=== PATIENT | female | born 1950 | race Caucasian/White ===

== ENCOUNTER 2022-06-23 10:44 | Emergency (ER) | payer MEDICARE, OTHER, SELFPAY ==
--- NOTE | ~2022-06-23 | XR_ITS ---
EXAMINATION: XR chest 2V DATE: 06/23/2022 11:24 INDICATION: Right-sided chest pain. TECHNIQUE: Frontal and lateral views of the chest were obtained. COMPARISON: None. FINDINGS: There is no pneumonia, pleural effusion, or pneumothorax. The heart size is normal. Surgica l clips overlie the chest. IMPRESSION: 1. No acute cardiopulmonary disease. Reviewed, dictated and finalized at location A.
[2022-06-23 10:58] VITALS: BP 148/69; PULSE 96; RESP 16; TEMP 36.7; O2SAT 95
--- NOTE | 2022-06-23 11:02 | ED.GENADULT ---
HPI - General Adult General Chief complaint: Eye Problems Stated complaint: eye prob, chest pain due to fall Time Seen by Provider: 06/23/22 11:05 Source: patient, RN notes reviewed and old records reviewed Mode of arrival: ambulatory Limitations: no limitations History of Present Illness HPI narrative: 71-year-old female who presents to express care with complaints of eye discharge and puffiness with some sclera redness bilaterally since yesterday morning, She has been experiencing some itching and eyes puffy with upper and lower eye lid swelling with some blurring of vision, denies any sharp pain to her eyes. Patient reports that 2 weeks ago she lifted a 5 gallon diesel can and she lost her balance and fell onto her tractor bumper hitting her chest. She states that she had some bruising along her upper chest and she also has some discomfort along right lateral chest wall area. Patient reports that bruising has subsided but remains tender when she takes a deep breath or when she coughs, denies any shortness of breath with SAO2 95% on room air MD complaint: eyes itching matted,contusion to chest with fall Onset (ago): week(s) (1 day eyes, and 2 weeks ago fall) Severity scale (1-10): 6 Treatments prior to arrival: cold therapy and other (tylenol, otc eye drop) Related Data Home Medications Medication Instructions Recorded Confirmed buprenorphine 10 mcg/hour weekly 1 patch transdermal WEEKLY 06/23/22 06/23/22 transdermal patch leflunomide 20 mg tablet (Arava) 20 mg PO DAILY 06/23/22 06/23/22 omeprazole 40 mg capsule,delayed 40 mg PO BID 06/23/22 06/23/22 release rituximab 10 mg/mL 10 mg IV MONTHLY 06/23/22 06/23/22 concentrate,intravenous (Rituxan) zolpidem 10 mg tablet 10 mg PO HS 06/23/22 06/23/22 Allergies Allergy/AdvReac Type Severity Reaction Status Date / Time Sulfa (Sulfonamide Allergy Itching Verified 06/23/22 11:13 Antibiotics) Review of Systems Review of Systems: CONSTITUTIONAL: Denies fever, chills, or sweats. EYES: Denies visual changes states some blurring,positive for redness, or mucoid discharge. ENT: Denies rhinorrhea, congestion, sore throat, or otalgia. CARDIOVASCULAR: Denies chest pain, palpitations, or edema, reports that she has some discomfort to upper chest and lateral right chest related to fall 2 weeks ago, RESPIRATORY: Denies cough or dyspnea. GASTROINTESTINAL: Denies abdominal pain, nausea, vomiting, or diarrhea. GENITOURINARY: Denies dysuria or hematuria. SKIN: Denies rash or itching. MUSCULOSKELETAL: Denies back pain, joint pain, or myalgia, some scattered joint pain related to history of rheumatoid arthritis NEUROLOGIC: Denies headache, numbness, or weakness. PSYCHIATRIC: Denies anxiety or depression. All systems reviewed & are unremarkable except as noted in HPI and below PMFSH Past Medical History Medical History (Updated 06/24/22 @ 07:39 by Emma Pineda NP) Breast cancer left Fracture of left wrist GERD (gastroesophageal reflux disease) Rheumatoid arthritis Surgical History Surgical History (Updated 06/24/22 @ 07:39 by Emma Pineda NP) H/O: hysterectomy History of bunionectomy S/P lumpectomy, left breast S/P removal of thyroid nodule Social History Social History (Updated 06/23/22 @ 12:15 by Emma Pineda NP) Smoking status: Never smoker Alcohol intake: current Alcohol use details: rare social Substance use type: does not use Living arrangements: alone Additional living arrangements comments: recent Gender identity (if verbalized by the patient): Female Comments At time of signature, agree with nursing past medical, surgical, social and family history. There is no relevant family history pertinent to the presenting complaint Exam Narrative: GENERAL: Well-appearing, well-nourished, and in no acute distress. HEAD: Normocephalic, atraumatic. EYES: PERRLA and EOMI. eye lids puffy with mucoid discharge vision a little blurry
[2022-06-23 11:17] VITALS: BP 148/69; PULSE 96; RESP 16; TEMP 36.7; O2SAT 95
== END 2022-06-23 11:45 | disposition home or self-care (01) ==
PROVIDERS: Emergency Provider Registered Nurse
DX: H10.9 Unspecified conjunctivitis (principal); S20.211A Contusion of right front wall of thorax, initial encounter; W19.XXXA Unspecified fall, initial encounter; K21.9 Gastro-esophageal reflux disease without esophagitis; M06.9 Rheumatoid arthritis, unspecified; Z85.3 Personal history of malignant neoplasm of breast
CPT/HCPCS: 71046; 99213; G0463

== ENCOUNTER 2022-08-01 17:36 | Emergency (ER) | payer MEDICARE, OTHER, SELFPAY ==
--- NOTE | ~2022-08-01 | XR_ITS ---
EXAMINATION: XR chest 2V DATE: 08/01/2022 18:03 INDICATION: Cough. Fever. TECHNIQUE: Frontal and lateral views of the chest were obtained. COMPARISON: Chest 2 views 06/23/2022 FINDINGS: There is no pneumonia, pleural effusion, or pneumothorax. Cardiomegaly is noted. Again seen is prominent extrapleural fat on the left. There are surgical clips in left axilla. Surgical clips o verlie the right upper chest. IMPRESSION: 1. Cardiomegaly. Reviewed, dictated and finalized at location A. IMPRESSION: 1. Cardiomegaly.
[2022-08-01 17:44] VITALS: BP 144/75; PULSE 102; RESP 18; TEMP 37.9; O2SAT 98
[2022-08-01 17:57] VITALS: BP 144/75; PULSE 102; RESP 18; TEMP 37.9; O2SAT 98
--- NOTE | 2022-08-01 18:18 | ED.URI ---
HPI - URI/Sore Throat General Chief Complaint: Upper Respiratory Infection Stated Complaint: Cough Source: patient, RN notes reviewed and old records reviewed Mode of arrival: ambulatory Limitations: no limitations History of Present Illness HPI Narrative: 72 year old female who present to express care with complaints of cough starting on with increased symptoms on Saturday. Patient reports that she has been using her inhalers,Robitussin, and Benzonatate for her symptoms with no improvement in her symptoms. Patient reports that she is hoarse and cough is hacking with no acute shortness of breath but continues to have low grade fevers. Patient does hav Rheumatoid arthritis and is on monthly biologicals to treat her arthritis. MD elicited complaint: cough and sore throat Pertinent past history: asthma and immunosuppression Onset (ago): day(s) (5-6) Treatments prior to arrival: other (inhalers, Robitussin, andBenzonatate) Related Data Home Medications Medication Instructions Recorded Confirmed leflunomide 20 mg tablet (Arava) 20 mg PO DAILY 06/23/22 08/01/22 omeprazole 40 mg capsule,delayed 40 mg PO BID 06/23/22 08/01/22 release rituximab 10 mg/mL 10 mg IV MONTHLY 06/23/22 08/01/22 concentrate,intravenous (Rituxan) zolpidem 10 mg tablet 10 mg PO HS 06/23/22 08/01/22 gabapentin 600 mg tablet 600 mg PO BID 08/01/22 08/01/22 Allergies Allergy/AdvReac Type Severity Reaction Status Date / Time Sulfa (Sulfonamide Allergy Itching Verified 08/01/22 17:44 Antibiotics) Review of Systems Review of Systems: CONSTITUTIONAL: reports malaise, chills, sweats, or fever. EYES: Denies visual changes, redness, or discharge. ENT: Reports rhinorrhea, congestion,no sinus pain or otalgia, positive for sore throat. CARDIOVASCULAR: Denies chest pain, palpitations, or edema. RESPIRATORY: Reports cough.? Denies acute dyspnea, increased cough with exertion and when lying down GASTROINTESTINAL: Denies abdominal pain, nausea, vomiting, diarrhea SKIN: Denies rash or itching. MUSCULOSKELETAL: Denies myalgia. NEUROLOGIC: Denies headache. All systems reviewed & are unremarkable except as noted in HPI and below PMFSH Past Medical History Medical History (Updated 08/01/22 @ 18:52 by Emma Pineda NP) Breast cancer left Fracture of left wrist GERD (gastroesophageal reflux disease) Rheumatoid arthritis Surgical History Surgical History (Updated 06/24/22 @ 07:39 by Emma Pineda NP) H/O: hysterectomy History of bunionectomy S/P lumpectomy, left breast S/P removal of thyroid nodule Social History Social History (Updated 06/23/22 @ 12:15 by Emma Pineda NP) Smoking status: Never smoker Alcohol intake: current Alcohol use details: rare social Substance use type: does not use Additional living arrangements comments: recent Gender identity (if verbalized by the patient): Female Comments At time of signature, agree with nursing past medical, surgical, social and family history. There is no relevant family history pertinent to the presenting complaint Exam Narrative: GENERAL: Well-appearing, well-nourished, and in no acute distress. HEAD: Normocephalic EYES: PERRLA, conjunctivae clear ENT: Nares clear, turbinates edematous and erythematous, clear discharge. Mucous membranes moist. TM pearly leger with dull light reflex bilaterally; no tragal tenderness. Oropharynx erythematous without lesions. Tonsils not enlarged and without exudate, no drooling, no hoarseness, no trismus, uvula midline. NECK: Supple. No lymphadenopathy CHEST: Clear to auscultation, breath sounds equal. No wheezing, rhonchi, rales, or stridor. No respiratory distress, speaks in full sentences.hoarseness with harsh non productive cough with SAO2 98% on room air HEART: Regular rate and rhythm. No murmur heard. SKIN: Warm, dry, no rash. NEURO: Alert and oriented x3. PSYCH: Normal mood and affect
== END 2022-08-01 19:00 | disposition home or self-care (01) ==
PROVIDERS: Emergency Provider Registered Nurse
DX: J06.9 Acute upper respiratory infection, unspecified (principal); R05.1 Acute cough; Z20.822 Contact with and (suspected) exposure to COVID-19; K21.9 Gastro-esophageal reflux disease without esophagitis; M06.9 Rheumatoid arthritis, unspecified; Z85.3 Personal history of malignant neoplasm of breast
CPT/HCPCS: 71046; 87426; 87804; 99213; C9803; G0463

== ENCOUNTER 2023-12-21 09:13 | Emergency (ER) | payer MEDICARE, OTHER, SELFPAY ==
--- NOTE | ~2023-12-21 | XR_ITS ---
EXAMINATION: XR chest 2V DATE: 12/21/2023 09:48 INDICATION: Cough and congestion TECHNIQUE: frontal and lateral views of the chest were obtained. COMPARISON: Chest radiograph dated 08/01/2022 FINDINGS: Unchanged opacity with sharply delineated margins at the side port is lateral right lower lung zone w hich could represent atelectasis/scarring versus focal increased subpleural fat. No new airspace opac ities, pulmonary edema, pleural effusion or pneumothorax. Heart size is normal. Surgical clips the le ft breast. Mild thoracic kyphosis with mild spondylosis and chronic mild anterior wedging of a couple mid thoracic vertebral bodies. IMPRESSION: 1. No acute cardiopulmonary disease. Reviewed, dictated and finalized at location A.
[2023-12-21 09:22] VITALS: BP 137/62; PULSE 76; RESP 20; TEMP 36.9; O2SAT 98
--- NOTE | 2023-12-21 09:34 | ED.GENADULT ---
HPI - General Adult General Chief complaint: Upper Respiratory Infection Stated complaint: Cough/Chest Congestion Time Seen by Provider: 12/21/23 09:34 Source: patient, RN notes reviewed and old records reviewed Mode of arrival: ambulatory Limitations: no limitations History of Present Illness HPI narrative: 73-year-old female to Express Care for complaint wheezing, nonproductive for 4 days. Patient endorses some subjective fever 2 days resolved. Patient history left breast cancer, treated with chemo and radiation. Patient has attempted to treat at home with [id number] medications with some relief. Patient able to control fluids by mouth Related Data Home Medications Medication Instructions Recorded Confirmed leflunomide 20 mg tablet (Arava) 20 mg PO DAILY 06/23/22 12/21/23 omeprazole 40 mg capsule,delayed 40 mg PO BID 06/23/22 12/21/23 release albuterol sulfate 90 mcg/actuation 2 puff inhalation QID PRN 12/21/23 12/21/23 aerosol inhaler Shortness Of Breath Or Wheezing budesonide-formoterol HFA 160 2 puff inhalation Q12H 12/21/23 12/21/23 mcg-4.5 mcg/actuation aerosol inhaler (Symbicort) Allergies Allergy/AdvReac Type Severity Reaction Status Date / Time Sulfa (Sulfonamide Allergy Intermediate Itching Verified 12/21/23 09:38 Antibiotics) Review of Systems Review of Systems: All systems reviewed & are unremarkable except as noted in HPI and below Constitutional: Constitutional: Reports as per HPI, Denies body ache(s), Denies chills and Reports fever(s) ( subjective; resolved) Eyes: Eyes: Reports no additional eye complaints ENT: Reports system reviewed and no additional complaints, except as documented, Denies headache(s) and Denies sore throat Cardiovascular: Cardiovascular: Reports no additional cardiovascular complaints, Denies chest pain and Denies dyspnea Respiratory: Respiratory: Reports no additional respiratory complaints, Reports cough ( nonproductive) and Denies dyspnea Musculoskeletal: Musculoskeletal: Reports no additional musculoskeletal complaints Neurologic: Reports system reviewed and no additional complaints, except as documented Psychiatric: Psychiatric: Reports no additional psychiatric complaints [facility] Past Medical History Medical History (Updated 12/21/23 @ 10:28 by Jeni Lowe APRN) Breast cancer left Fracture of left wrist GERD (gastroesophageal reflux disease) Rheumatoid arthritis Surgical History Surgical History (Updated 06/24/22 @ 07:39 by Emma Pineda NP) H/O: hysterectomy History of bunionectomy S/P lumpectomy, left breast S/P removal of thyroid nodule Social History Social History (Updated 06/23/22 @ 12:15 by Emma Pineda NP) Smoking status: Never smoker Alcohol intake: current Alcohol use details: rare social Substance use type: does not use Living arrangements: alone Additional living arrangements comments: recent Gender identity (if verbalized by the patient): Female Comments At the time of my signature, I reviewed and agree with the nursing past medical, surgical, social, and family history. There is no relevant family history pertinent to the patient complaint. Exam Const: General: cooperative, healthy appearing, comfortable, no acute distress, alert and well nourished Nutritional Appearance: well nourished Orientation/consciousness: patient oriented x3 Limitations: no limitations HENMT: Head: normal to inspection Ears: external ears normal Face/Nose/Sinus: Normal external nose present, Normal nares present, normal facial exam, No erythema and No edema Face and sinus: normal facial exam, no erythema and no edema Mouth: Yes Normal oral and palatal mucosa present Throat: posterior oropharynx abnormal erythema and postnasal drainage Eyes: General: appearance normal, both eyes and all related structures Neck: Neck: normal visual inspection, full ROM and no meningeal signs Lymphati
[2023-12-21] MEDS: predniSONE 20 MG TABLET 40 MG PO (09:53)
[2023-12-21] MEDS: ALBUTEROL SULFATE NEB 2.5 MG/3 ML INH INHALATION (09:54)
[2023-12-21] MEDS: IPRATROPIUM BR 0.02% INH SOLN 0.5 MG/2.5 ML VIAL INHALATION (09:54)
== END 2023-12-21 10:30 | disposition home or self-care (01) ==
PROVIDERS: Emergency Provider Nurse Practitioner Family
DX: J06.9 Acute upper respiratory infection, unspecified (principal); J45.901 Unspecified asthma with (acute) exacerbation; K21.9 Gastro-esophageal reflux disease without esophagitis; M06.9 Rheumatoid arthritis, unspecified; Z85.3 Personal history of malignant neoplasm of breast; Z90.12 Acquired absence of left breast and nipple
CPT/HCPCS: 71046; 94640; 99213; G0463; J7512

== ENCOUNTER 2024-11-28 18:08 | Emergency (ER) | payer MEDICARE, OTHER, SELFPAY ==
--- OUTSIDE RECORDS SUMMARY | 2024-11-28 18:13 | XMS_ITS | Encounter Summary ---
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 Name Role Phone Farzana Philippe MD Primary Care Provider Elsi Torre MD Unavailable Ashlyn Prince MD Unavailable Iker Contreras MD Unavailable Lesa CHARLES MD, Hang Dorsey Unavailable + Yonny Whitehead MD Unavailable Eric Lopez MD Unavailable [phone] Encounter Details Date Type Department Care Team (Late st Contact Info) Description 11/18/2017 Orders Only [facility] ProviderSanket MD [address] [place] [id number] Social History Tobacco Use Types Packs/Day Years Used Date Smoking Tobacco: Never Smokeless Tobacco: Never Alcohol Use Standard Drinks/Week Comments No 0 (1 standard drink = 0.6 oz pur e alcohol) Comments No Sex and Gender Information Value Date Recorded Sex Assigned at Not on file Legal Sex Female 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 us Historical Provider LAB BLOOD ORDERABLES Gina l Result documented in this encounter Visit Diagnoses Not on filedocumented in this encounter Additional Health Concerns Infection Onset Date Last Indicated Resolved Time COVID: Suspected 09/18/2022 09/18/2022 09/18/2022 6:50 PM LEATHER STAMPER COVID: Suspected 06/27/2023 06/27/2023 06/28/2023 3:07 AM CDT documented as of this encounter Care Teams Concrete Swimming Pool Installer Relationship Specialty Start Date End Date Farzana Philippe MD [address] [facility] [address] [place] [address] PCP - General 01/04/17 [place] [id number] [place] [address] Rheumatology 07/02/17 12/24/23 Ashlyn Prince MD [address] [place] [address] Obstetrics and Gynecology 07/15/17 Iker Contreras MD [address] [facility] [place] [place] [address] Medical Oncology 07/15/17 05/12/20 Hang Mcfadden III, MD [address] [place] [address] Radiation Oncology 07/15/17 Yonny Whitehead MD [address] [place] [address] Medical Oncologist/Hematologis t Hematology 05/13/20 Eric Lopez MD [address] [facility] [address] [place] [address] Consulting Physician Surgical Oncology 12/18/23 documented as of this encounter
--- OUTSIDE RECORDS SUMMARY | 2024-11-28 18:13 | XMS_ITS ---
Author Organization [facility] pelon Address [address] [place] [address] Care Team Providers Care Buccaro Name Role Phone Farzana Philippe MD Primary Care Provider Melecio FuentesOlgag Unavailable [phone] Allergies Allergen (clinical drug ingredient) Drug/Non Drug Allergy documented on EMR Reaction Allergy Type Onset Date Status meperidine Demerol Unknown Drug Allergy 01/30/2009 Activ e sulfasalazine sulfaSALAzine Unknown Drug Allergy 1 Active Substance with penicillin structure and antibacterial mechanism of action (substance) Penicillins Unknown Drug Allergy 07/24/2023 Active Substance with sulfonamide structure and antibacterial mechanism of action (substance) Sulfa Antibiotics Unknown Drug Allergy 07/19/2023 Active Kiwi Unknown Allergy 07/24/2023 Active Results Component Value Reference Range Notes CBC w auto diff Reviewed date:07/30/2024 09:42:15 PM Interpretation:Lab Result Generalized Performing Lab:[facility] , [address] [place] [address]. [facility] [address] Notes/Report: WBC 5.8 3.8-9.9 K/cumm Hgb 14.0 11.9-15.5 g/dL Hct 44.3 35.6-45.5 % Platelet Ct 196 150-400 K/cumm MPV 10.7 9.1-12.3 fL RBC 4.35 3.90-5.20 M/cumm MCV 101.8 81.3-96.4 fL MCH 32.2 27.1-33.3 pg MCHC 31.6 32.3-35.7 g/dL RDW CV 14.5 11.1-14.9 % RDW SD 54.2 35.7-48.1 fL NRBC Abs Auto 0.00 0.00-0.01 K/cumm Comprehensive metabolic pane l (CMP) Reviewed date:07/30/2024 09:42:15 PM Interpretation:Lab Result Generalized Performing Lab:[facility] , [address] [place] [address]. [place] [address] Notes/Report: Sodium 143 135-145 mmol/L Plasma Potassium 4.9 3.3-4.9 mmol/L Chloride 105 97-110 mmol/L Total CO2 29 22-32 mmol/L Anion Gap 9 2-15 mmol/L BUN 14 6-25 mg/dL Creatinine 0.78 0.60-1.10 mg/dL Glucose 103 70-199 mg/dL Interpretive Data Fasting glucose >/= 126 mg/dl is diagnostic for diabetes. Fasting is defined as no caloric intake for at least 8 hours. Fasting glucose between 100 mg/dl to 125 mg/dl is diagnostic of prediabetes. In a patient with classic symptoms of hyperglycemia or hyperglycemic crisis, a random glucose >/= 200 mg/dl is diagnostic for diabetes. In the absence of unequivocal hyperglycemia, results should be confirmed by repeat testing. The classification and Diagnosis of Diabetes Diabetes Care 2021; 46: S19-S40. Current interpretive data was last revised 2022. Total Calcium 9.3 8.5-10.3 mg/dL Total Bilirubin 0.4 0.1-1.2 mg/dL Plasma Total Protein 6.3 6.5-8.5 g/dL Albumin 3.8 3.5-5.0 g/dL Alkaline Phosphatase 93 40-130 Units/L ALT 33 7-45 Units/L AST 27 10-45 Units/L REASON FOR VISIT yd/3 month follow up/flc, RA Medications Medication SIG (Take, Route, Frequency, Duration) Notes Start Date End Date Status valACYclovir HCl 500 MG take 2 tablets (1,000 mg) by oral route once daily Oral 1 Active Leflunomide 20 MG 1 tablet Orally Once a day for 90 days 03/04/2024 10/28/2024 Active Hydroxychloroquine Sulfate 200 MG 2 Orally daily for 90 days 10/28/2024 Active Symbicort 80-4.5 MCG/ACT inhale 2 puffs by inhalation route 2 times per day in the morning and evening Inhalation 2 Active Melatonin 10 MG take 1 capsule by oral route once Oral 1 Active cyanocobalamin (vitamin B-12) 5,000 mcg take 1 capsule by oral route once oral 1 *Reorder from [facility] for eRx and Interaction Alerts* Active Restasis 0.05 % instill 1 drop into right eye by ophthalmic route every 12 hours Ophthalmic 2 Active Montelukast Sodium 10 MG take 1 tablet (10 mg) by oral route once daily in the evening Oral 1 Active Calcium Pantothenate 500 MG chew 1 tablet by oral route once Oral 1 Active Gabapentin 600 MG take 1 tablet (600 mg) by oral route 3 times per day Oral 3 Active Zolpidem Tartrate 10 MG take 1 tablet (10 mg) by oral route once daily at bedtime Oral 1 Active Loratadine 10 MG take 1 tablet (10 mg) by oral route once daily Oral 1 Active Vitamin D (Ergocalciferol) 1.25 MG (18066 UT) take 2 capsules monthly Oral Active Flonase Allergy Relief 50 MCG/ACT - Nasal Active Albuterol Sulfate HFA 108 (90 Base) MCG/ACT 2 puffs QID prn Inhalation 05/03/2010 Active Culturelle - daily oral *Pick strength-form from [facility] for eRX* Active OCUVITE ADULT 50 PLUS 250 mg (90 mg-160 mg) take 1 capsule by oral route once oral 1 *Reorder from [facility] for eRx and Interaction Alerts* Active Magnesium 250 MG take 1 tablet by oral route once Oral 1 Active Problems Problem Type SNOMED Code ICD Code Onset Dates Problem Status W/U Status Risk Notes Problem Personal history of primary malignant neoplasm of breast (219065689) History of breast cancer (Z85.3) Active confirmed Vital Signs Temperature 97.3 degrees Fahrenheit 07/30/20 Blood pressure systolic 124 mm Hg 07/30/20 Blood pressure diastolic 74 mm Hg 024 Heart Rate 76 /min 07/30/2024 Height 63 in 07/30/2024 Weight 191.6 lbs 07/30/2024 BMI 33.94 kg/m2 07/30/2024 Oximetry 97 % 07/30/2024 Height-cm 160.02 cm 07/30/2024 Weight-kg 86.89 kg 07/30/2024 Encounters Encounter Location Date Provider Diagnosis [facility] [address] [place] [address] 07/30/2024 Rachelle Fuentes Rheumatoid arthritis without rheumatoid factor, multiple sites M06.09 ; History of breast cancer Z85.3 and High risk medication use Z79.899 Assessments Encounter Date Diagnosis (ICD Code) Assessment Notes Treatment Notes Treatment Clinical Notes Section Notes 07/30/2024 Rheumatoid arthritis without rheumatoid factor, multiple sites (ICD-10 - M06.09) clinically stable, continue arava and plaquenil, labs today, return in 3 months 07/30/2024 History of breast cancer (ICD-10 - Z85.3) clinically stable, continue arava and plaquenil, labs today, return in 3 months 07/30/2024 High risk medication use (ICD-10 - Z79.899) clinically stable, continue arava and plaquenil, labs today, return in 3 months Plan Of Treatment Medication Medication Name Sig Start Date Stop Date Notes Leflunomide 20 MG 1 tablet Orally Once a day for 90 days 03/04/2024 10/28/2024 Hydroxychloroquine Sulfate 200 MG 2 Oral ly daily for 90 days 10/28/2024 Next Appt Details Follow Up: 3 Months, Reason: Provider Name:Rachelle Fuentes, 01/28 10:45:00 AM, [address] [facility] [address], [place], [address], Progress Notes * Jody KIM KDOB:[birth year] (74 yo F)Acc No.[id number]:07/30/2024 Progress Notes Patient: Jina Jody GAVIRIA K Provider: Ever FUENTES MD :1950 A ge:74 Y S ex:Female Date:07/30/2024 Address:[address] [place] [address], [place] [address] Pcp:Farzana Philippe MD Subjective: * Chief Complaints: * Y d/3 month follow up/flcRA * HPI: G eneral Follow up: on arava 20mg/day and plaquenil 400mg/day, arthritis stable, no pain today, no am stiffness She used to see Dr. Torre for rheumatoid arthritis. She started rituxan/truxima in 2022 (q 4 months). The last 2 infusion were 05/21/23 and 06/03/23. This regimen helped with arthritis pain but caused frequent respiratory infections. She failed MTX. Enbrel caused frequent respiratory infections eye exam: 06/2024. * ROS: G eneral / Constitutional: Patient denies f marcelino, chills. P atient complains of?fatigue. M usculoskeletal: Patient complains of s ee HPI. S kin: Patient denies r rossana. * Medical History: * Surgical History: H ysterectomy: 1983; 2761-13-19Crcq surgery; 6398-04-65Bnegk removal: right; 8809-80-46qadt stripping; 2581-32-61uvdnrpj lobectomy, Date of Procedure: 1992; 5935-65-39Hkf Surgery; 9707-17-77Zwop surgery; 7090-48-78Tdoz Ligation; 8834-42-92Mmcqbjfhfi, left breast; 8854-35-91tlcsxprermdvs; 2023-07-24 * Hospitalization/Major Diagno stic Procedure: * Family History: M igrated Family History: Brain Cancer , Breast cancer , Ovarian cancer . * Social History: M igrated Social History: M igrated Social History: :: 3 Children , Exercise :: Walks :: note : 07/24/2023 - walks 2 times a week, Marital Status :: , Substance Use :: Alcohol-Does not give any significant history , Substance Use :: Tobacco :: Never , ,Substance Use :: Tobacco:: Quantity :: none. * Medications: T akingOCUVITE ADULT 50 PLUS 250 mg (90 mg-160 mg) capsule take 1 capsule by oral route once oral 1 , Notes to Pharmacist: *Reorder from [facility] for eRx and Interaction Alerts*Magnesium 250 MG Tablet take 1 tablet by oral route once Oral 1 Flonase Allergy Relief 50 MCG/ACT Suspension - Nasal Albuterol Sulfate HFA 108 (90 Base) MCG/ACT Aerosol Solution 2 puffs QID prn Inhalation Culturelle - daily oral , Notes to Pharmacist: *Pick strength-form from [facility] for eRX*Gabapentin 600 MG Tablet take 1 tablet (600 mg) by oral route 3 times per day Oral 3 Zolpidem Tartrate 10 MG Tablet take 1 tablet (10 mg) by oral route once daily at bedtime Oral 1 Loratadine 10 MG Tablet take 1 tablet (10 mg) by oral route once daily Oral 1 Vitamin D (Ergocalciferol) 1.25 MG (42224 UT) Capsule take 2 capsules monthly Oral Calcium Pantothenate 500 MG Tablet chew 1 tablet by oral route once Oral 1 Restasis 0.05 % Emulsion instill 1 drop into right eye by ophthalmic route every 12 hours Ophthalmic 2 Montelukast Sodium 10 MG Tablet take 1 tablet (10 mg) by oral route once daily in the evening Oral 1 Symbicort 80-4.5 MCG/ACT Aerosol inhale 2 puffs by inhalation route 2 times per day in the morning and evening Inhalation 2 Melatonin 10 MG Capsule take 1 capsule by oral route once Oral 1 cyanocobalamin (vitamin B-12) 5,000 mcg capsule take 1 capsule by oral route once oral 1 , Notes to Pharmacist: *Reorder from [facility] for eRx and Interaction Alerts*valACYclovir HCl 500 MG Tablet take 2 tablets (1,000 mg) by oral route once daily Oral 1 Taking OCUVITE ADULT 50 PLUS 250 mg (90 mg-160 mg) capsule take 1 capsule by oral route once oral 1 , Notes to Pharmacist: *Reorder from [facility] for eRx and Interaction Alerts*Taking Magnesium 250 MG Tablet take 1 tablet by oral route once Oral 1 Taking Flonase Allergy Relief 50 MCG/ACT Suspension - Nasal Taking Albuterol Sulfate HFA 108 (90 Base) MCG/ACT Aerosol Solution 2 puffs QID prn Inhalation Taking Culturelle - daily oral , Notes to Pharmacist: *Pick strength-form from [facility] for eRX*Taking Gabapentin 600 MG Tablet take 1 tablet (600 mg) by oral route 3 times per day Oral 3 Taking Zolpidem Tartrate 10 MG Tablet take 1 tablet (10 mg) by oral route once daily at bedtime Oral 1 Taking Loratadine 10 MG Tablet take 1 tablet (10 mg) by oral route once daily Oral 1 Taking Vitamin D (Ergocalciferol) 1.25 MG (61524 UT) Capsule take 2 capsules monthly Oral Taking Calcium Pantothenate 500 MG Tablet chew 1 tablet by oral route once Oral 1 Taking Restasis 0.05 % Emulsion instill 1 drop into right eye by ophthalmic route every 12 hours Ophthalmic 2 Taking Montelukast Sodium 10 MG Tablet take 1 tablet (10 mg) by oral route once daily in the evening Oral 1 Taking Symbicort 80-4.5 MCG/ACT Aerosol inhale 2 puffs by inhalation route 2 times per day in the morning and evening Inhalation 2 Taking Melatonin 10 MG Capsule take 1 capsule by oral route once Oral 1 Taking cyanocobalamin (vitamin B-12) 5,000 mcg capsule take 1 capsule by oral route once oral 1 , Notes to Pharmacist: *Reorder from [facility] for eRx and Interaction Alerts*Taking valACYclovir HCl 500 MG Tablet take 2 tablets (1,000 mg) by oral route once daily Oral 1 DiscontinuedFurosemide 20 MG Tablet take 1 tablet (20 mg) by oral route once daily Oral 1 Vitamin D (Ergocalciferol) 28119 UNIT Capsule Oral Medication List reviewed and reconciled with the patientDiscontinued Furosemide 20 MG Tablet take 1 tablet (20 mg) by oral route once daily Oral 1 Discontinued Vitamin D (Ergocalciferol) 36051 UNIT Capsule Oral Medication List reviewed and reconciled with the patient * Allergies: D emerol: Allergy - Onset Date 01/30/2009sulfaSALAzine: Allergy - Onset Date 01/03/2011Penicillins: Allergy - Onset Date 07/24/2023Sulfa Antibiotics: Allergy - Onset Date 07/19/2023iwi: Allergy - Onset Date 07/24/2023no[Allergies Verified] Objective: * Vitals: B P:124/74mm Hg, HR:76/min, Temp:97.3F, Oxygen sat %:97%, Wt:191.6lbs, Wt- k.89kg, Ht:63in, Ht-cm:160.02cm, BMI:33.94Index, Body Surface Area:1.97. * Examination: G eneral Examination: General appearance: a lert, well-nourished and in no acute distress. Head: n ormocephalic, atraumatic. Eyes: n ormal. Skin: n o rash. Lungs: r espiratory effort normal. N eurology: Speech: n ormal. P sychiatry: Affect / mood: a ppropriate. R heumatology: n o synovitis. Assessment: * Assessment: 1. R heumatoid arthritis without rheumatoid factor, multiple sites - M06.09 (Primary) ? 2 . H istory of breast cancer - Z85.3 3 . H igh risk medication use - Z79.899 clinically stable, continue arava and plaquenil, labs today, return in 3 months Plan: * Treatment: * Procedure Codes: G 2211 Complex e/m visit add on * Follow Up: 3 Months * Billing Information: * Visit Code: 78668 Office Visit, Est Pt., Level 4. * Procedure Codes: G2211 Complex e/m visit add on. * Sign off status: Completed true * Provider: Ever FUENTES MD Date: 1 Generated for Sung kendall/Aroldo/Nargisitting on: 0 11/28/2024 06:13 PM TRANSFORMATION COACH History and Physical Notes * HPI (History of Present Illness) Category Sub-Category Detail Notes Category Not es General Follow up on arava 20mg/day and plaquenil 400mg/day, arthritis stable, no pain today, no am stiffness She used to see Dr. Torre for rheumatoid arthritis. She started rituxan/truxima in 2022 (q 4 months). The last 2 infusion were 05/21/23 and 06/03/23. This regimen helped with arthritis pain but caused frequent respiratory infections. She failed MTX. Enbrel caused frequent respiratory infections eye exam: 06/2024 Examination Category Sub-Category Detail Notes Category Not es Rheumatology no synovitis Neurology Speech: normal Psychiatry Affect / mood: appropriate General Examination General appearance: alert, w ell-nourished and in no acute distress Head: normocephalic, atrau matic Eyes: normal Lungs: respiratory effort n ormal Skin: no rash
--- OUTSIDE RECORDS SUMMARY | 2024-11-28 18:13 | XMS_ITS | Clinical Summary ---
Author Organization [facility] Address [facility] [place] [address] Care Team Providers Care Specialty Foods Cook Name Role Phone Farzana Philippe MD Primary Care Provider Yonny Whitehead MD Unavailable [facility] [place] Un[facility] Allergies Active Allergy Reactions Criticality Noted Date Comments Amoxicillin-Pot Clavulanate Rash Medium 08/06/2022 Kiwi Extract Shortness of Breath High 11/17/2020 Sulfa Antibiotics Itching 07/06/2013 Reaction: Itching, , Reaction: Itching, Reaction: Itching, , , , Reaction: Itching, , , Medications B Complex Vitamins (VITAMIN B COMPLEX OR) Take 1 tablet by mouth daily. Takes either Vitamin B complex or Vitamin B12 Active Calcium Carbonate (CALCIUM 500 OR) Take 1 tablet by mouth daily. Takes calcium 630 mg tablets at home Active albuterol sulfate HFA 108 (90 Base) MCG/ACT inhaler Inhale 2 puffs into the lungs every 6 (six) hours as needed. Active anastrozole (ARIMIDEX) 1 MG tablet Take 1 mg by mouth nightly. 07/19/2022 Active azelastine (ASTELIN) 0.1 % nasal spray 1 spray by Each Nostril route 2 (two) times a day. 08/06/2022 Active budesonide-form oterol (SYMBICORT) 80-4.5 MCG/ACT inhaler Inhale 2 puffs into the lungs 2 (two) times daily. Active vitamin D2, ergocalciferol, (DRISDOL) 01326 UNITS capsule Take 1 capsule by mouth every 14 (fourteen) days. 07/17/2022 Active furosemide (LASIX) 20 MG tablet Take 20 mg by mouth daily. 05/03/2022 Active gabapentin (NEURONTIN) 600 MG tablet Take 1 tablet by mouth 3 (three) times daily as needed. 07/19/2022 Active guaiFENesin-cod eine (GUAIFENESIN AC) 100-10 MG/5ML syrup Take 1 Dose by mouth as needed. 08/01/2022 Active Loratadine 10 MG Cap Take 10 mg by mouth daily. Active montelukast (SINGULAIR) 10 MG tablet Take 10 mg by mouth nightly. 04/26/2022 Active valACYclovir (VALTREX) 500 MG tablet Take 500 mg by mouth 2 (two) times daily as needed. 12/22/2021 Active zolpidem (AMBIEN) 10 MG tablet Take 1 tablet by mouth nightly as needed. 07/13/2022 Active magnesium oxide (MAG-OX) 250 MG tablet Take 250 mg by mouth daily. Active cycloSPORINE (RESTASIS) 0.05 % ophthalmic emulsion 1 drop 2 (two) times daily. Active omeprazole (PRILOSEC) 20 MG capsule Take 40 mg by mouth daily. Active fluticasone propionate (FLONASE) 50 MCG/ACT nasal spray 1 spray by Each Nostril route 2 (two) times a day. Active Multiple Vitamins-Minera ls (CENTRUM ADULTS OR) Take 1 tablet by mouth daily. Active Melatonin 10 MG Cap Take 1 capsule by mouth nightly. Active Cyanocobalamin (VITAMIN B-12) 5000 MCG SL Tab Acti ve Multiple Vitamins-Minera ls (OCUVITE ADULT 50+ OR) Take 1 tablet by mouth daily. Active lactobacillus (CULTURELLE) Cap capsule Take 1 capsule by mouth daily. Active Active Problems Problem Noted Date Diagnosed Date Lumbar stenosis with neurogenic claudication 02/2023 Family History Medical History Relation Comments Stroke Brother Stomach cancer Father Heart Attack Maternal Grandfather Heart Disease Maternal Grandfather Breast Cancer Maternal Grandmother Cancer Maternal Grandmother Ovarian Cancer Maternal Grandmother Cancer Mother Ovarian Cancer Mother Relation Status Comments Brother Father (Age 76) of esopha herbie, stomach cancer Maternal Grandfather Maternal Grandmother Mother (Age 54) of ovaria n cancer Sister Alive Social History Tobacco Use Types Packs/Day Years Used Date Smoking Tobacco: Never Smokeless Tobacco: Never Tobacco Cessation:Counseling Given: Not Answered Alcohol Use Standard Drinks/Week Comments Never 0 (1 standard drink = 0.6 oz pur e alcohol) Comments No Sex and Gender Information Value Date Recorded Sex Assigned at Not on file Legal Sex Female 3:52 PM CDT Gender Identity Not on file Sexual Orientation Not on file Last Filed Vital Signs Vital Sign Reading Time Taken Comments Blood Pressure 111/59 10/12/2022 8:26 AM METROLOGIST Pulse 73 10/12/2022 8:26 AM METROLOGIST Temperature 36.7 C (98.1 F) 10/12/2022 8:26 AM METROLOGIST Respiratory Rate 18 10/12/2022 8:26 AM METROLOGIST Oxygen Saturation 99% 10/12/2022 9:12 AM METROLOGIST Inhaled Oxygen Concentration - - Weight 81.4 kg (179 lb 7.3 oz) 10/11/2022 9:49 A M METROLOGIST Height 160 cm (5' 3 ) 10/11/2022 9:49 AM METROLOGIST Body Mass Index 31.79 10/11/2022 9:49 AM METROLOGIST Plan of Treatment Health Maintenance Due Date Last Done Comments Colorectal Cancer Screening Colonoscopy (10 Years) 1950 Mammogram Screening 1990 Annual Medicare Wellness Visit 2015 Dexa Scan (General) 2015 Zoster Vaccines (3 of 3) 04/26/2022 03/01/2022, 06/08 COVID-19 Vaccine ( season) 2024 10/01/2021, 12/17/2020, 11/19/2020 Influenza Adult (#1) 2024 07/13/2021, 08/17/2019, 07/12/2018, Additional history exists RSV Immunization or 60+ Years (1 - 1-dose 75+ series) 2025 DTaP, Tdap and Td Vaccines (3 - Td or Tdap) 07/12/2028 07/12/2018, 05/25/2010 Pneumococcal Vaccine: 65+ Years Completed 08/17/2019, 07/12/2018, 11/14/2016, Additional history exists Hepatitis C Completed 08/28/2022, 08/28/2022 Meningococcal B Vaccine Aged Out No l onger eligible based on patient's age to complete this topic Meningococcal Vaccine Aged Out No samanta jami eligible based on patient's age to complete this topic RSV Immunizations Under 20 Months Aged Out No longer eligible based on patient's age to complete this topic Goals Goal Patient Goal Type Associated Problems Recent Progress Patient-Stated? Author Health - patient able to perform ADLs independently Lifestyle No Harrison mcgowan, Billy Mccullough RN Insurance MEDICARE [facility] Care Teams Specialty Foods Cook Relationship Specialty Start Date End Date Farzana Philippe MD [address] [id number] PCP - General INTERNAL MEDICINE 07/23/22 Yonny Whitehead MD [address] [place] [address] HEMATOLOGY/ONCOLOGY 09/18/22 Nell Veronica NP [address] [phone] NURSE PRACTITIONER ADULT HEALTH 09/20/22
--- OUTSIDE RECORDS SUMMARY | 2024-11-28 18:13 | XMS_ITS | Patient Health Summary ---
Author Organization [facility] Address [address] [facility] [place] [address] Care Team Providers Care Timekeeper Supervisor Name Role Phone Torito Albrecht MD Unavailable Aleida Forde MD Primary Care Provider Note from [facility],non-owned Affiliates and Associated Physician Practices is amultiple site organization consisting of ambulatory clinics and hospital sitesin [place], [place], [place] and [place]. This disclosure is being madepursuant to the Care Everywhere program and may not contain all information available regarding this patient. Last updated 18.[facility] Allergies * Sulfa Drugs Medications * Be aware that medications may not be up to date on this document. Alwaysverify current medications with the patient. * fluticasone-salmeterol (ADVAIR DISKUS) 100-50 MCG/DOSE inhaler Inhale 1 Puff by mouth 2 times daily. * zolpidem CR (AMBIEN CR) 12.5 MG tablet Take 12.5 mg by mouth nightly as needed. * B Complex CAPS Take by mouth. * Calcium Carbonate (CALCIUM 500 PO) Take by mouth. * Calcium Carbonate-Vitamin D (CALCIUM 600-D PO) Take by mouth. * calcium 200 MG tablet Take 200 mg by mouth once daily. * doxycycline (VIBRAMYCIN) 100 MG capsule Take 100 mg by mouth every 12 hours. * [place]-3 Fatty Acids (FISH OIL) 500 MG CAPS Take by mouth. * glucosamine 500 MG CAPS capsule Take 1 Cap by mouth once daily. * Loratadine 10 MG CAPS Take by mouth. * hydroxychloroquine (PLAQUENIL) 200 MG tablet Take by mouth once daily. * POTASSIUM PO Take by mouth. * albuterol HFA (PROAIR HFA) 108 (90 BASE) MCG/ACT inhaler Inhale 2 Puffs by mouth every 6 hours as needed. * montelukast (SINGULAIR) 10 MG tablet Take 10 mg by mouth at bedtime. * B Complex-C (SUPER B COMPLEX/VITAMIN C PO) Take by mouth. * Vitamin D3 (CHOLECALCIFEROL) 2000 UNITS CAPS capsule Take 2,000 Units by mouth once daily. * Ergocalciferol (VITAMIN D2) 2000 UNITS TABS Take by mouth. * budesonide-formoterol (SYMBICORT) 80-4.5 MCG/ACT inhaler Inhale 2 puffs by mouth 2 times daily * omeprazole (PRILOSEC) 20 MG capsule Take 20 mg by mouth daily before breakfast * anastrozole (ARIMIDEX) 1 MG tablet Take 1 mg by mouth once daily * fosamprenavir (LEXIVA) 700 MG tablet Take 700 mg by mouth once daily * HYDROcodone-acetaminophen (NORCO) 5-325 MG tablet(Started 12/17/2019) Take 1 tablet by mouth every 6 hours as needed for Pain Active Problems Problem Noted Date Diagnosed Date Knee pain 07/06/2013 Quadriceps strain 07/06/2013 Social History Tobacco Use Types Packs/Day Years Used Date Smoking Tobacco: Never Smokeless Tobacco: Never Alcohol Use Standard Drinks/Week Comments Never 0 (1 standard drink = 0.6 oz pur e alcohol) AUDIT-C Answer Date Recorded Frequency of Alcohol Consumption Never 12/17/2019 Average Number of Drinks Not on file 020 Frequency of Binge Drinking Not on file 12/05 Sex and Gender Information Value Date Recorded Sex Assigned at Not on file Gender Identity Not on file Sexual Orientation Not on file Last Filed Vital Signs Vital Sign Reading Time Taken Comments Blood Pressure 141/86 12/17/2019 2:45 PM CDT Pulse 82 12/17/2019 2:55 PM CDT Temperature 36.6 C (97.8 F) 12/17/2019 2:12 PM CDT Respiratory Rate 21 12/17/2019 2:55 PM CDT Oxygen Saturation 96% 12/17/2019 2:55 PM CDT Inhaled Oxygen Concentration - - Weight 87.8 kg (193 lb 8 oz) 12/17/2019 11:41 AM CDT Height 160 cm (5' 3 ) 12/17/2019 11:41 AM CDT Body Mass Index 34.28 12/17/2019 11:41 AM CDT Procedures * DERMATOPATHOLOGY(Performed 05/10/2021) * IMAGING/RADIOLOGY/XRAY RESULTS ORDER(Performed 12/18/2019) * CARDIAC RHYTHM STRIP ORDER(Performed 12/18/2019) * PATHOLOGY TISSUE EXAM (STL)(Performed 12/17/2019) Performed for Diagnosis unknown * EXCISION BONE CYST/TUMOR FOOT/ANKLE(Performed 12/17/2019) * PERIPHERAL BLOCK(Performed 12/17/2019) * XR KNEE RIGHT 2VW OR LESS(Performed 07/06/2013) Performed for Knee pain * C-REACTIVE PROTEIN SENSITIVE(Performed 12/05/2009) Performed for Rheumatoid Arthritis (HCC) * CBC W AUTO DIFFERENTIAL(Performed 12/05/2009) Performed for Rheumatoid Arthritis (HCC) * ERYTHROCYTE SEDIMENTATION RATE(Performed 12/05/2009) Performed for Rheumatoid Arthritis (HCC) * COMPREHENSIVE METABOLIC PANEL(Performed 12/05/2009) Performed for Rheumatoid Arthritis (HCC) * GROSS + MICRO EXAM(Performed 04/08/2008) * GROSS + MICRO EXAM(Performed 03/31/2008) * GROSS + MICRO EXAM(Performed 11/22/2006) * GROSS + MICRO EXAM(Performed 05/19/2004) Results * DERMATOPATHOLOGY (05/10/2021 12:00 AM CDT) Case Report Dermatopathology Report Case: [id number] Authorizing Provider: Miky Klein Jr., MD Collected: 05/10/2021 12:00 AM Ordering Location: [facility] DermPath Lab Received: 05/11/2021 12:59 PM Pathologist: Maya Plasencia MD Specimen: Skin, right medial superior chest 3:00 PM CDT DERMATOPATHOLOGY LABORATORY Final Diagnosis Specimen A. 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 . 3:00 PM CDT DERMATOPATHOLOGY LABORATORY Gross Description Specimen A: Received is one formalin filled container labeled with the patient's name and designated right medial superior chest. The specimen consists of a shave biopsy measuring [id number]. Jar 0. 3:00 PM CDT DERMATOPATHOLOGY LABORATORY Microscopic Description Specimen A. SKIN, right medial superior chest: Sections show hyperkeratosis, papillomatosis, hypergranulosis, and acanthosis. Inflammatory cells are present within the dermis. These histological findings can be seen in a verruca vulgaris or a seborrheic keratosis. This lesion is present at the margin of the specimen. 3:00 PM CDT DERMATOPATHOLOGY LABORATORY Disclaimer An external and internal positive and negative controls are appropriate for the histochemical, immunohistochemical and immunofluorescence stain(s) in this case (if any), except where stated explicitly. The performance characteristics of the stain(s) cited in this report were developed and its performance characteristic determined by the Dermatopathology Laboratory at [facility], directed by Dr. Polo Plasencia. These tests need not be, and therefore are not, approved by the [place] Food and Drug Administration. The tests are used for clinical purposes. Billing Codes Specimen Charges Stain Charges 73915 1 3:00 PM CDT DERMATOPATHOLOGY LABORATORY Embedded Images 3:00 PM CDT DERMATOPATHOLOGY LABORATORY Pathology/Cytolog y TISSUE SPECIMEN FROM SKIN / Unknown 05/10/2021 05/11/2021 12:59 PM CDT Miky Klein Jr., MD LAB - PATHOLOGY /CYTOLOGY ORDERABLES DERMATOPATHOLOGY LABORATORY [facility] - Department of Dermatology [address], [address] [phone] * IMAGING RADIOLOGY XRAY RESULTS ORDER (12/18/2019 3:22 PM CDT) Anatomical Region Laterality Modality Other Narrative 12/18/2019 3:22 PM CDT Ordered by an unspecified provider. Scanned Document IMAGING * CARDIAC RHYTHM STRIP ORDER (12/18/2019 12:51 PM CDT) Narrative 12/18/2019 12:51 PM CDT Ordered by an unspecified provider. Scanned Document CARDIAC SERVICES ORD ERABLES * GROSS + MICRO EXAM (STL) (12/17/2019 1:44 PM CDT) Case Report Surgical Pathology Report Case: [id number] Authorizing Provider: Tommy Bender DPM Collected: 12/17/2019 01:44 PM Ordering Location: [facility] Received: 12/18/2019 01:15 PM Pathologist: Zhang Jay MD Specimen: Tissue, ulceration left foot 12/21/2019 3:47 PM CDT [facility] Final Diagnosis Ulceration, left foot, excision: - Hyperplastic squamous epithelium and underlying stroma with ulceration, granulation tissue, and abscess formation SD/ns 12/21/2019 3:47 PM T [facility] Clinical History Ulceration of left foot. 12/21/2019 3:47 PM CDT [facility] Gross Description Received in a container of formalin and labeled Jody Perez and ulceration left foot are two unoriented pieces of dukes-leger skin. The larger piece measures 5 x 0.9 x 0.3 cm. Centrally located is a slightly shallow yellow-brown ulcer measuring 0.6 x 0.3 cm. It is 0.2 cm from the nearest skin and soft tissue resection margin (inked). Sectioning displays a slightly friable, dukes-leger cut surface. The smaller piece measures 1 x 0.9 x 0.3 cm. The epidermal surface is dukes-leger and slightly disrupted. Sectioning displays a dukes-leger, friable cut surface. Radio Machinist sections are submitted as follows: A1 - ulcer A2 - tips of both ends A3 - smaller piece, submitted entirely JS/ns 12/21/2019 3:47 PM CDT [facility] Microscopic Description The inflammation is exuberant. There is no evidence of dysplasia or malignancy. SD/ns 12/21/2019 3:47 PM CDT [facility] Disclaimer All histochemical and/or immunohistochemical results are interpreted with controls that demonstrate appropriate staining reactions before reporting results. Note on use of immunocytochemistry reagents: This test was developed and its performance characteristic determined by [facility], Department of Laboratory Medicine. It has not been cleared or approved by the U.S. Food and Drug Administration (FDA). The FDA has determined that such clearance or approval is not necessary. The test is used for clinical purpose. It should not be regarded as investigational or for research. This laboratory is certified to perform high complexity testing. The performance characteristics of the IHC/FABIAN assays have been validated on formalin-fixed paraffin embedded tissues only. The assays have not been validated on decalcified tissues. Results should be interpreted with caution. 12/21/2019 3:47 PM CDT [facility] Embedded Images 12/21/2019 3:47 PM CDT [facility] Pathology/Cytolo gy TISSUE SPECIMEN / Unknown 12/17/2019 1:44 PM CDT 12/18/2019 1:15 PM CDT Tommy Bender DPM LAB - PATHOLOGY/CYTO LOGY ORDERABLES [facility] [address] [place] [address] * Peripheral Nerve Block (12/17/2019 12:42 PM CDT) Narrative Kyaw Kemp MD - 12/17/2019 12:42 PM CDT Kyaw Kemp MD 12/17/2019 12:44 PM Peripheral Nerve Block Procedure: Peripheral Nerve Block Patient Location: PACU Preprocedure Section: Indications: at surgeon's request and postop pain management. Pre-anesthetic Checklist: Patient identified, IV Checked, Site examined and clear, Risks and benefits discussed, Surgical consent verified, Monitors and equipment, Time-out performed, Informed consent obtained, Pre-op evaluation done, Questions answered/anesthesia questions answered, Allergies reviewed and Removal hand/wrist jewelry Monitors: BP, Pulse Ox and EKG. Patient Condition: sedated, meaningful contact maintained throughout procedure Patient Position: right lateral decubitus Patient Sedated? Yes Sedation Type: mild Sedation Agents: fentaNYL (PF) (SUBLIMAZE) injection, 50 mcg midazolam (VERSED) injection, 2 mg Procedure Section Laterality: left Block Performed: popliteal Prep: Chloraprep Strerile Field: gloves, hat/cap and sterile ultrasound sleeve Skin localized with: lidocaine (XYLOCAINE) 1 % injection, 2 mL Needle Type: nerve stimulator and Echogenic insultaed Needle Gauge: 21 Needle Length: 90 mm Needle Depth: 2 cm Catheter? No Nerve Stimulator? Yes Ultrasound Guided? Yes Technique: in plane Visualization: Preliminary scan performed, Important anatomical structures identified, Needle tip visualized throughout the procedure, Target identified, No intraneural or intravascular puncture occurred, Ultrasound image in chart, Local visualized surrounding nerve on ultrasound and Hydrodissection utilized Injection was made incrementally with constant monitoring and aspirations every 5 mL's Injection Assessment: Slow fractionated injection Block Agents or Additives used? Yes Block agents used: ropivacaine (NAROPIN) 5 MG/ML (0.5%) injection, 40 mL Procedure Tolerance: tolerated well and no immediate complications Assessment: other - comments (pending) Procedure Start Time: 12/17/2019 12:37 PM. Procedure End Time: 12/17/2019 12:40 PM. Procedure Total Time: 3 minutes. Staff Section Anesthesia Provider: Kyaw Kemp MD, Performed the procedure Additional Comments: This block was performed for post operative analgesia at surgeon's request. Please see intraop navigator for medications administered. . Kyaw Kemp MD GENERAL ANESTHESIA O RDERABLES * XR KNEE 1 OR 2 VW RIGHT (07/06/2013 9:57 AM CDT) Anatomical Region Laterality Modality Lower Extremity Radiographic Sia ging Dannie 07/06/2013 9:58 AM CDT Tania Moffett 07/06/2013 9:58 AM Please see progress notes for result. Procedure Note Tania Moffett - 07/06/2013 9:58 AM CDT Please see progress notes for result. Torito Albrecht MD DIAGNOSTIC IMAGING ORDERABLES * (ABNORMAL) C-REACTIVE PROTEIN SENSITIVE (12/05/2009 3:40 PM PSYCHIATRY RESIDENT) C-Reactive Protein High Sensitivity 0.737(H) 0.000 - 0.500 mg/dl [facility] BLOOD SPECIMEN / Unknown 12/05/2009 3:40 PM PSYCHIATRY RESIDENT Jaylon Carlson III, MD LAB - CHEMISTRY PETAR HERNANDEZ [facility] [address] [place] [address] * SED RATE WESTERGREN AUTO (12/05/2009 3:40 PM PSYCHIATRY RESIDENT) Erythrocyte Sedimentation Rate Westergren 13 0 - 30 mm/Hr [facility] Hematocrit 41.8 37.0 - 47.0 % [facility] BLOOD SPECIMEN / Unknown 12/05/2009 3:40 PM PSYCHIATRY RESIDENT Jaylon Carlson III, MD LAB - HEMATOLOGY ALENA HOOKER Performing Organization Address [facility] Co de Phone Number [facility] [address] [place] [phone] * (ABNORMAL) CBC W AUTO DIFFERENTIAL (12/05/2009 3:40 PM PSYCHIATRY RESIDENT) WBC 4.8 4.0 - 10.0 K/CUMM [facility] RBC 4.72 3.80 - 5.80 M/CUMM [facility] Hemoglobin 14.1 12.0 - 16.0 gm/dl [facility] Hematocrit 41.8 37.0 - 47.0 % [facility] MCV 88.6 80.0 - 100.0 fl [facility] MCH 29.9 26.0 - 34.0 pg [facility] MCHC 33.7 31.0 - 37.0 gm/dl [facility] Platelet Count 164 150 - 400 K/CUMM [facility] RDW 13.9 11.5 - 14.5 % [facility] Granulocytes % 48.8(L) 50 - 70 % [facility] Lymphocytes % 35.4 20 - 40 % [facility] Monocytes % 10.2 0 - 12 % [facility] Eosinophils % 4.8 0 - 5 % [facility] Basophils % 0.6 0 - 2 % [facility] Granulocytes Absolute 2.34 2.00 - 7.00 x1000/cmm [facility] Lymphocytes Absolute 1.70 0.80 - 4.00 x1000/cmm [facility] Monocytes Absolute 0.49 0.00 - 1.20 x1000/cmm [facility] Eosinophils Absolute 0.23 0.00 - 0.50 x1000/cmm [facility] Basophils Absolute 0.03 0.00 - 0.20 x1000/cmm [facility] BLOOD SPECIMEN / Unknown 12/05/2009 3:40 PM PSYCHIATRY RESIDENT Jaylon Carlson III, MD LAB - HEMATOLOGY ORD ERABLES Performing Organization Address [facility] Co de Phone Number [facility] [address] [place] [address] * (ABNORMAL) COMPREHENSIVE METABOLIC PANEL (12/05/2009 3:40 PM PSYCHIATRY RESIDENT) Sodium 145 137 - 145 mmol/L [facility] Potassium 4.0 3.6 - 5.0 mmol/L [facility] Chloride 102 98 - 107 mmol/L [facility] BUN 11 7 - 17 mg/dl [facility] Creatinine 0.79 0.52 - 1.04 mg/dl [facility] Glucose 62(L) 65 - 105 mg/dl [facility] Calcium 9.8 8.4 - 10.2 mg/dl [facility] Alkaline Phosphatase 85 38 - 126 U/L [facility] AST 54(H) 8 - 39 U/L [facility] Bilirubin Total 0.3 0.2 - 1.3 mg/dl [facility] Protein Total 8.4(H) 6.3 - 8.2 gm/dl [facility] Albumin 4.3 3.9 - 5.0 gm/dl [facility] CO2 32(H) 22 - 30 mmol/L [facility] ALT 67(H) 9 - 52 U/L [facility] eGFR by MDRD 74 >60 mL/min/1.7 3m2 [facility] Comment eGFR [facility] Comment: The eGFR does not apply to patients who are younger than 18 or older than 70. BLOOD SPECIMEN / Unknown 12/05/2009 3:40 PM PSYCHIATRY RESIDENT Jaylon Carlson III, MD LAB - CHEMISTRY PETAR HERNANDEZ Performing Organization Address [facility] Co de Phone Number [facility] [address] [place] [address] * GROSS + MICRO EXAM (04/08/2008 5:04 PM CDT) Only the most recent of4 resultswithin the time period is included. Result CASE NUMBER [id number] Comment: ORDERING PHYSICIAN MARINE HINDS SPECIMEN TYPE Tissue-sigmoid colon Date 04/10/2008 Physician Meño Hinds Gross Description The specimen is received in one Formalin-filled container labeled with the patient's name, Jody Perez, and sigmoid colon and consists of a 7.0 x 2.5 cm portion of colon with attached mesocolon for a total measurement of 10.0 x 5.5 cm. The specimen is bisected revealing a folded pink-dukes mucosa and a thickened wall measuring up to 0.8 cm. Scattered diverticuli are seen. No abscess formation is noted. There are no luminal masses or lesions. Radio Machinist sections are submitted in cassettes A through C. MS/na Microscopic Exam Microscopic examination reveals evidence of diverticular bowel disease. There are foci of colonic mucosa invaginating through the muscular wall. The muscular wall is markedly hyperplastic. There is no evidence of active inflammation, necrosis, or pericolonic abscess formation. The diverticulum are not filled with blood. The mucosa is unremarkable. GM/na Diagnosis I. Sigmoid colon, excision -- Diverticulosis -- No evidence of active inflammation or hemorrhage GM/na [employer] C[employer] Attendant na Pathologist Pamella Alvarado M.D. [place]. 04/12/2008 1514 <1> CPT code 08245 MISCELLANEOUS SAMPLES / Unknown 04/08/2008 5:04 PM CDT 04/10/2008 8:08 AM CDT Historical Provider LAB - PATHOLOGY/C YTOLOGY ORDERABLES Care Teams Timekeeper Supervisor Relationship Specialty Start Date End Date Aleida Forde MD [address] [facility] [address] [place] [address] PCP - General 05/11/21 Torito Albrecht MD Orthopedic Surgery 07/06/13
--- OUTSIDE RECORDS SUMMARY | 2024-11-28 18:13 | XMS_ITS | Encounter Summary ---
Author Organization [facility] Address [address] [place] [address] Care Team Providers Care Ski Topper Name Role Phone Torito Albrecht MD Unavailable Aleida Forde MD Primary Care Provider Encounter Details Date Type Department Care Team (Late st Contact Info) Description 05/11/2021 Lab Requisition [facility] Care DermPath Lab [address] [facility] [facility] [place] [id number] Miky Klein Jr., MD [address] [facility] [address] [place] [address] Social History Tobacco Use Types Packs/Day Years [...] Procedure Name Priority Date/Time Associated Diagnosis Comments DERMATOPATHOLOGY Routine 05/10/2021 12:0 0 AM CDT documented in this encounter Results * DERMATOPATHOLOGY (05/10/2021 12:00 AM CDT) Case Report Dermatopathology Report Case: [id number] Authorizing Provider: Miky Klein Jr., MD Collected: 05/10/2021 12:00 AM Ordering Location: [facility] DermPath Lab Received: 05/11/2021 12:59 PM Pathologist: Maya Plasencia MD Specimen: Skin, right medial superior chest 3:00 PM CDT DERMATOPATHOLOGY LABORATORY Final Diagnosis Specimen A. SKIN, right medial superior chest: BENIGN VERRUCOUS KERATOSIS, INFLAMED WITH ASSOCIATED CHANGES OF PRURIGO NODULARIS (L82.1) 3:00 PM CDT DERMATOPATHOLOGY LABORATORY Clinical History Neoplasm of uncertain behavior of skin vs prurigo nodule. . 3:00 PM CDT DERMATOPATHOLOGY LABORATORY Gross Description Specimen A: Received is one formalin filled container labeled with the patient's name and designated right medial superior chest. The specimen consists of a shave biopsy measuring [id number]. Jar 0. 3:00 PM CDT DERMATOPATHOLOGY LABORATORY [...] characteristic determined by the Dermatopathology Laboratory at [facility], directed by Dr. Polo Plasencia. These tests need not be, and therefore are not, approved by the [place] Food and Drug Administration. The tests are used for clinical purposes. Billing Codes Specimen Charges Stain Charges 44484 1 1 3:00 PM CDT DERMATOPATHOLOGY LABORATORY Embedded Images 1 3:00 PM CDT DERMATOPATHOLOGY LABORATORY Pathology/Cytolog y TISSUE SPECIMEN FROM SKIN / Unknown 05/10/2021 05/11/2021 12:59 PM CDT Miky Klein Jr., MD LAB - PATHOLOGY /CYTOLOGY ORDERABLES DERMATOPATHOLOGY LABORATORY [facility] - Department of Dermatology [facility] [address] [facility] [phone] documented in this encounter Visit Diagnoses Not on filedocumented in this encounter Care Teams Ski Topper Relationship Specialty Start Date End Date Aleida Forde MD [address] [facility] [address] [place] [address] PCP - General 05/11/21 Torito Albrecht MD Orthopedic Surgery 07/06/13 documented as of this encounter
--- OUTSIDE RECORDS SUMMARY | 2024-11-28 18:13 | XMS_ITS | Patient Health Record ---
Author Organization [facility] pelon Address [address] [place] [address] Care Team Providers Care Manager Council Name Role Phone Farzana Philippe MD Primary Care Provider Unavailesteban JayRachelle Unavailable [phone] Allergies Allergen (clinical drug ingredient) Drug/Non Drug [...] Range Notes CBC w auto diff Reviewed date:04/30/2024 05:44:53 PM Interpretation:Lab Result Generalized Performing Lab:[facility] , [address] [place] [address]. [facility] [id number] Notes/Report: WBC 5.9 3.8-9.9 K/cumm Hgb 13.4 11.9-15.5 g/dL Hct 42.5 35.6-45.5 % Platelet Ct 170 150-400 K/cumm MPV 10.2 9.1-12.3 fL RBC 4.35 3.90-5.20 M/cumm MCV 97.7 81.3-96.4 fL MCH 30.8 27.1-33.3 pg MCHC 31.5 32.3-35.7 g/dL RDW CV 13.8 11.1-14.9 % RDW SD 50.2 35.7-48.1 fL NRBC Abs Auto 0.00 0.00-0.01 K/cumm Comprehensive metabolic pane l (CMP) Reviewed date:04/30/2024 05:44:53 PM Interpretation:Lab Result Generalized Performing Lab:[facility] , [facility]. [place] [address] Notes/Report: Sodium 143 135-145 mmol/L Plasma Potassium 4.9 3.3-4.9 mmol/L Chloride 105 97-110 mmol/L Total CO2 29 22-32 mmol/L Anion Gap 9 2-15 mmol/L BUN 12 6-25 mg/dL Creatinine 0.66 0.60-1.10 mg/dL Glucose 84 70-199 mg/dL Interpretive Data Fasting glucose >/= [...] data was last revised 2022. Total Calcium 9.1 8.5-10.3 mg/dL Total Bilirubin 0.4 0.1-1.2 mg/dL Plasma Total Protein 6.4 6.5-8.5 g/dL Albumin 4.0 3.5-5.0 g/dL Alkaline Phosphatase 91 40-130 Units/L ALT 30 7-45 Units/L AST 31 10-45 Units/L CBC w auto diff Reviewed date:07/30/2024 09:42:15 PM Interpretation:Lab Result Generalized Performing Lab:[facility] , [facility]. [place] [address] Notes/Report: WBC 5.8 3.8-9.9 K/cumm Hgb 14.0 [...] date:07/30/2024 09:42:15 PM Interpretation:Lab Result Generalized Performing Lab:[facility] , [address] [place] [address]. [place] [address] Notes/Report: Sodium 143 135-145 mmol/L Plasma Potassium [...] 33 7-45 Units/L AST 27 10-45 Units/L Comprehensive metabolic pane l (CMP) Reviewed date:10/28/2024 08:30:44 AM Interpretation:Lab Result Generalized Performing Lab:[facility] , [address] [place] [address]. [place] [address] Notes/Report: Sodium 142 135-145 mmol/L Plasma Potassium 4.4 3.3-4.9 mmol/L Chloride 104 97-110 mmol/L Total CO2 30 22-32 mmol/L Anion Gap 8 2-15 mmol/L BUN 12 6-25 mg/dL Creatinine 0.65 0.60-1.10 mg/dL Glucose 98 70-199 mg/dL Interpretive Data Fasting glucose >/= [...] classification and Diagnosis of Diabetes Diabetes Care 202; 46: S19-S40. Current interpretive data was last revised 2022. Total Calcium 9.3 8.5-10.3 mg/dL Total Bilirubin 0.3 0.1-1.2 mg/dL Plasma Total Protein 6.7 6.5-8.5 g/dL Albumin 4.1 3.5-5.0 g/dL Alkaline Phosphatase 116 40-130 Units/L ALT 26 7-45 Units/L AST 28 10-45 Units/L Differential Automated Reviewed date:04/30/2024 05:46:26 PM Interpretation: Performing Lab:[facility] , [address] [place] [address]. [facility] [id number] Notes/Report: Neut Abs 3.2 1.5-6.5 K/cumm ImmGran Abs 0.0 0.0-0.1 K/cumm Lymphocyte Abs 1.1 0.8-3.3 K/cumm [place] Abs 0.7 0.2-0.8 K/cumm Eos Abs 0.8 0.0-0.5 K/cumm Baso Abs 0.0 0.0-0.1 K/cumm Neut Pct 54.4 Interpretive Data Percent cell count reference ranges are not reported, since discordance with absolute values may lead to misinterpretation of CBC data. Current Interpretive Data was last revised on 2018. ImmGran Pct 0.0 Interpretive Data Percent cell count reference ranges are not reported, since discordance with absolute values may lead to misinterpretation of CBC data. Current Interpretive Data was last revised on 2018. Lymph Pct 19.1 Interpretive Data Percent cell count reference ranges are not reported, since discordance with absolute values may lead to misinterpretation of CBC data. Current Interpretive Data was last revised on 2018. [place] Pct 12.3 Interpretive Data Percent cell count reference ranges are not reported, since discordance with absolute values may lead to misinterpretation of CBC data. Current Interpretive Data was last revised on 2018. Eos Pct 13.7 Interpretive Data Percent cell count reference ranges are not reported, since discordance with absolute values may lead to misinterpretation of CBC data. Current Interpretive Data was last revised on 2018. Baso Pct 0.5 Interpretive Data Percent cell count reference ranges are not reported, since discordance with absolute values may lead to misinterpretation of CBC data. Current Interpretive Data was last revised on 2018. eGFR Reviewed date:04/30/2024 05:46:26 PM Interpretation: Performing Lab:[facility] , [address] [facility]. [place] [address] Notes/Report: eGFR >90 >=60 mL/min/1.73 m2 Interpretive Data Reference Interval Normal >/= 90 mL/min/1.73m2 Mildly decreased* 60 - 89 mL/min/1.73m2 Mildly to moderately decreased 45 - 59 mL/min/1.73m2 Moderately to severely decreased 30 - 44 mL/min/1.73m2 Severely decreased 15 - 29 mL/min/1.73m2 Kidney Failure < 15 mL/min/1.73m2 *Relative to young adult level Estimated glomerular filtration rate is determined by the 2020 CKD-EPI equation recommended by the National Kidney Foundation (A Unifying Approach to GFR Estimation: Recommendations of the NKF-ASK Task Force on Reassessing the Inclusion of Race in Diagnosing Kidney Disease, JASN 202). The CKD-EPI equation should not be used for patients with unstable renal function and has not been validated in children and those over 70. Current interpretive data was last reviewed 2021. Differential Automated Reviewed date:07/30/2024 09:42:33 PM Interpretation: Performing Lab:[facility] , [facility] [facility]. [place] [address] Notes/Report: Neut Abs 3.2 1.5-6.5 K/cumm ImmGran Abs 0.0 0.0-0.1 K/cumm Lymphocyte Abs 1.2 0.8-3.3 K/cumm [place] Abs 0.7 0.2-0.8 K/cumm Eos Abs 0.7 0.0-0.5 K/cumm Baso Abs 0.1 0.0-0.1 K/cumm Neut Pct 54.5 Interpretive Data Percent cell count reference ranges are not reported, since discordance with absolute values may lead to misinterpretation of CBC data. Current Interpretive Data was last revised on 2018. ImmGran Pct 0.2 Interpretive Data Percent cell count reference ranges are not reported, since discordance with absolute values may lead to misinterpretation of CBC data. Current Interpretive Data was last revised on 2018. Lymph Pct 21.1 Interpretive Data Percent cell count reference ranges are not reported, since discordance with absolute values may lead to misinterpretation of CBC data. Current Interpretive Data was last revised on 2018. [place] Pct 12.0 Interpretive Data Percent cell count reference ranges are not reported, since discordance with absolute values may lead to misinterpretation of CBC data. Current Interpretive Data was last revised on 2018. Eos Pct 11.3 Interpretive Data Percent cell count reference ranges are not reported, since discordance with absolute values may lead to misinterpretation of CBC data. Current Interpretive Data was last revised on 2018. Baso Pct 0.9 Interpretive Data Percent cell count reference ranges are not reported, since discordance with absolute values may lead to misinterpretation of CBC data. Current Interpretive Data was last revised on 2018. eGFR Reviewed date:07/30/2024 09:42:33 PM Interpretation: Performing Lab:[facility] , [facility]. [facility] [address] Notes/Report: eGFR 80 >=60 mL/min/1.73 m2 Interpretive Data Reference Interval Normal >/= 90 mL/min/1.73m2 Mildly decreased* 60 - 89 mL/min/1.73m2 Mildly to moderately decreased 45 - 59 mL/min/1.73m2 Moderately to severely decreased 30 - 44 mL/min/1.73m2 Severely decreased 15 - 29 mL/min/1.73m2 Kidney Failure < 15 mL/min/1.73m2 *Relative to young adult level Estimated glomerular filtration rate is determined by the 2020 CKD-EPI equation recommended by the National Kidney Foundation (A Unifying Approach to GFR Estimation: Recommendations of the NKF-ASK Task Force on Reassessing the Inclusion of Race in Diagnosing Kidney Disease, JASN 202). The CKD-EPI equation should not be used for patients with unstable renal function and has not been validated in children and those over 70. Current interpretive data was last reviewed 2021. eGFR Reviewed date:10/28/2024 08:30:59 AM Interpretation: Performing Lab:[facility] , [facility]. [facility] [address] Notes/Report: eGFR >90 >=60 mL/min/1.73 m2 Interpretive Data Reference Interval Normal >/= 90 mL/min/1.73m2 Mildly decreased* 60 - 89 mL/min/1.73m2 Mildly to moderately decreased 45 - 59 mL/min/1.73m2 Moderately to severely decreased 30 - 44 mL/min/1.73m2 Severely decreased 15 - 29 mL/min/1.73m2 Kidney Failure < 15 mL/min/1.73m2 *Relative to young adult level Estimated glomerular filtration rate is determined by the 2020 CKD-EPI equation recommended by the National Kidney Foundation (A Unifying Approach to GFR Estimation: Recommendations of the NKF-ASK Task Force on Reassessing the Inclusion of Race in Diagnosing Kidney Disease, JASN 2020). The CKD-EPI equation should not be used for patients with unstable renal function and has not been validated in children and those over 70. Current interpretive data was last reviewed 2021. Reason For Referral No Information Medications Medication SIG (Take, Route, Frequency, Duration) Notes Start Date End Date Status Gabapentin 600 MG take 1 tablet (600 mg) by oral route 3 times per day Oral 3 Active Culturelle - daily oral *Pick strength-form from [employer] for eRX* Active valACYclovir HCl 500 MG take 2 tablets (1,000 mg) by oral route once daily Oral 1 Active Albuterol Sulfate HFA 108 (90 Base) MCG/ACT 2 puffs QID prn Inhalation 05/03/2010 Active cyanocobalamin (vitamin B-12) 5,000 mcg take 1 capsule by oral route once oral 1 *Reorder from [employer] for eRx and Interaction Alerts* Active Leflunomide 20 MG 1 tablet Orally Once a day for 90 days Active Flonase Allergy Relief 50 MCG/ACT - Nasal Active Melatonin 10 MG take 1 capsule by oral route once Oral 1 Active Hydroxychloroquine Sulfate 200 MG 2 Orally daily for 90 days Active Magnesium 250 MG take 1 tablet by oral route once Oral 1 Active Symbicort 80-4.5 MCG/ACT inhale 2 puffs by inhalation route 2 times per day in the morning and evening Inhalation 2 Active OCUVITE ADULT 50 PLUS 250 mg (90 mg-160 mg) take 1 capsule by oral route once oral 1 *Reorder from [employer] for eRx and Interaction Alerts* Active Montelukast Sodium 10 MG take 1 tablet ( 10 mg) by oral route once daily in the evening Oral 1 Active Nucala 100 MG as directed Subcutaneous Active Restasis 0.05 % instill 1 drop into right eye by ophthalmic route every 12 hours Ophthalmic 2 Active Calcium Pantothenate 500 MG chew 1 tablet by oral route once Oral 1 Active Vitamin D (Ergocalciferol) 1.25 MG (59864 UT) take 2 capsules monthly Oral Active Loratadine 10 MG take 1 tablet (10 mg) by oral route once daily Oral 1 Active Zolpidem Tartrate 10 MG take 1 tablet (1 0 mg) by oral route once daily at bedtime Oral 1 Active Immunizations Vaccine Route Administration Date Status Comme nts Tdap Unknown 05/18/2010 Administered migrated Leg Patid= [id number] Date=05/18/2010 Vac= Tdap TB Skin Test Unknown 04/26/2008 Administered migrated L egPatid= [id number] Date=04/26/2008 Vac= TB Skin Test Pneumococcal conjugate PCV 13 Unknown 10/02/2007 Administered migrated LegPati d= [id number] Date=10/02/2007 Vac= Pneumonia vaccine Problems Problem Type SNOMED Code ICD Code Onset Dates Problem Status W/U Status Risk Notes Problem 744241272 Rheumatoid arthritis without rheumatoid factor, multiple sites (M06.09) Active confirmed Problem Personal history of primary malignant neoplasm of breast (567844990) History of breast cancer (Z85.3) Active confirmed Vital Signs Heart Rate 76 /min 07/30/2024 Temperature 97.3 degrees Fahrenheit 07/30/2024 Height-cm 160.02 cm 07/30/2024 Oximetry 97 % 07/30/2024 Blood pressure diastolic 74 mm Hg 07/30/2024 Weight-kg 86.89 kg 07/30/2024 Height 63 in 07/30/2024 Blood pressure systolic 124 mm Hg 07/30/2024 Weight 191.6 lbs 07/30/2024 BMI 33.94 kg/m2 07/30/2024 Encounters Encounter Location Date Provider Diagnosis [facility] [address] [place] [address] 01/28/2024 Rachelle Du Rheumatoid arthritis without rheumatoid factor, multiple sites M06.09 ; History of breast cancer Z85.3 and High risk medication use Z79.899 [facility] [address], [place] [address] 04/30/2024 Rachelle Du Rheumatoid arthritis without rheumatoid factor, multiple sites M06.09 ; History of breast cancer Z85.3 and High risk medication use Z79.899 [facility] [address], [place] [address] 07/30/2024 Rachelle Du Rheumatoid arthritis without rheumatoid factor, multiple sites M06.09 ; History of breast cancer Z85.3 and High risk medication use Z79.899 [facility] [address], [place] [address] 10/27/2024 Rachelle Du Rheumatoid arthritis without rheumatoid factor, multiple sites M06.09 ; History of breast cancer Z85.3 and High risk medication use Z79.899 [facility] [address], [place] [address] 03/04/2024 Rachelle Du [facility] [address] [place] [address] 04/20/2024 Rachelle Du [facility] [address], [place] [address] 04/27/2024 Rachelle Du [facility] [address] [place] [address] 04/27/2024 Rachelle Du Assessments Encounter Date Diagnosis (ICD Code) Assessment Notes Treatment Notes Treatment Clinical Notes Section Notes 01/28/2024 Rheumatoid arthritis without rheumatoid factor, multiple sites (ICD-10 - M06.09) meds helping, arthritis stable, continue arava and plaquenil, advised about eye exam, avoid TNF blockers due to hx of breast cancer, labs today, return in 3 months 04/30/2024 Rheumatoid arthritis without rheumatoid factor, multiple sites (ICD-10 - M06.09) meds helping, arthritis stable, continue arava and plaquenil, advised about eye exam, avoid TNF blockers due to hx of breast cancer, labs today, return in 3 months 07/30/2024 Rheumatoid arthritis without rheumatoid factor, multiple sites (ICD-10 - M06.09) clinically stable, continue arava and plaquenil, labs today, return in 3 months 10/27/2024 Rheumatoid arthritis without rheumatoid factor, multiple sites (ICD-10 - M06.09) clinically stable, refill arava and plaquenil, labs today, return in 3 months 07/30/2024 History of breast cancer (ICD-10 - Z85.3) clinically stable, continue arava and plaquenil, labs today, return in 3 months 10/27/2024 History of breast cancer (ICD-10 - Z85.3) clinically stable, refill arava and plaquenil, labs today, return in 3 months 01/28/2024 History of breast cancer (ICD-10 - Z85.3) meds helping, arthritis stable, continue arava and plaquenil, advised about eye exam, avoid TNF blockers due to hx of breast cancer, labs today, return in 3 months 04/30/2024 History of breast cancer (ICD-10 - Z85.3) meds helping, arthritis stable, continue arava and plaquenil, advised about eye exam, avoid TNF blockers due to hx of breast cancer, labs today, return in 3 months 01/28/2024 High risk medication use (ICD-10 - Z79.899) meds helping, arthritis stable, continue arava and plaquenil, advised about eye exam, avoid TNF blockers due to hx of breast cancer, labs today, return in 3 months 04/30/2024 High risk medication use (ICD-10 - Z79.899) meds helping, arthritis stable, continue arava and plaquenil, advised about eye exam, avoid TNF blockers due to hx of breast cancer, labs today, return in 3 months 10/27/2024 High risk medication use (ICD-10 - Z79.899) clinically stable, refill arava and plaquenil, labs today, return in 3 months 07/30/2024 High risk medication use (ICD-10 - Z79.899) clinically stable, continue arava and plaquenil, labs today, return in 3 months Plan Of Treatment Pending Test Test Name Order Date CBC With Differential/Platelet CBC With Differential/Platelet 4 Chem-Comprehensive 01/28/2024 Chem-Comprehensive 10/30/2023 CBC w auto diff 10/27/2024 Next Appt Details Provider Name:Rachelle Jay, 01/28 10:45:00 AM, [address], [facility] [address], [place], [address], Insurance Providers Payer Name Payer Address Payer Phone Subscriber Number Group Number Insured Name Patient Relationship to Insured Coverage Start Date Coverage End Date Medicare [address] [address] [place] [address] [id number] Jody Perez Self - patient is the insured [address] [address] [place] [address] [phone] [id number] Jody Perez Self - patient is the insured Medical (General) History Medical History History ICD Code Abdominal pain, Date of Onset: 9 ; Acute upper respiratory infe ctions; unspecified site, Date of Onset: 05/05/2009 ; Arthritis, Date of Onset: 01/28/2009 ; Cough, Date of Onset: 02/27/2010 ; Diverticulitis Of Colon, Date of Onset: 01/28/2009 ; Gastroesophageal Reflux, Date of Onset: 01/28/2009 ; Hyperlipidemia, Date of Onset: 0 ; OPIOID ANALGESICS, Date of Onset: 2008 ; Osteopenia, Date of Onset: 05/18/2010 ; Palpitations, Date of Onset: 05/05/2009 ; Rheumatoid arthritis; Back Pain; Breast cancer; Osteoporosis; Rheumatoid arthritis; Sleep apnea; Ulcerative Colitis; Surgical History Surgery Date(Month/Year) Hysterectomy: 1984; 2023-07-24 Foot surgery; 2023-07-24 Ovary removal: right; 2023-07-24 vein stripping; 2023-07-24 thyroid lobectomy, Date of Procedure: ; 2023-07-24 Toe Surgery; 2023-07-24 Back surgery; 2023-07-24 Vein Ligation; 2023-07-24 Lumpectomy, left breast; 2023-07-24 sigmoidectomy; 2023-07-24
--- OUTSIDE RECORDS SUMMARY | 2024-11-28 18:13 | XMS_ITS ---
Author Organization [facility] pelon Address [address] [place] [address] Care Team Providers Care Commanding Officer Motorized Squad Name Role Phone Farzana Philippe MD Primary Care Provider Melecio FuentesOlgag Unavailable [phone] Allergies Allergen (clinical drug ingredient) Drug/Non Drug [...] date:04/30/2024 05:44:53 PM Interpretation:Lab Result Generalized Performing Lab:[facility] , [address] [place] [address]. [facility] [address] Notes/Report: WBC 5.9 3.8-9.9 K/cumm Hgb 13.4 [...] date:04/30/2024 05:44:53 PM Interpretation:Lab Result Generalized Performing Lab:[facility] , [facility] [place] [address] Notes/Report: Sodium 143 135-145 mmol/L Plasma Potassium [...] 30 7-45 Units/L AST 31 10-45 Units/L REASON FOR VISIT yd/3 month follow up/flc, RA Medications Medication SIG (Take, Route, Frequency, Duration) Notes Start Date End Date Status Zolpidem Tartrate 10 MG take 1 tablet (10 mg) by oral route once daily at bedtime Oral 1 Active Gabapentin 600 MG take 1 tablet (600 mg) by oral route 3 times per day Oral 3 Active Vitamin D (Ergocalciferol) 1.25 MG (34697 UT) take 2 capsules monthly Oral Active Loratadine 10 MG take 1 tablet (10 mg) by oral route once daily Oral 1 Active Calcium Pantothenate 500 MG chew 1 tablet by oral route once Oral 1 Active Magnesium 250 MG take 1 tablet by oral route once Oral 1 Active Albuterol Sulfate HFA 108 (90 Base) MCG/ACT 2 puffs QID prn Inhalation 05/03/2010 Active Flonase Allergy Relief 50 MCG/ACT - Nasal Active Furosemide 20 MG take 1 tablet (20 mg) by oral route once daily Oral 1 Active Culturelle - daily oral *Pick strength-form from [employer] for eRX* Active valACYclovir HCl 500 MG take 2 tablets (1,000 mg) by oral route once daily Oral 1 Active Leflunomide 20 MG 1 tablet Orally Once a day for 90 days 03/04/2024 07/26/2024 Active OCUVITE ADULT 50 PLUS 250 mg (90 mg-160 mg) take 1 capsule by oral route once oral 1 *Reorder from [facility] for eRx and Interaction Alerts* Active Hydroxychloroquine Sulfate 200 MG 2 Orally daily for 90 days 07/26/2024 Active cyanocobalamin (vitamin B-12) 5,000 mcg take 1 capsule by oral route once oral 1 *Reorder from [facility] for eRx and Interaction Alerts* Active Restasis 0.05 % instill 1 drop into right eye by ophthalmic route every 12 hours Ophthalmic 2 Active Montelukast Sodium 10 MG take 1 tablet (10 mg) by oral route once daily in the evening Oral 1 Active Symbicort 80-4.5 MCG/ACT inhale 2 puffs by inhalation route 2 times per day in the morning and evening Inhalation 2 Active Vitamin D (Ergocalciferol) 36299 UNIT Oral Active Melatonin 10 MG take 1 capsule by oral route once Oral 1 Active Vital Signs Temperature 98.4 degrees Fahrenheit 04/30/20 24 Blood pressure systolic 130 mm Hg 04/30/20 24 Blood pressure diastolic 88 mm Hg 024 Heart Rate 78 /min 04/30/2024 Height 63 in 04/30/2024 Weight 191.0 lbs 04/30/2024 BMI 33.83 kg/m2 04/30/2024 Oximetry 98 % 04/30/2024 Encounters Encounter Location Date Provider Diagnosis [facility] [address] [place] [address] 04/30/2024 Rachelle Fuentes Rheumatoid arthritis without rheumatoid factor, multiple sites M06.09 ; History of breast cancer Z85.3 and High risk medication use Z79.899 Assessments Encounter Date Diagnosis (ICD Code) Assessment Notes Treatment Notes Treatment Clinical Notes Section Notes 04/30/2024 Rheumatoid arthritis without rheumatoid factor, multiple [...] cancer, labs today, return in 3 months Plan Of Treatment Next Appt Details Follow Up: 3 Months, Reason: Provider Name:Rachelle Fuentes, 01/28 10:45:00 AM, [address], [address], [place], [address], Progress Notes * JUDY Jody KDOB:[birth year] (73 yo F)Acc No.[id number]:04/30/2024 Progress Notes Patient: Jody FISHER Provider: Ever FUENTES MD :1950 A ge:73 Y S ex:Female Date:04/30/2024 [facility] Pcp:Farzana Philippe MD Subjective: * Chief Complaints: [...] Enbrel caused frequent respiratory infections eye exam: she will schedule. * ROS: G eneral / Constitutional: Patient denies f marcelino, chills. P atient complains of?fatigue. M usculoskeletal: Patient complains of s ee HPI. S kin: Patient denies r rossana. * Medical History: * Surgical History: H ysterectomy: 1983; 8442-25-50Rcwf surgery; 3289-91-59Xyvpz removal: right; 1153-72-09iguo stripping; 0008-68-05oljoaqt lobectomy, Date of Procedure: 1992; 7250-47-11Xpo Surgery; 1575-69-12Pbkd surgery; 9854-02-29Bbtv Ligation; 5224-21-29Wcoysisxpp, left breast; 8164-23-43lysppebdlvzqd; 2023-07-24 * Hospitalization/Major Diagno stic Procedure: * [...] Tobacco:: Quantity :: none. * Medications: T akingLeflunomide 20 MG Tablet 1 tablet Orally Once a day , stop date 07/26/2024Hydroxychloroquine Sulfate 200 MG Tablet 2 Orally daily , stop date 07/26/2024OCUVITE ADULT 50 PLUS 250 mg (90 mg-160 mg) capsule take 1 capsule by oral route once oral 1 , Notes to Pharmacist: *Reorder from [facility] for eRx and Interaction Alerts*Magnesium 250 MG Tablet take 1 tablet by oral route once Oral 1 Flonase Allergy Relief 50 MCG/ACT Suspension - Nasal Albuterol Sulfate HFA 108 (90 Base) MCG/ACT Aerosol Solution 2 puffs QID prn Inhalation Culturelle - daily oral , Notes to Pharmacist: *Pick strength-form from [facility] for eRX*Furosemide 20 MG Tablet take 1 tablet (20 mg) by oral route once daily Oral 1 Gabapentin 600 MG Tablet take 1 tablet (600 mg) by oral route 3 times per day Oral 3 Zolpidem Tartrate 10 MG Tablet take 1 tablet (10 mg) by oral route once daily at bedtime Oral 1 Loratadine 10 MG Tablet take 1 tablet (10 mg) by oral route once daily Oral 1 Vitamin D (Ergocalciferol) 1.25 MG (30472 UT) Capsule take 2 capsules monthly Oral Calcium Pantothenate 500 MG Tablet chew 1 tablet by oral route once Oral 1 Restasis 0.05 % Emulsion instill 1 drop into right eye by ophthalmic route every 12 hours Ophthalmic 2 Montelukast Sodium 10 MG Tablet take 1 tablet (10 mg) by oral route once daily in the evening Oral 1 Vitamin D (Ergocalciferol) 68908 UNIT Capsule Oral Symbicort 80-4.5 MCG/ACT Aerosol inhale 2 puffs by inhalation route 2 times per day in the morning and evening Inhalation 2 Melatonin 10 MG Capsule take 1 capsule by oral route once Oral 1 cyanocobalamin (vitamin B-12) 5,000 mcg capsule take 1 capsule by oral route once oral 1 , Notes to Pharmacist: *Reorder from [facility] for eRx and Interaction Alerts*valACYclovir HCl 500 MG Tablet take 2 tablets (1,000 mg) by oral route once daily Oral 1 Medication List reviewed and reconciled with the patientTaking Leflunomide 20 MG Tablet 1 tablet Orally Once a day , stop date 07/26/2024Taking Hydroxychloroquine Sulfate 200 MG Tablet 2 Orally daily , stop date 07/26/2024Taking OCUVITE ADULT 50 PLUS 250 mg (90 mg-160 mg) capsule take 1 capsule by oral route once oral 1 , Notes to Pharmacist: *Reorder from [facility] for eRx and Interaction Alerts*Taking Magnesium 250 MG Tablet take 1 tablet by oral route once Oral 1 Taking Flonase Allergy Relief 50 MCG/ACT Suspension - Nasal Taking Albuterol Sulfate HFA 108 (90 Base) MCG/ACT Aerosol Solution 2 puffs QID prn Inhalation Taking Culturelle - daily oral , Notes to Pharmacist: *Pick strength-form from [facility] for eRX*Taking Furosemide 20 MG Tablet take 1 tablet (20 mg) by oral route once daily Oral 1 Taking Gabapentin 600 MG Tablet take 1 tablet (600 mg) by oral route 3 times per day Oral 3 Taking Zolpidem Tartrate 10 MG Tablet take 1 tablet (10 mg) by oral route once daily at bedtime Oral 1 Taking Loratadine 10 MG Tablet take 1 tablet (10 mg) by oral route once daily Oral 1 Taking Vitamin D (Ergocalciferol) 1.25 MG (16513 UT) Capsule take 2 capsules monthly Oral Taking Calcium Pantothenate 500 MG Tablet chew 1 tablet by oral route once Oral 1 Taking Restasis 0.05 % Emulsion instill 1 drop into right eye by ophthalmic route every 12 hours Ophthalmic 2 Taking Montelukast Sodium 10 MG Tablet take 1 tablet (10 mg) by oral route once daily in the evening Oral 1 Taking Vitamin D (Ergocalciferol) 26535 UNIT Capsule Oral Taking Symbicort 80-4.5 MCG/ACT Aerosol inhale 2 puffs by inhalation route 2 times per day in the morning and evening Inhalation 2 Taking Melatonin 10 MG Capsule take 1 capsule by oral route once Oral 1 Taking cyanocobalamin (vitamin B-12) 5,000 mcg capsule take 1 capsule by oral route once oral 1 , Notes to Pharmacist: *Reorder from [facility] for eRx and Interaction Alerts*Taking valACYclovir HCl 500 MG Tablet take 2 tablets (1,000 mg) by oral route once daily Oral 1 Medication List reviewed and reconciled with the patient * Allergies: D emerol: Allergy - Onset Date 01/30/2009sulfaSALAzine: Allergy - Onset Date 01/03/2011Penicillins: Allergy - Onset Date 07/24/2023Sulfa Antibiotics: Allergy - Onset Date 07/19/2023iwi: Allergy - Onset Date 07/24/2023no[Allergies Verified] Objective: * Vitals: B P:130/88mm Hg, HR:78/min, Temp:98.4F, Oxygen sat %:98%, Wt:191.0lbs, Ht:63in, BMI:33.83Index. * Examination: G eneral Examination: General appearance: [...] H igh risk medication use - Z79.899 meds helping, arthritis stab le, continue arava and plaquenil, advised about eye exam, avoid TNF blockers due to hx of breast cancer, labs today, return in 3 months. Plan: * Treatment: * Procedure Codes: G 2211 Complex e/m visit add on * Follow Up: 3 Months * Billing Information: * Visit Code: 24909 Office Visit, Est Pt., Level 4. * Procedure Codes: G2211 Complex e/m visit add on. 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 Examination Category Sub-Category Detail Notes Category Not es Rheumatology no synovitis Neurology Speech: normal Psychiatry Affect / mood: appropriate General Examination General appearance: alert, w ell-nourished and in no acute distress Head: normocephalic, atrau matic Eyes: normal Lungs: respiratory effort n ormal Skin: no rash
--- OUTSIDE RECORDS SUMMARY | 2024-11-28 18:14 | XMS_ITS | Continuity of Care Document ---
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 Phone Kevyn Benton MD Unavailable Unavailable Allergies, Adverse Reactions, Alerts Substance Reaction Status Criticality Sulfa (Sulfonamide Antibiotics) Active No Information Medications Medication Instructions Dosage Effective Dates (start - stop) Status Comments RESTASIS 0.05 % EYE DROPS IN A DROPPERETTE INSTILL 1 DROP BY OPHTHALMIC ROUTE 2 TIMES EVERY DAY IN BOTH EYES 1 drop - Active ARAVA (unknown strength) take 1 tablet by oral route every day Not Available - Active Vitamin D2 50,000 unit capsule take 1 capsule by oral route every week - Active Centrum 18 mg-400 mcg tablet take 1 tablet by oral route every day with food 1.00 tablet - Active omeprazole 10 mg capsule,delayed release take 2 capsule by oral route every day before a meal 20 MG - Active albuterol sulfate 2.5 mg/3 mL (0.083 %) solution for nebulization inhale 3 milliliter by nebulization route 3 times every day 2.5 MG - Active Ambien 10 mg tablet take 1 tablet by oral route every day at bedtime 10 MG - Active anastrozole 1 mg tablet take 1 tablet by oral route every day 1 MG - Active Calcium 800 ORAL TABLET 1 tablet by mouth once a day - Active folic acid 20 mg capsule take 1 capsule by oral route every day 1 capsule - Active hydroxychloroquine 200 mg tablet take 1 tablet by oral route twice a day - Active loratadine 10 mg capsule 1 tablet once a day by mouth - Active magnesium 30 mg tablet 1 tablet by mouth once a day - Active melatonin 5 mg capsule 1 tablet at bedtime by mouth - Active montelukast 10 mg tablet take 1 tablet by oral route every day in the evening 10 MG - Active potassium 99 mg tablet take 1 tablet by oral route every day - Active Symbicort 80 mcg-4.5 mcg/actuation HFA aerosol inhaler inhale 2 puff by inhalation route 2 times every day in the morning and evening 2.00 puff - Active Vitamin B-12 100 mcg tablet 1 tablet by mouth once a day - Active valacyclovir 500 mg tablet take 1 tablet by oral route 3 times every day 500 MG - Active RESTASIS 0.05 % EYE DROPS IN A DROPPERETTE INSTILL 1 DROP BY OPHTHALMIC ROUTE 2 TIMES EVERY DAY IN BOTH EYES 1 drop - No Longer Active Restasis 0.05 % eye drops in a dropperette instill 1 drop by ophthalmic route 2 times every day in both eyes 1 drop - No Longer Active 90 day supply Procedures Procedure Date Visual Field Examination(s) Eye Exam & Treatment SCODI, Retina Refraction Office/outpatient Visit, Est Visual Field Examination(s) Eye Exam & Treatment Refraction Office/outpatient Visit, Est Visual Field Examination(s) Eye Exam & Treatment Office/outpatient Visit, Est Visual Field Examination(s) Office/outpatient Visit, Est Office/outpatient Visit, Est Eye Exam, New Patient Visual Field Examination(s) No Charge Refraction Advance Directives Directive Yes / No Effective Date File Name No Information Encounters Encounter Description Practice Location Reason(s) For Visit Diagnoses Date Provider Providers Copied on Encounter [facility], [address], [place], [place], [id number], [place] tel:[phone] SEC Anupam GOMEZ Professional No Information 9 Chetan Bagley. [address], [address], [place], [place], [address], [place]. tel:[phone] [facility], [address] [place] [address] [address], [place], [place], [address], [place] tel:[phone] SEC Anupam GOMEZ Professional No Information Apr-0 9 Chetan Bagley. [address] [facility], [facility] [address], [place], [place], [address], [place]. tel:[phone] Specialist: [place], [address] [facility] [address], [place], [address]. tel:[phone] [facility], [address] [place] [address] [address], [place], [place], [address], [place] tel:[phone] SEC Anupam GOMEZ Professional 6 month Complete (chief complaint) High risk medication useKeratoconj unctivitis siccaAge-rela jose miguel nuclear cataract, bilateralOpti c cupping of both eyes Oct-2 8 Chetan Bagley. [address] [facility], [facility] [place], [address], [place]. tel:[phone] Specialist: Elsi Torre MD, [address] [facility], [address], [place], [address]. tel:[phone] ring Provider: Cayla Angelo, [address] [facility], [place], [address]. tel:[phone] [facility], [address] [place] [address] [address], [place], [place], [address], [place] tel:[phone] SEC [facility] No Information Aug-2 8 Syd Montes. [address] [facility] [address], [place], [address], [place]. tel:[phone] Office/outpa tient Visit, Est [facility], [address] [place] [address] [address], [place], [place], [address], [place] tel:[phone] SEC Anupam GOMEZ Professional plaquenil check (chief complaint) Other exterminator helper drug therapy 8 Petey Kulkarni. [address] [place], [place], [facility], [place]. tel:[phone] Referring Provider: Cayla Angelo, [address] [place] [address], [address]. tel:[phone] [facility], [address], [place], [place], [address], [place] tel:[phone] SEC Anupam GOMEZ Professional Complete Exam (chief complaint) Other exterminator helper drug therapyAge-re lated nuclear cataract, bilateralDry eye syndrome of bilateral lacrimal glands 7 Petey Kulkarni. [address] [place], [address], [place]. tel:[phone] Referring Provider: Ari Dutta, [address] [place], [address]. tel:[phone] [facility], [address], [place], [place], [address], [place] tel:[phone] SEC [facility] No Information 7 Petey Kulkarni. [address] [place], [address], . tel:[phone] Office/outpa tient Visit, Est [facility], [address], [place], [place], [address], [place] tel:[phone] SEC Anupam GOMEZ Professional F/u exam, Plaquenil therapy (chief complaint) Other exterminator helper drug therapyPuncta te keratitis of both eyesDry eye syndrome of right lacrimal glandDry eye syndrome of left lacrimal gland Nov- 6 Mac Chapman. [address] [facility], [place], [place], [address], [place]. tel:[phone] Referring Provider: Ari Wankum A, [address], [place], [address]. tel:[phone] [facility], [address] [place] [address] [address], [place], [place], [address], tel:[phone] SEC Anupam [place] Professional F/u exam, Rheumatoid arthritis (chief complaint) No Information 6 Mac Chapman. [address], [place], [place], [address], [place]. tel:[phone] Referring Provider: Ariguido Laceyjayeshmakenna Dutta, [address], [place], [address]. tel:[phone] Office/outpa tient Visit, [facility], [address] [place] [address] [address], [place], [place], [address], tel:[phone] SEC [place] Professional Blurry vision (chief complaint) No Information 5 Mac Chapman. [address], [address] [place], [address], . tel:[phone] Referring Provider: Ari Hallmakenna Dutta, [address], [place], [address]. tel:[phone] Office/outpa tient Visit, [facility], [address] [place] [address] [address], [place], [place], [address], [place] tel:[phone] SEC [place] Professional Dry eyes (chief complaint)F /u exam, Plaquenil therapy (chief complaint) No Information 0 4 Mac Chapman. [address], [place], [place], [address], [place]. tel:[phone] Referring Provider: Ari Dutta, [address], [place], [address]. tel:[phone] Office/outpa tient Visit, [facility], [address], [place], [place], [address], tel:[phone] SEC Anupam GOMEZ Professional 2 month check after starting restasis (chief complaint) No Information 4 Abhijitingris Chapman. [address] [employer], [facility] [place], [address], . tel:[phone] Referring Provider: Ari Dutta, [address] [facility] [place], [address]. [phone] [facility], [address], [place], [place], [address], tel:[phone] SEC Anupam GOMEZ Professional irritation (chief complaint) No Information 4 Mac Chapman. [address] [employer] [address], [facility] [address], [place], [place], [address], . tel:[phone] Referring Provider: Ari Dutta, [address] [employer] [place], [address]. [phone] Family History Family Member Type Diagnosis Age At Onset Problem (finding) Family history of Stoma ch cancer Sister Problem (finding) glaucoma Problem (finding) Family history of Breas t Problem (finding) Family history of malignant neoplasm of ovary Close relative Problem (finding) hypertension Payers Payer name Insurance type Covered alliance party ID Authoriza tion(s) [facility] Commercial CI [id number] Social History Type Description Quantity Date Captured Comments Sex Female Smoking Status No Information Gender Identity Female Chief Complaint And Reason For Visit No Information Reason For Referral Reason For Referral No Information History Of Present Illness Encounter Date Complaint History Of Prese nt Illness 6 month Complete The 68 year old female presents for evaluation of 6 month Complete in the right eye and left eye. Hx of RA, NICOL OU, and mild cataracts OU. Patient still has dry eyes. Occasionally sees swirls in her [facility] which he was told that is due from migraines. Patient has had RA for 10-12 years, takes 2 pills a day, and Dr. Torre treats her RA. Patient uses Restasis BID OU. plaquenil check The 67 year old female presents for a 6 month Plaquenil check. Patient has RA. Patient uses Restasis bid ou. Patient c/o glare at night and starburst around lights. Complete Exam The 67 year old female presents for Complete Plaquenil check ou. Patient has RA. Patient uses Restasis bid ou. Patient c/o eyes are still dry. Patient c/o harder to drive at night because of halos around lights. F/u exam, Plaquenil therapy The 66 year old female presents for a 6 month Plaquenil check. Patient c/o vision isn't as good. Patient c/o harder to see TV and harder to see road signs. Patient uses Restasis bid ou. F/u exam, Rheumatoid arthritis T he 65 year old female presents for a complete Plaquenil and NICOL check ou. Patient uses Restasis bid ou. Patient denies any changes in vision ou. Blurry vision The 64 year old female presents for 6 month office visit with VF for Hydroxychloroquine. HX Cat OU and NICOL. Pt states she has had 6 short episodes of red and purple bursts and only one time had cloudy vision. Pt thinks the cloudy vision was OD only. Pt still takes two 200 mg pills of generic Plaquenil. Pt uses Restasis OU BID. Dry eyes Patient presents for a 6 month hydroxychoroquine follow up. Patient uses Restasis bid ou. Patient got new glasses a month ago and they don't seem just right. F/u exam, Plaquenil therapy Functional Status Date Functional Assessmen t No Information Medications Administered Medication Instructions Dosage Effective Dates (start - stop) Status Comments RESTASIS 0.05 % EYE DROPS IN A DROPPERETTE INSTILL 1 DROP BY OPHTHALMIC ROUTE 2 TIMES EVERY DAY IN BOTH EYES 1 drop - No Longer Active Instructions Date Instruction Additional Infor rodrigo Impression/Plan Educational material provided Re lated to Other senior living drug therapy Impression/Plan Return in 6 months w heavenly Angelo M.D. for follow up exam. Related to Other senior living drug therapy Impression/Plan - Di scussed cataracts with pt and treatment options. pt also understands at this time vision does not qualify to have CE with insurance coverage, will monitor. Related to Age-related nuclear cataract, bilateral Follow up - Return i n 6 months with Cayla Angelo M.D. for Plaquenil follow up with OCT MAC Related to Other exterminator helper drug therapy Impression/Plan - Hi story of Plaquenil use for 5 years, 200 mg BID PO. No signs of hydroxychloroquine toxicity, OK to continue medication. 10-2 Visual barnett are poor reliability, within normal range. Return to clinic in 6 months for Plaquenil check with OCT MAC or sooner with problems. Plaquenil letter sent to Dr Farzana Philippe. Related to Other senior living drug therapy Impression/Plan - Co ntinue Restasis BID OU, refills not needed at this time. Instructed patient to use refresh PM QHS OU. Related to Dry eye syndrome of bilateral lacrimal glands Other senior living drug therapy - Educational material provided Related to Other exterminator helper drug therapy Follow up - Return i n 2 months with Ari Watts M.D. for follow up exam Impression/Plan - No signs of hydroxychloroquine toxicity, OK to continue medication. Normal IOP with optic disc cupping. Stop Restasis, Start Xiidra BID OU. Called into [facility]. Use in-home humidifier during winter months for dry eyes relief. Rx for glasses given. Return to clinic in 6 months for Plaquenil check with 24-2 visual barnett or sooner with any problems. Other exterminator helper drug therapy - Educational material given Related to Other exterminator helper drug therapy Other exterminator helper drug therapy - Educational material given Related to Other senior living drug therapy Follow up - Return i n 6 months with Ari Watts M.D. for follow up exam. Impression/Plan - No signs of hydroxychloroquine toxicity, OK to continue medication. Normal visual barnett OU. Dry eyes and SPK discussed, restart Restasis BID OU. Bilateral cataracts discussed no treatment needed at this time. Return to clinic in 6 months for Plaquenil follow up or sooner with any problems. - RTC in 6 months for plaq check and VF Related to See list of assessments above - No signs of toxici ty, OK to continue medication. No treatment for cataracs recommended at this time. Discussed NICOL and the use of Restasis. RTC in 6 months for plaq check and VF. Educational materials provided:about today's exam. Medication instillation reviewed and understood. Related to See list of assessments above - 9xfux-xefman-ro hydroxychloroq uin Related to TEAR FILM INSUFFIC NOS NICOL-helped with rest asis - restasis bid Educational materials provided to patient. Related to TEAR FILM INSUFFIC NOS - RTC in [address] starting Restasis Related to See impression: general plan General plan -SENILE NUCLEAR CATARACT -TEAR FILM INSUFFIC NOS -HIGH-RISK RX NEC EXAM - Discussed plaquenil and the affects on vision. Discussed dry eyes and the use of a humidifier and ATs for relief. Rx for glasses provided to pt today. Baseline VF reviewed - no toxicity. Discussed signs of ocular migraines. Discussed using Restasis BID OU. Rx for Restasis sent to [facility]. RTC in 2 months after starting Restasis. Educational materials provided:about today's exam. Related to See impression: general plan Assessments Type Assessment Date No Information Patient Care Teams Name Effective Dates (start - stop) Status Members No Information
--- OUTSIDE RECORDS SUMMARY | 2024-11-28 18:14 | XMS_ITS ---
Author Organization [facility] Address [address] [facility] [address] [place] [address] Care Team Providers Care Dynamics Ax Technical Architect Name Role Phone Farzana Philippe MD Primary Care Provider Melecio FuentesRachelle Unavailable [phone] Allergies Allergen (clinical drug ingredient) Drug/Non Drug [...] Active Results Component Value Reference Range Notes Comprehensive metabolic pane l (CMP) Reviewed date:10/28/2024 08:30:44 AM Interpretation:Lab Result Generalized Performing Lab:[facility] , [address] [place] [address]. [facility] [address] Notes/Report: Sodium 142 135-145 mmol/L Plasma Potassium [...] 26 7-45 Units/L AST 28 10-45 Units/L REASON FOR VISIT yd/3 month follow up/flc, RA Medications Medication SIG (Take, Route, Frequency, Duration) Notes Start Date End Date Status valACYclovir HCl 500 MG take 2 tablets (1,000 mg) by oral route once daily Oral 1 Active cyanocobalamin (vitamin B-12) 5,000 mcg take 1 capsule by oral route once oral 1 *Reorder from [employer] for eRx and Interaction Alerts* Active Melatonin 10 MG take 1 capsule by oral route once Oral 1 Active Symbicort 80-4.5 MCG/ACT inhale 2 puffs by inhalation route 2 times per day in the morning and evening Inhalation 2 Active Montelukast Sodium 10 MG take 1 tablet ( 10 mg) by oral route once daily in the evening Oral 1 Active Restasis 0.05 % instill 1 drop into right eye by ophthalmic route every 12 hours Ophthalmic 2 Active Calcium Pantothenate 500 MG chew 1 tablet by oral route once Oral 1 Active Vitamin D (Ergocalciferol) 1.25 MG (17898 UT) take 2 capsules monthly Oral Active [...] Culturelle - daily oral *Pick strength-form from [employer] for eRX* Active Albuterol Sulfate HFA 108 (90 Base) MCG/ACT 2 puffs QID prn Inhalation 05/03/2010 Active Flonase Allergy Relief 50 MCG/ACT - Nasal Active Magnesium 250 MG take 1 tablet by oral route once Oral 1 Active Leflunomide 20 MG 1 tablet Orally Once a day for 90 days Active Hydroxychloroquine Sulfate 200 MG 2 Orally daily for 90 days Active OCUVITE ADULT 50 PLUS 250 mg (90 mg-160 mg) take 1 capsule by oral route once oral 1 *Reorder from [employer] for eRx and Interaction Alerts* Active Nucala 100 MG as directed Subcutaneous Active Encounters Encounter Location Date Provider Diagnosis [facility] [address] [facility] [address] [place] [address] 10/27/2024 Rachelle Fuentes Rheumatoid arthritis without rheumatoid factor, multiple sites M06.09 ; History of breast cancer Z85.3 and High risk medication use Z79.899 Assessments Encounter Date Diagnosis (ICD Code) Assessment Notes Treatment Notes Treatment Clinical Notes Section Notes 10/27/2024 Rheumatoid arthritis without rheumatoid factor, multiple [...] Orally Once a day for 90 days Hydroxychloroquine Sulfate 200 MG 2 Oral ly daily for 90 days Pending Test Test Name Order Date CBC w auto diff 10/27/2024 Next Appt Details Follow Up: 3 Months, Reason: Provider Name:Rachelle Fuentes, 01/28 10:45:00 AM, [address], [place], [address], Progress Notes * Jody KIM KDOB:[birth year] (74 yo F)Acc No.[id number]:10/27/2024 Progress Notes Patient: Jina Jody GAVIRIA Provider: Ever FUENTES MD :1950 A ge:74 Y S ex:Female Date:10/27/2024 Address:[address] [place] [address] , [facility] Pcp:Farzana Philippe MD Subjective: * Chief Complaints: [...] History: * Surgical History: H ysterectomy: 1983; 3896-74-90Qbpd surgery; 3010-71-04Vmazw removal: right; 1960-87-66uyzl stripping; 8595-28-20nrlxajb lobectomy, Date of Procedure: 1992; 5390-32-94Wpd Surgery; 4051-38-88Cete surgery; 0467-79-60Tjrp Ligation; 5003-98-49Zenyyxrlku, left breast; 4963-20-72dmlxwaeupjiai; 2023-07-24 * Hospitalization/Major Diagno stic Procedure: * [...] Tobacco:: Quantity :: none. * Medications: T akingNucala 100 MG Solution Reconstituted as directed Subcutaneous OCUVITE ADULT 50 PLUS 250 mg (90 mg-160 mg) capsule take 1 capsule by oral route once oral 1 , Notes to Pharmacist: *Reorder from [employer] for eRx and Interaction Alerts*Magnesium 250 MG Tablet take 1 tablet by oral route once Oral 1 Flonase Allergy Relief 50 MCG/ACT Suspension - Nasal Albuterol Sulfate HFA 108 (90 Base) MCG/ACT Aerosol Solution 2 puffs QID prn Inhalation Culturelle - daily oral , Notes to Pharmacist: *Pick strength-form from [facility] for eRX*Gabapentin 600 MG Tablet take 1 tablet (600 mg) by oral route 3 times per day Oral 3 Zolpidem Tartrate 10 MG Tablet take 1 tablet (10 mg) by oral route once daily at bedtime Oral 1 Loratadine 10 MG Tablet take 1 tablet (10 mg) by oral route once daily Oral 1 Vitamin D (Ergocalciferol) 1.25 MG (06890 UT) Capsule take 2 capsules monthly Oral [...] 1 , Notes to Pharmacist: *Reorder from [facility] for eRx and Interaction Alerts*valACYclovir HCl 500 MG Tablet take 2 tablets (1,000 mg) by oral route once daily Oral 1 Hydroxychloroquine Sulfate 200 MG Tablet 2 Orally daily , stop date 10/28/2024Leflunomide 20 MG Tablet 1 tablet Orally Once a day , stop date 10/28/2024Taking Nucala 100 MG Solution Reconstituted as directed Subcutaneous Taking OCUVITE ADULT 50 PLUS 250 mg (90 mg-160 mg) capsule take 1 capsule by oral route once oral 1 , Notes to Pharmacist: *Reorder from [facility] for eRx and Interaction Alerts*Taking Magnesium 250 MG Tablet take 1 tablet by oral route once Oral 1 Taking Flonase Allergy Relief 50 MCG/ACT Suspension - Nasal Taking Albuterol Sulfate HFA 108 (90 Base) MCG/ACT Aerosol Solution 2 puffs QID prn Inhalation Taking Culturelle - daily oral , Notes to Pharmacist: *Pick strength-form from [facility] for eRX*Taking Gabapentin 600 MG Tablet take 1 tablet (600 mg) by oral route 3 times per day Oral 3 Taking Zolpidem Tartrate 10 MG Tablet take 1 tablet (10 mg) by oral route once daily at bedtime Oral 1 Taking Loratadine 10 MG Tablet take 1 tablet (10 mg) by oral route once daily Oral 1 Taking Vitamin D (Ergocalciferol) 1.25 MG (69744 UT) Capsule take 2 capsules monthly Oral [...] 1 , Notes to Pharmacist: *Reorder from [facility] for eRx and Interaction Alerts*Taking valACYclovir HCl 500 MG Tablet take 2 tablets (1,000 mg) by oral route once daily Oral 1 Taking Hydroxychloroquine Sulfate 200 MG Tablet 2 Orally daily , stop date 10/28/2024Taking Leflunomide 20 MG Tablet 1 tablet Orally Once a day , stop date 10/28/2024 * Allergies: D emerol: Allergy - Onset Date 01/30/2009sulfaSALAzine: Allergy - Onset Date 01/03/2011Penicillins: Allergy - Onset Date 07/24/2023Sulfa Antibiotics: Allergy - Onset Date 07/19/2023iwi: Allergy - Onset Date 07/24/2023no[Allergies Verified] Objective: * Vitals: * Examination: G eneral Examination: General appearance: [...] risk medication use - Z79.899 clinically stable, refill ar manasa and plaquenil, labs today, return in 3 months Plan: * Treatment: * Procedure Codes: G 2211 Complex e/m visit add on * Follow Up: 3 Months * Billing Information: * Visit Code: 50422 Office Visit, Est Pt., Level 4. * Procedure Codes: G2211 Complex e/m visit add on. Images * PatientLetter 10/28/2024 08: 30:45 * SLATOR DEAF Sign off status: Completed true * Provider: Ever FUENTES MD Date: 0 10/27/2024 Generated for Sung kendall/Aroldo/Nargisitting on: 0 11/28/2024 06:14 PM TRANSLATOR DEAF History and Physical Notes * HPI (History [...]
--- OUTSIDE RECORDS SUMMARY | 2024-11-28 18:14 | XMS_ITS ---
Author Organization [facility] Address [address] [place] [address] Care Team Providers Care [employer] Senior Sergeant Name Role Phone Farzana Philippe MD Primary Care Provider Ashlyn Prince MD Unavailable [phone] Lesa CHARLES MD, Hang Dorsey Unavailable + Yonny Whitehead MD Unavailable Eric Lopez MD Unavailable Active Problems Problem Noted Date Diagnosed Date Ringing in ears, bilateral 06/29/2024 Sensorineural hearing loss (SNHL) of both ears 0 06/29/2024 Assessment & Plan (06/30/2024 11:19 AM CDT): Mild to moderate hearing loss, protect hearing Mass of upper inner quadrant of left breast 12/05 Chronic bilateral low back pain with bilateral s ciatica 12/11/2021 Assessment & Plan (12/11/2021 9:08 AM COURTESY BUS DRIVER): Worse Sees pain management Increase gabapentin Edema 06/15/2021 Assessment & Plan (12/11/2021 9:06 AM COURTESY BUS DRIVER): Chronic worse Left greater than right Restart furosemide BMP from 11/28 stable Elevate legs Compression hose Assessment & Plan (06/15/2021 5:32 PM CDT): Uncontrolled worse Furosemide 40mg for seven days Elevate legs Will contact the office in 7 days with update Labs 06/06/21 stable Moderate persistent asthma without complication 03/22/2021 Assessment & Plan (08/06/2022 2:43 PM CDT): Long discussion with patient about repetitive cycle related to allergens in flare of asthma bronchitis Will place on Astelin along with Flonase in addition to her current singular and Claritin 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 Most likely it is nonischemic, but will obtain a stress echocardiogram and echo Doppler to fully assess prior to her upcoming surgery. 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 She has done pt. Vitamin D deficiency 01/30/2018 Assessment & Plan (01/30/2018 3:40 PM CDT): Pt reports trouble w/ balance. Is currently on Vit D supplementation. Will check a Vit D level today Personal history of breast cancer 07/12/2017 High risk medications (not anticoagulants) long- term use 04/30/2017 Assessment & Plan (05/01/2018 11:45 AM CDT): Will continue to monitor the patient with routine labs. Assessment & Plan (01/30/2018 3:45 PM CDT): Will continue to monitor w/ routine labs Family history of malignant neoplasm of ovary Overview (01/09/2017): Family history of ovarian cancer Family history of malignant neoplasm of breast 0 02/20/2014 Overview (01/10/2017): Family history of breast cancer Extrinsic asthma 09/23/2013 Overview (01/11/2017): EXTRINSIC ASTHMA NOS Assessment & Plan (07/08/2020 12:41 PM CDT): Worse prednisone Assessment & Plan (10/08/2019 10:05 AM COURTESY BUS DRIVER): Stable aggravated at night when lying down. Malignant neoplasm of upper- inner quadrant of right breast in female, estrogen receptor negative 02/10/2013 Overview (01/10/2017): MAL JOEY BREAST UP-INNER Rheumatoid arthritis involving multiple sites (C MS/HCC) 02/10/2013 Overview (02/04/2018): +RF, CCP, ALIN neg HLA-B27 neg hepatitis 07/22 AVISE: 01/2018 = +ccp, ALIN, RF, anti-phosphatidylserine Assessment & Plan (05/01/2018 11:44 AM CDT): AVISE testing with positive ALNI, RF and CCP. Patient disease activity is moderate. Due to burden of disease will give patient a triamcinolone injection. Patient made aware of SE of triamcinolone injection including but not limited to HTN, increase blood glucose and osteopenia with fci use 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 Patient is to continue HCQ and ARAVA. In the past has had cough and abnormal cxr with MTX. She also has a hx of fatty liver. Avoiding biologics as she has a hx of breast cancer. Patient is allergic to sulfa drugs. Will check routine labs today. Assessment & Plan (01/30/2018 3:48 PM CDT): Patient disease activity is moderate on HCQ bid and ARAVA 20 mg once daily. She reports no pain in her hands. She has some swelling on exam. Patient is to continue current regimen. We are being conservative in her regimen d/t her history of malignancy. Will check routine labs today. We will also recheck an AVISE to evaluate for a change in her serologies. Follow up in 3 mo, sooner if needed. Pt seen w/ Dr. Torre Assessment & Plan (10/21/2017 1:58 PM COURTESY BUS DRIVER): cdai = 21 on plaquenil and leflunomide. Had influenza in September and held leflunomide. Infection resolved and joints are hurting worse. Will give 100mg triamcinolone IM today due to burden of disease. Recheck labs today. Labs reviewed from 07/23 normal. off mtx due to cough/abnormal cxr and fatty liver. tramadol to use prn pain. F/u 3 months. Assessment & Plan (07/25/2017 2:05 PM CDT): cdai = 17 Flared when holding meds for shingles vaccine. Now back on plaquenil and leflunomide. We also gave her a 2 week prednisone taper which helped. She is having neck and shoulder pain. Labs reviewed from 07/23 normal. off mtx due to cough/abnormal cxr and fatty liver. tramadol to use prn pain. Discussed trying PT for her neck/shoulder pain. Keep f/u 2 months or sooner if worse. Assessment & Plan (06/28/2017 4:09 PM CDT): cdai = 18 At the last visit she was flaring and we administered 100mg triamcinolone IM and she felt better for a while. Now she has been off her meds for 3 weeks so she could get shingles vaccine, which was done today. She can resume plaquenil. Advised to wait at least 2-3 weeks to restart leflunomide. Would also avoid steroids today, but if not feeling better in a few weeks can call for script of prednisone. ff mtx due to cough/abnormal cxr and fatty liver. Lab order given, do in about 1 month. F/u 2-3 months or sooner if needed. Will give tramadol to use prn pain. Assessment & Plan (04/30/2017 4:17 PM CDT): cdai = 24 She appears to be having a flare today. Will give 100mg triamcinolone IM as this helped her a great deal in the past. Continue leflunomide with plaquenil for now. Had recent labs per pcp that I reviewed. Cbc, cmp were ok. She had an elevated d- dimer and slightly elevated bnp. Has had increased leg swelling recently. Had neg venous dopplers for dvts. On lasix. Advised to f/u with pcp since she states her legs are still swollen. Off mtx due to cough/abnormal cxr and fatty liver. F/u 1 month. Current Treatment and Therapy Plans No current plan information found. 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 EKG NSR- RBBB present in 2019 Right calf pain 12/11/2021 10/27/2024 Assessment & Plan (12/11/2021 9:09 AM COURTESY BUS DRIVER): New Pinpoint in left calf mid leg- medial Venous doppler today evaluate for DVT No finding- address edema and varicose veins Acute sinusitis 10/08/2019 03/22/2021 Assessment & Plan (07/08/2020 12:41 PM CDT): Rest, fluids antibiotics Assessment & Plan (10/08/2019 10:07 AM COURTESY BUS DRIVER): Rest fluids start Augmentin Flonase [id number] We discussed referral to allergy for control of allergic rhinitis Cellulitis 06/02/2019 10/08/2019 Allergic reaction 06/02/2019 06/04/2019 Acute right-sided low back p ain without sciatica 05/13/2019 03/22/2021 Assessment & Plan (05/13/2019 3:41 PM CDT): Differential diagnosis includes but not limited to degenerative disc disease; compression fracture; facet arthropathy; strain; muscle spasm; SI joint dysfunction. Rest, no lifting, flexeri, aleve Hold prednisone unless symptoms are worse Exercises given to pt and reviewed. Bronchitis 03/19/2019 04/03/2023 Assessment & Plan (08/06/2022 2:43 PM CDT): Stop Augmentin as patient has a rash although symptoms are better Place on a Z-Michele Resume Medrol Dosepak as she has coarse wheezes throughout a bronchial breath sounds Ongoing use of albuterol and LABA Assessment & Plan (07/08/2020 12:42 PM CDT): Rest fluids antibiotics. Assessment & Plan (03/19/2019 4:04 PM CDT): Patient with poor response to medications from urgent care she has a history of lingering bronchitis with airway inflammation. Will place patient on Augmentin at this time at Benzonate capsules she will continue her Symbicort and her albuterol inhaler resume again on prednisone 20 mg if no response she will increase to 40 mg tablet a day she is to call us in 4 days with an update on her status. She will resume Flonase Astelin and her ongoing antihistamine and Singulair for rhinitis and postnasal drip. Sinus congestion 10/14/2018 11/19/2018 Cough 10/14/2018 11/19/2018 Assessment & Plan (10/14/2018 1:14 PM COURTESY BUS DRIVER): Check for pneumonia-cxr good lung sounds. + pnd Tessalon perles, continue inhalers, add astelin for PND, flonase if not improved. Bilateral shoulder pain 04/14/201811/07 Routine medical exam 11/18/2017 019 Personal history of fall, pr esenting hazards to health 11/18/2017 11/19/2018 Gait abnormality 11/18/2017 11/19/2018 Assessment & Plan (01/30/2018 3:46 PM CDT): Pt reports occasional falls. Has been told in the past that she might have a discrepancy in her leg length. Will give her a referral for physical therapy for evaluation and recommendation. Acute pain of both shoulders 07/25/2017 11/19/2018 Assessment & Plan (10/14/2018 1:14 PM COURTESY BUS DRIVER): Try 100mg gabapentin during the day , 300 at night for pain Continue with pain management. Assessment & Plan (10/21/2017 2:01 PM COURTESY BUS DRIVER): bilat shoulder and neck pain. Suspect degenerative arthritis and/or rotator cuff pathology. Was improving with PT but now hurting more since she had influenza and had to hold leflunomide. Advised to resume home PT exercises. If not improving may order imaging. Assessment & Plan (07/25/2017 2:00 PM CDT): bilat shoulder and neck pain. Suspect degenerative arthritis and/or rotator cuff pathology. Will try physical therapy first. If not improving will check xrays. Localized edema 04/25/2017 11/19/2018 Assessment & Plan (04/25/2017 11:58 AM CDT): Differential diagnosis includes side eect of medications, dependent edema, renal function issues, liver function abnormalities, thyroid disease, congestive heart failure, or blood clots. Will check renal function liver function thyroid function check BNP to look for heart failure and check D-dimer to rule out clot. If her kidney function is normal will start Lasix tomorrow. Monitor potassium follow a low- salt diet and make sure to drink plenty of fluids she is not on any anti- inflammatories at the present time discussed that this possibly could be a side effect of Arava but this is not a high incidence side effect. Fatigue 04/25/2017 11/19/2018 Assessment & Plan (04/25/2017 11:59 AM CDT): May be related to her increased edema or her medications must check for anemia and liver function since she is on Arava and Plaquenil. BMI 35.0-35.9,adult 04/25/2017 03/22/20 21 Assessment & Plan (07/08/2020 12:40 PM CDT): BMI Follow-up includes: education provided. Assessment & Plan (10/08/2019 10:04 AM COURTESY BUS DRIVER): BMI Follow-up includes: education provided. Assessment & Plan (06/02/2019 4:39 PM CDT): BMI Follow-up includes: education provided. Assessment & Plan (05/13/2019 3:38 PM CDT): BMI Follow-up includes: education provided. Assessment & Plan (03/19/2019 4:03 PM CDT): BMI Follow-up includes: education provided. Assessment & Plan (10/14/2018 1:11 PM COURTESY BUS DRIVER): BMI Follow-up includes: education provided. Assessment & Plan (10/02/2018 8:36 AM COURTESY BUS DRIVER): BMI Follow-up includes: education provided. Assessment & Plan (04/25/2017 11:59 AM CDT): Follow low-fat low-salt diet try to gradually increase exercise Screening for condition 04/25/201711/07 Assessment & Plan (04/25/2017 11:56 AM CDT): No falls Localized swelling of both lower legs 04/25/2017 03/22/2021 Assessment & Plan (04/16/2019 2:36 PM CDT): Mild edema in the setting of varicose veins, most likely venous insufficiency. Echo Doppler will assess this. Herpes zoster without complication 03/15/2017 11/19/2018 Assessment & Plan (03/15/2017 11:54 AM CDT): Patient was taking 500 mg of valacyclovir twice a day. She will fill no prescription increased to 1 g 3 times a day for 7 days. She will call the office if he has further problem Pain of foot 01/22/2017 11/19/2018 Bacterial upper respiratory infection 10/15/2016 03/15/2017 Overview (01/11/2017): Bacterial upper respiratory infection Wheezing 10/15/2016 03/15/2017 Overview (01/11/2017): Wheezing Malignant neoplasm of breast 01/25/2014 11/19/2018 Overview (01/10/2017): Breast cancer
[2024-11-28 18:15] VITALS: BP 110/93; PULSE 113; RESP 20; TEMP 36.4; O2SAT 100
--- OUTSIDE RECORDS SUMMARY | 2024-11-28 18:15 | XMS_ITS | Clinical Summary ---
Author Organization [facility] Address [address] [place] [address] Care Team Providers Care Pharmacognosy Teacher Name Role Phone Torito Albrecht MD Unavailable Aleida Forde MD Primary Care Provider Source Comments [facility],non-owned Affiliates and Associated Physician Practices is amultiple site organization consisting of ambulatory clinics and hospital sitesin [place], [place], [place] and [place]. This disclosure is being madepursuant to the Care Everywhere program and may not contain all information available regarding this patient. Last updated 18.[facility] Allergies Active Allergy Reactions Criticality Noted Date Comments Sulfa Drugs 07/06/2013 Medications * Be aware that medications may not be up to date on this document. Alwaysverify current medications with the patient. Medication Sig Dispensed Refills Start Date End Date Status fluticasone-salmeter ol (ADVAIR DISKUS) 100-50 MCG/DOSE inhalerIndications:N ontraumatic rupture of quadriceps tendon,Osteoarthrosi s, unspecified whether generalized or localized, lower leg Inhale 1 Puff by mouth 2 times daily. Active zolpidem CR (AMBIEN CR) 12.5 MG tabletIndications:No ntraumatic rupture of quadriceps tendon,Osteoarthrosi s, unspecified whether generalized or localized, lower leg Take 12.5 mg by mouth nightly as needed. Active B Complex CAPSIndications:Nont raumatic rupture of quadriceps tendon,Osteoarthrosi s, unspecified whether generalized or localized, lower leg Take by mouth. Active Calcium Carbonate (CALCIUM 500 PO)Indications:Nontr aumatic rupture of quadriceps tendon,Osteoarthrosi s, unspecified whether generalized or localized, lower leg Take by mouth. Active Calcium Carbonate-Vitamin D (CALCIUM 600-D PO)Indications:Nontr aumatic rupture of quadriceps tendon,Osteoarthrosi s, unspecified whether generalized or localized, lower leg Take by mouth. Active calcium 200 MG tabletIndications:No ntraumatic rupture of quadriceps tendon,Osteoarthrosi s, unspecified whether generalized or localized, lower leg Take 200 mg by mouth once daily. Active doxycycline (VIBRAMYCIN) 100 MG capsuleIndications:N ontraumatic rupture of quadriceps tendon,Osteoarthrosi s, unspecified whether generalized or localized, lower leg Take 100 mg by mouth every 12 hours. Active [place]-3 Fatty Acids (FISH OIL) 500 MG CAPSIndications:Nont raumatic rupture of quadriceps tendon,Osteoarthrosi s, unspecified whether generalized or localized, lower leg Take by mouth. Active glucosamine 500 MG CAPS capsuleIndications:N ontraumatic rupture of quadriceps tendon,Osteoarthrosi s, unspecified whether generalized or localized, lower leg Take 1 Cap by mouth once daily. Active Loratadine 10 MG CAPSIndications:Nont raumatic rupture of quadriceps tendon,Osteoarthrosi s, unspecified whether generalized or localized, lower leg Take by mouth. Active hydroxychloroquine (PLAQUENIL) 200 MG tabletIndications:No ntraumatic rupture of quadriceps tendon,Osteoarthrosi s, unspecified whether generalized or localized, lower leg Take by mouth once daily. Active POTASSIUM POIndications:Nontra umatic rupture of quadriceps tendon,Osteoarthrosi s, unspecified whether generalized or localized, lower leg Take by mouth. Active albuterol HFA (PROAIR HFA) 108 (90 BASE) MCG/ACT inhalerIndications:N ontraumatic rupture of quadriceps tendon,Osteoarthrosi s, unspecified whether generalized or localized, lower leg Inhale 2 Puffs by mouth every 6 hours as needed. Active montelukast (SINGULAIR) 10 MG tabletIndications:No ntraumatic rupture of quadriceps tendon,Osteoarthrosi s, unspecified whether generalized or localized, lower leg Take 10 mg by mouth at bedtime. Active B Complex-C (SUPER B COMPLEX/VITAMIN C PO)Indications:Nontr aumatic rupture of quadriceps tendon,Osteoarthrosi s, unspecified whether generalized or localized, lower leg Take by mouth. Active Vitamin D3 (CHOLECALCIFEROL) 2000 UNITS CAPS capsuleIndications:N ontraumatic rupture of quadriceps tendon,Osteoarthrosi s, unspecified whether generalized or localized, lower leg Take 2,000 Units by mouth once daily. Active Ergocalciferol (VITAMIN D2) 2000 UNITS TABSIndications:Nont raumatic rupture of quadriceps tendon,Osteoarthrosi s, unspecified whether generalized or localized, lower leg Take by mouth. Active budesonide-formotero l (SYMBICORT) 80-4.5 MCG/ACT inhaler Inhale 2 puffs by mouth 2 times daily Active omeprazole (PRILOSEC) 20 MG capsule Take 20 mg by mouth daily before breakfast Active anastrozole (ARIMIDEX) 1 MG tablet Take 1 mg by mouth once daily Active fosamprenavir (LEXIVA) 700 MG tablet Take 700 mg by mouth once daily Active HYDROcodone-acetamin ophen (NORCO) 5-325 MG tablet Take 1 tablet by mouth every 6 hours as needed for Pain 25 tablet 12/17/2019 Active Active Problems Problem Noted Date Diagnosed [...] Mass Index 34.28 12/17/2019 11:41 AM CDT Plan of Treatment Health Maintenance Due Date Last Done Comments BONE DENSITY TESTING 1950 COLOGUARD (AGES 45-75) - COLON CA SCREENING 1950 COLON MONITORING 1950 COLONOSCOPY - COLON CA SCREENING 1950 CT COLONOGRAPHY - COLON CA SCREENING 1950 Colorectal Cancer Screening 1950 FIT - COLON CA SCREENING 1950 FLEX SIG - COLON CA SCREENING 1950 LIPID TESTING 1950 MAMMOGRAM 1950 HEPATITIS C SCREENING 06/21/1968 DTAP/TDAP/TD VACCINES (1 - Tdap) 1969 PNEUMOCOCCAL VACCINE 50+ (1 of 1 - PCV) 2000 ZOSTER VACCINE (1 of 2) 2000 COVID-19 VACCINE (1 - season) 2024 INFLUENZA VACCINE (#1) 2024 9, 07/12/2018, 06/28/2017, Additional history exists DEPRESSION SCREENING 10/07/2024 Respiratory Syncytial Virus (RSV) Vaccine Pt: or over 60 yrs (1 - 1-dose 75+ series) 2025 HEPATITIS B VACCINE Aged Out No longe r eligible based on patient's age to complete this topic HIB VACCINE Aged Out No longer eligi ble based on patient's age to complete this topic HPV VACCINE Aged Out No longer eligi ble based on patient's age to complete this topic MENINGOCOCCAL (Group B) VACCINE Aged Out No longer eligible based on patient's age to complete this topic MENINGOCOCCAL VACCINE Aged Out No samanta jami eligible based on patient's age to complete this topic Care Teams Pharmacognosy Teacher Relationship Specialty Start Date End Date Aleida Forde MD [address] [id number] PCP - General 05/11/21 Torito Albrecht MD Orthopedic Surgery 07/06/13
--- OUTSIDE RECORDS SUMMARY | 2024-11-28 18:15 | XMS_ITS | Clinical Summary ---
Author Organization [facility], formerly [facility] Address [address] [place] [address] Care Team Providers Care Commercial Real Estate Associate Name Role Phone Farzana Philippe MD Primary Care Provider Ashlyn Prince MD Unavailable [phone] Lesa CHARLES MD, Hang Dorsey Unavailable + Yonny Whitehead MD Unavailable Eric Peck MD Unavailable Allergies Active Allergy Reactions Criticality Noted Date Comments Amoxicillin-Pot Clavulanate Rash Medium 08/06/2022 Kiwi Shortness of breath High 11/17/2020 Meperidine Unknown 01/30/2009 Sulfa (Sulfonamide Antibiotics) Itching Low Reaction: Itching, , , , Reaction: Itching, , , Sulfanilamide Itching Low Reaction: Itching, , Reaction: Itching, Sulfasalazine Unknown 01/03/2011 Medications cjdsstua-cjr-yyo n-FA-lutein (CENTRUM SILVER WOMEN) 8 mg iron-400 mcg-300 mcg tablet 0 0 10/24/19 16 Active melatonin 5 mg capsule 5 mg. 0 0 10/24/19 16 Active cycloSPORINE (RESTASIS) 0.05 % ophthalmic emulsion instill 1 drop by ophthalmic route every 12 hours into affected eye(s) 0 0 02/22/20 15 Active loratadine 10 mg capsule Take by mouth daily. Active calcium carbonate (CALCIUM 600 ORAL) Take by mouth Active vitamin b complex tablet Take 1 tablet by mouth daily Active magnesium oxide (MAG-OX) 250 mg (150.8 mg elemental) tablet Take 1 tablet (250 mg total) by mouth daily Active hydroxychloroqui ne (PLAQUENIL) 200 mg tablet Take 1 tablet (200 mg total) by mouth daily 90 tablet 3 11/08/19 24 Active leflunomide (ARAVA) 20 mg tabletIndication s:Rheumatoid Arthritis Take 1 tablet (20 mg total) by mouth daily 100 tablet 1 02/26/20 24 025 Active albuterol 2.5 mg /3 mL (0.083 %) nebulizer solutionIndicati ons:Moderate persistent chronic asthma without complication Take 3 mL (2.5 mg total) by nebulization 4 (four) times a day as needed for wheezing or shortness of breath 150 mL 04/13/20 24 025 Active Comp-Air Nebulizer Compressor device USE WITH NEBULIZER SOLUTION DIRECTED J45.909 04/13/20 24 Active fluticasone-umec lidin-vilanter (Trelegy Ellipta) 100-62.5-25 mcg inhaler Inhale 1 puff daily 60 each 11 07/22/20 24 Active mepolizumab (Nucala) 100 mg/mL auto-injector Inject 1 mL (100 mg total) under the skin every 4 (four) weeks 1 mL 11 09/02/20 24 Active UNABLE TO FIND Take 6 each by mouth daily Med Name: Balance of nature Active gabapentin (NEURONTIN) 600 mg tabletIndication s: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,Chr onic bilateral low back pain with bilateral sciatica Take 1 tablet (600 mg total) by mouth daily 90 tablet 3 10/27/19 25 Active ergocalciferol (Vitamin D2) 50,000 unit capsule Take 1 capsule (50,000 Units total) by mouth every 2 (two) weeks 6 capsule 2 10/27/19 25 Active omeprazole (PriLOSEC) 20 mg capsule Take 2 capsules (40 mg total) by mouth daily 180 capsule 2 10/27/19 25 Active valACYclovir (VALTREX) 500 mg tablet Take 1 tablet (500 mg total) by mouth 2 (two) times a day as needed (cold sores) 60 tablet 2 10/27/19 25 Active albuterol HFA (ProAir HFA) 90 mcg/actuation inhaler Inhale 2 puffs every 4 (four) hours as needed for wheezing or shortness of breath 3 each 3 10/27/19 25 Active montelukast (SINGULAIR) 10 mg tablet Take 1 tablet (10 mg total) by mouth nightly 90 tablet 3 11/06/19 25 Active zolpidem (AMBIEN) 10 mg tabletIndication s:Sleep-Onset Insomnia Take 1 tablet (10 mg total) by mouth nightly as needed for sleep 90 tablet 11/07/19 25 025 Active montelukast (SINGULAIR) 10 mg tablet Take 1 tablet (10 mg total) by mouth nightly 90 tablet 3 11/08/19 24 025 Discontin ued(Reord er) zolpidem (AMBIEN) 10 mg tabletIndication s:Sleep-Onset Insomnia Take 1 tablet (10 mg total) by mouth nightly as needed for sleep 90 tablet 10/27/19 25 025 Discontin ued(Reord er) Hospital, Clinic, or Other Facility Administered Medication Ordered Dose Route Frequency Start Date End Date Status ipratropium-albuteroL (DUO-NEB) 0.5-2.5 mg/3 mL nebulizer solution 3 mLIndications:Chronic Obstructive Pulmonary Disease with Bronchospasms 3 mL nebu Once (respiratory therapy director) 06/27/2023 Activ e Active Problems Problem Noted Date Diagnosed Date Ringing in ears, bilateral 06/29/2024 Sensorineural hearing loss (SNHL) of both ears 0 06/29/2024 Assessment & Plan (06/30/2024 11:19 AM CDT): Mild to moderate hearing loss, protect hearing Mass of upper inner quadrant of left breast 12/05 Chronic bilateral low back pain with bilateral s ciatica 12/11/2021 Assessment & Plan (12/11/2021 9:08 AM COMPUTER GAME DESIGNER): Worse Sees pain management Increase gabapentin Edema 06/15/2021 Assessment & Plan (12/11/2021 9:06 AM COMPUTER GAME DESIGNER): Chronic worse Left greater than right Restart [...] 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 [...] 11:44 AM CDT): AVISE testing with positive ALIN, RF and CCP. Patient disease activity is moderate. Due to burden of disease will give patient a triamcinolone injection. Patient made aware of SE of triamcinolone injection including but not limited to HTN, increase blood glucose and osteopenia with long term acute care registered nurse use 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 Patient is to continue [...] Torre Assessment & Plan (10/21/2017 1:58 PM COMPUTER GAME DESIGNER): cdai = 21 on plaquenil and leflunomide. [...] cxr and fatty liver. F/u 1 month. Resolved Problems Problem Noted Date Diagnosed Date Resolved Date Chest pain 05/29/2022 04/03/2023 Assessment & Plan (05/29/2022 10:01 AM CDT): Substernal chest pain- radiating to left one episode lasted 5 minutes She has hx of palpiations her furnace charger has retired- Dr. 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 EKG NSR- RBBB present in 2019 Right calf pain 12/11/2021 10/27/2024 Assessment & Plan (12/11/2021 9:09 AM COMPUTER GAME DESIGNER): New Pinpoint in left calf mid leg- medial Venous doppler today evaluate for DVT No finding- address edema and varicose veins Acute sinusitis 10/08/2019 03/22/2021 Assessment & Plan (07/08/2020 12:41 PM CDT): Rest, fluids antibiotics Assessment & Plan (10/08/2019 10:07 AM COMPUTER GAME DESIGNER): Rest fluids start Augmentin Flonase [id number] We discussed referral to allergy for control [...] 11/19/2018 Assessment & Plan (10/14/2018 1:14 PM COMPUTER GAME DESIGNER): Check for pneumonia-cxr good lung sounds. + [...] 11/19/2018 Assessment & Plan (10/14/2018 1:14 PM COMPUTER GAME DESIGNER): Try 100mg gabapentin during the day , 300 at night for pain Continue with pain management. Assessment & Plan (10/21/2017 2:01 PM COMPUTER GAME DESIGNER): bilat shoulder and neck pain. Suspect degenerative [...] provided. Assessment & Plan (10/08/2019 10:04 AM COMPUTER GAME DESIGNER): BMI Follow-up includes: education provided. Assessment & Plan (06/02/2019 4:39 PM CDT): BMI Follow-up includes: education provided. Assessment & Plan (05/13/2019 3:38 PM CDT): BMI Follow-up includes: education provided. Assessment & Plan (03/19/2019 4:03 PM CDT): BMI Follow-up includes: education provided. Assessment & Plan (10/14/2018 1:11 PM COMPUTER GAME DESIGNER): BMI Follow-up includes: education provided. Assessment & Plan (10/02/2018 8:36 AM COMPUTER GAME DESIGNER): BMI Follow-up includes: education provided. Assessment & [...] breast 01/25/2014 11/19/2018 Overview (01/10/2017): Breast cancer Encounters Date Type Department Care Team Description 11/12/2024 Telephone [facility] Pulmonary at [address] [place] [address] Mary Paz LPN Nucala 10/27/2024 1:52 PM COMPUTER GAME DESIGNER - 10/27/2024 11:59 PM COMPUTER GAME DESIGNER Hospital Encounter [address] [phone] Discharge Disposition: Discharge to home or self care 10/27/2024 1:00 PM COMPUTER GAME DESIGNER Lab [facility] [address] [place] [phone] 10/27/2024 11:30 AM COMPUTER GAME DESIGNER Office Visit [facility] Primary Care at [address] [phone] Farzana Philippe MD Bony abnormality (Primary Dx); Rheumatoid arthritis involving multiple sites, unspecified whether rheumatoid factor present (HCC); Vitamin D deficiency; Moderate persistent asthma without complication; History of breast cancer; Bony sclerosis; 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; Chronic bilateral low back pain with bilateral sciatica 09/18/2024 9:30 AM COMPUTER GAME DESIGNER Clinical Support [facility] Pulmonary at [address] [place] [phone] Carson Arora MD 09/14/2024 Telephone [facility] Pulmonary at [address] [phone] Isabelle Parada LPN 09/08/2024 Telephone [facility] Diabetes Endocrine Care at [address] [phone] Monica Strickland DO 09/02/2024 Orders Only [facility] Pulmonary at [address] [place] [phone] Isabelle Parada LPN 09/02/2024 Telephone [facility] Pulmonary at [address] [phone] Isabelle Parada LPN Prior Auth; nucala from Last 3 Months Immunizations Immunization Administration Dates Next Due Influenza, Quad, Adjuvantate d, Intramuscular 10/01/2021 Influenza, Quadrivalent, Hig h Dose, Preservative Free, Intrr 08/06/2022 Influenza, Quadrivalent, Spl it, Preservative Free, Intramuscular 11/07/2023,06/28/2017,07/21/2015 Influenza, Split 08/08/2015 Influenza, Trivalent, High D ose, Split, Preservative Free, Intramuscular 08/17/2019,07/12/2018,08/22/2016 Influenza, Trivalent, IM (MDV) 07/09/2016,2014 Influenza, Trivalent, Preser vative Free, Intramuscular 11/19/2012,07/25/2011 Influenza, Trivalent, Split, Preservative Free, Intradermal 07/07/2014 Influenza, Unspecified 07/13/2021,2020(Deferred: Patient Refused),08/17/2019,06/28/2017 Moderna SARS-CoV-2 Monovalen t Vaccination (12+ YRS) 10/01/2021,12/17/2020,11/19/2020 Pneumococcal Conjugate PCV 13 07/12/2018, 015 Pneumococcal Polysaccharide PPV23 2018,11/14/2016,07/07/2015,09/24 RSV Vaccine, Pref, Recombina nt, Subunit, Adjuvanted, PF, IM (Arexvy) 11/11/2023 Tdap 07/12/2018,05/25/2010 ZOSTER LIVE 06/28/2017 ZOSTER Recombinant 09/11/2022,03/01/2022 Surgical History Surgery Date Site/Laterality Comments TOTAL ABDOMINAL HYSTERECTOMY W/ BILATERAL SALPINGOOPHORECTOMY Hysterectomy, total abdominal, BSO OTHER SURGICAL HISTORY Cancer, breast: chemo and rt TOTAL ABDOMINAL HYSTERECTOMY Hysterectomy, total OTHER SURGICAL HISTORY 10/07/2011 - 10/06/2012 Left Cancer, breast: lumpectomy, XRT, Arimidex BREAST BIOPSY OOPHORECTOMY Right OTHER SURGICAL HISTORY EXCISION BONE CYST/TUMOR FOOT/ANKLE SIGMOIDECTOMY diverticulitis BREAST LUMPECTOMY 10/07/2011 - 10/06/2012 Left Breast Cancer Medical History Medical History Date Comments Hx Other Medical sinus surgery Hx Other Medical vein stripping Hx Other Medical bilateral foot surgery Hx Other Medical miscarriage Hx Other Medical sigmoidectomy Hx Other Medical arm fx Hx Other Medical 2012 lump in breast Hx Other Medical 2008 sigmoidectomy Arthritis Arthritis Asthma Asthma; Comments : FREDY 08/30/2014 - Malignant neoplasm of female breast (HCC) Cancer, breast; Comments: FREDY 08/30/2014 - Hx Other Medical rheumatoid arth ritis; Comments: FREDY 08/30/2014 - Hx Other Medical thyroid lumpect coral; Comments: FREDY 08/30/2014 - Malignant neoplasm of female breast (HCC) 2012 Cancer, breast; Laterality: left Malignant neoplasm of female breast (HCC) Cancer, breast; Comments: [facility] 10/24/2015 - Rheumatoid arthritis (HCC) RA; C omments: [facility] 10/24/2015 - Osteopenia Osteopenia; Comm ents: [facility] 10/24/2015 - Tear film insufficiency Dry eyes ; Comments: [facility] 10/24/2015 - Disorder of liver Liver disease Hx Other Medical Glaucoma Hx Other Medical Intestinal Coli tis Gastric reflux Hiatal hernia Kidney stone Osteoarthritis Breast CA (HCC) Rbbb Diverticulitis S/P thyroid surgery 1992 lobectomy History of radiation therapy 2012 Lef t Breast Cancer History of chemotherapy 2012 Left Geri ast Cancer GERD (gastroesophageal reflux disease) Dysphagia Cataract Family History Medical History Relation Name Comments Breast cancer Cousin Cancer, breast ; Cancer Father Cancer, unknown ; Esophageal cancer Father Cancer, es ophageal; Other Father Cancer - stomac h; Lung cancer Father's Sister Cancer, lung ; Breast cancer Maternal Grandmother Cancer , breast; Cancer Mother Cancer, unknown ; Ovarian cancer Mother Cancer, ovari an; /Cancer, ovarian; Breast cancer Mother's Sister Cancer, geri ast; Asthma Other 1 Family history of Asthma; Ovarian cancer Other 2 Family histor y of Cancer -ovarian; Coronary artery disease Other 3 Fami ly history of Coronary artery disease; Other Other 4 Family history of Descent: [place]; Other Other 5 Family history of Descent: ; Other Other 6 Family history of Cancer, brain; Breast cancer Other 7 Family history of Cancer, breast; Other Other 8 Family history of Cancer, esophageal; Ovarian cancer Other 9 Family histor y of Cancer, ovarian; Leukemia Paternal Grandfather Leukemi a; Ovarian cancer Sister 2 Cancer, ovari an; Ovarian cancer Sister 3 #1 Cancer, ovari an; Ovarian cancer Sister 4 #2 Cancer, ovari an; Brain cancer Sister 5 Cancer, brain; Relation Name Status Comments Cousin Father Father's Sister Maternal Grandmother Mother Alive Mother's Sister Other 1 Other 2 Other 3 Other 4 Other 5 Other 6 Other 7 Other 8 Other 9 Paternal Grandfather Sister 1 Alive Sister 2 Sister 3 #1 Sister 4 #2 Sister 5 Social History Tobacco Use Types Packs/Day Years Used Date Smoking Tobacco: Never Smokeless Tobacco: Never Tobacco Cessation:Counseling Given: Not Answered Alcohol Use Standard Drinks/Week Comments No 0 (1 standard drink = 0.6 oz pur e alcohol) AUDIT-C Answer Date Recorded Q1: How often do you have a drink containing alc ohol? Never 08/07/2021 Average Number of Drinks Not on file 021 Q3: How often do you have si x or more drinks on one occasion? Never 08/07/2021 PHQ-2 Answer Date Recorded PHQ-2 Total Score (If total score is 3 or more points, staff should administer the PHQ-9) 0 04/13/2024 Personal Safety Answer Date Recorded Have you ever been in or are you currently in a harmful physical or emotional relationship or is someone making you feel afraid or unsafe? Denies 08/20/2024 Comments No Sex and Gender Information Value Date Recorded Sex Assigned at Not on file Legal Sex Female 1:20 PM COMPUTER GAME DESIGNER Gender Identity Not on file Sexual Orientation Not on file Obstetrics History Para Term AB IAB SAB Ectopic Multiple Livin g Live Births 3 3 3 3 3 Date Outcome GA Total Labor Labor/2nd/3rd Weight Sex Type Anes PTL Joanie A1 A5 Name Clin SAB SAB SAB Last Filed Vital Signs Vital Sign Reading Time Taken Comments Blood Pressure 128/88 10/27/2024 11:11 AM COMPUTER GAME DESIGNER Pulse 80 10/27/2024 11:11 AM COMPUTER GAME DESIGNER Temperature 36.5 C (97.7 F) 09/18/2024 9:27 AM COMPUTER GAME DESIGNER Respiratory Rate 18 10/27/2024 11:11 AM COMPUTER GAME DESIGNER Oxygen Saturation 99% 10/27/2024 11:11 AM COMPUTER GAME DESIGNER Inhaled Oxygen Concentration - - Weight 84.4 kg (186 lb) 10/27/2024 11:11 AM COMPUTER GAME DESIGNER Height 160 cm (5' 2.99 ) 10/27/2024 11:11 AM COMPUTER GAME DESIGNER Body Mass Index 32.96 10/27/2024 11:11 AM COMPUTER GAME DESIGNER Plan of Treatment Health Maintenance Due Date Last Done Comments Hepatitis B Screening 1968 Covid-19 Vaccine (2023-2 5 season) 2024 09/11/2022, 10/01/2021, 12/17/2020, Additional history exists Influenza Vaccine (#1) 2024 , 08/06/2022, 10/01/2021, Additional history exists Osteoporosis Screening-Bone Density Scan 11/20/2024 11/20/2022, 03/17/2021, 04/15/2019, Additional history exists Breast Cancer Screening-Mammogram 12/23/2024 12/24/2023, 03/22/2023, 02/23/2022, Additional history exists Depression Screening 04/13/2025 04/13/2024, 04/03/2023, 08/06/2022, Additional history exists Well Visit 65+ 04/13/2025 04/13/2024, 03/08, 04/02/2022, Additional history exists Fall Risk Assessment 08/20/2025 08/20/2024, 04/13/2024, 04/03/2023, Additional history exists Colon Cancer Screening-Colonoscopy 08/07/2026 08/07/2021, 07/16/2016 DTaP/Tdap/Td Vaccine (3 - Td or Tdap) 07/12/2028 07/12/2018, 05/25/2010 Hepatitis C Screening Completed 07/10/2016 Pneumococcal vaccine 65+ Completed 019, 07/12/2018, 11/14/2016, Additional history exists Colon Cancer Screening-CT Colonography Discontinued 08/07/2021, 07/16/2016 Colon Cancer Screening-DNA Stool Discontinued 08/07/20, 07/16/2016 Colon Cancer Screening-FIT Discontinued 08/07/2021, Colon Cancer Screening-Sigmoidoscopy Discontinued 08/07/2021, 07/16/2016 Zoster Vaccine Completed 09/11/2022, 02/05, 06/28/2017 Procedures Procedure Name Priority Date/Time Associated Diagnosis Comments EGFR Routine 10/27/2024 1:04 PM COMPUTER GAME DESIGNER COMPREHENSIVE METABOLIC PANEL Routine 10/27/2024 1:04 PM COMPUTER GAME DESIGNER EGFR Routine 10/27/2024 11:51 AM COMPUTER GAME DESIGNER Rheumatoid arthritis involving multiple sites, unspecified whether rheumatoid factor present (HCC) Moderate persistent asthma without complication DIFFERENTIAL AUTO Routine 10/27/2024 11: 51 AM COMPUTER GAME DESIGNER Rheumatoid arthritis involving multiple sites, unspecified whether rheumatoid factor present (HCC) Moderate persistent asthma without complication VITAMIN D 25 HYDROXY Routine 10/27/2024 11:51 AM COMPUTER GAME DESIGNER Vitamin D deficiency CBC WITH AUTO DIFFERENTIAL Routine 10/27/2024 11:51 AM COMPUTER GAME DESIGNER Rheumatoid arthritis involving multiple sites, unspecified whether rheumatoid factor present (HCC) Moderate persistent asthma without complication COMPREHENSIVE METABOLIC PANEL Routine 10/27/2024 11:51 AM COMPUTER GAME DESIGNER Rheumatoid arthritis involving multiple sites, unspecified whether rheumatoid factor present (HCC) Moderate persistent asthma without complication DIAGNOSTIC MAMMOGRAM BILATERAL W DAREK Schedule DHRUV, Read DHRUV (Appt Today, Awaiting Results) 12/24/2023 8:24 AM CDT BRCA1 gene mutation positive Personal history of breast cancer DEXA AXIAL SKELETON BONE DENSITY 1 OR MORE SITES Schedule Routine, Read Routine (OP Routine) 11/20/2022 10:30 AM COMPUTER GAME DESIGNER Malignant neoplasm of upper-inner quadrant of right breast in female, estrogen receptor negative (CMS/HCC) (HCC) BRCA1 gene mutation positive COLONOSCOPY 08/07/2021 12:32 PM CDT SERUM HEPATITIS C AB Routine 07/10/2016 4:26 PM CDT from Last 3 Months or Most Recently Relevant to Health Maintenance Results * eGFR (10/27/2024 1:04 PM COMPUTER GAME DESIGNER) eGFR >90 >=60 mL/min/1. 73 m2 Comment: Interpretive Data Reference Interval Normal >/= 90 [...] Current interpretive data was last reviewed 2021. Blood 10/27/2024 1:04 PM COMPUTER GAME DESIGNER 10/27/2024 3:35 PM COMPUTER GAME DESIGNER us Rachelle Jay MD LAB BLOOD ORDERABLES Final Resul t Performing Organization Address [facility]/ZIP Co de Phone Number [facility] [address] Department [place] [address] * Comprehensive metabolic panel (10/27/2024 1:04 PM COMPUTER GAME DESIGNER) Sodium 142 135 - 145 mmol/L Potassium, pl 4.4 3.3 - 4.9 mmol/L [facility] Chloride 104 97 - 110 mmol/L [facility] CO2 30 22 - 32 mmol/L [facility] Anion gap 8 2 - 15 mmol/L [facility] BUN 12 6 - 25 mg/dL [facility] Creatinine 0.65 0.60 - 1.10 mg/dL [facility] Glucose 98 70 - 199 mg/dL [facility] Comment: Interpretive Data Fasting glucose >/= 126 mg/dl [...] Current interpretive data was last revised 2022. Calcium 9.3 8.5 - 10.3 mg/dL [facility] Bilirubin, total 0.3 0.1 - 1.2 mg/dL [facility] Protein, pl 6.7 6.5 - 8.5 g/dL [facility] Albumin 4.1 3.5 - 5.0 g/dL [facility] Alk phos 116 40 - 130 Units/L [facility] ALT 26 7 - 45 Units/L [facility] AST 28 10 - 45 Units/L [facility] Blood 10/27/2024 1:04 PM COMPUTER GAME DESIGNER 10/27/2024 3:35 PM COMPUTER GAME DESIGNER Rachelle Jay MD LAB BLOOD ORDERABLES Final Resul t Performing Organization Address [facility]/ZIP Co de Phone Number [facility] [address] Department [place] [address] * eGFR (10/27/2024 11:51 AM COMPUTER GAME DESIGNER) eGFR 89 >=60 mL/min/1. 73 m2 Comment: Interpretive Data Reference Interval Normal >/= 90 [...] Current interpretive data was last reviewed 2021. Blood 10/27/2024 11:5 1 AM COMPUTER GAME DESIGNER 10/27/2024 3:42 PM COMPUTER GAME DESIGNER us Farzana Philpipe MD LAB BLOOD ORDERABLES Final Result [facility] [address] Department [place] [address] * Differential, auto (10/27/2024 11:51 AM COMPUTER GAME DESIGNER) Pathologist [facility] Neutrophil abs 3.2 1.5 - 6.5 K/cumm Imm gran abs 0.0 0.0 - 0.1 K/cumm [facility] Lymphocyte abs 1.1 0.8 - 3.3 K/cumm [facility] Monocyte abs 0.6 0.2 - 0.8 K/cumm [facility] Eosinophil abs 0.0 0.0 - 0.5 K/cumm [facility] Basophil abs 0.0 0.0 - 0.1 K/cumm [facility] Neutrophil pct 65.2 % [facility] Comment: Interpretive Data Percent cell count reference ranges are not reported, since discordance with absolute values may lead to misinterpretation of CBC data. Current Interpretive Data was last revised on 2018. Imm gran pct 0.2 % [facility] Comment: Interpretive Data Percent cell count reference ranges are not reported, since discordance with absolute values may lead to misinterpretation of CBC data. Current Interpretive Data was last revised on 2018. Lymphocyte pct 21.6 % [facility] Comment: Interpretive Data Percent cell count reference ranges are not reported, since discordance with absolute values may lead to misinterpretation of CBC data. Current Interpretive Data was last revised on 2018. Monocyte pct 11.6 % [facility] Comment: Interpretive Data Percent cell count reference ranges are not reported, since discordance with absolute values may lead to misinterpretation of CBC data. Current Interpretive Data was last revised on 2018. Eosinophil pct 0.8 % [facility] Comment: Interpretive Data Percent cell count reference ranges are not reported, since discordance with absolute values may lead to misinterpretation of CBC data. Current Interpretive Data was last revised on 2018. Basophil pct 0.6 % [facility] Comment: Interpretive Data Percent cell count reference ranges are not reported, since discordance with absolute values may lead to misinterpretation of CBC data. Current Interpretive Data was last revised on 2018. Blood 10/27/2024 11:5 1 AM COMPUTER GAME DESIGNER 10/27/2024 3:42 PM COMPUTER GAME DESIGNER us Farzana Philippe MD LAB BLOOD ORDERABLES Final Result [facility] [address] Department [place] [address] * (ABNORMAL) CBC with auto differential (10/27/2024 11:51 AM COMPUTER GAME DESIGNER) WBC 4.9 3.8 - 9.9 K/cumm Hgb 13.9 11.9 - 15.5 g/dL [facility] Hct 44.1 35.6 - 45.5 % [facility] Plt 199 150 - 400 K/cumm [facility] MPV 10.7 9.1 - 12.3 fL [facility] RBC 4.50 3.90 - 5.20 M/cumm [facility] MCV 98.0(H) 81.3 - 96.4 fL [facility] MCH 30.9 27.1 - 33.3 pg [facility] MCHC 31.5(L) 32.3 - 35.7 g/dL [facility] RDW CV 13.4 11.1 - 14.9 % [facility] RDW SD 48.8(H) 35.7 - 48.1 fL [facility] NRBC abs 0.00 0.00 - 0.01 K/cumm [facility] Blood 10/27/2024 11:5 1 AM COMPUTER GAME DESIGNER 10/27/2024 3:42 PM COMPUTER GAME DESIGNER Farzana Philippe MD LAB BLOOD ORDERABLES Final Result Performing Organization Address [facility]/ZIP Co de Phone Number [facility] [address] [place] [place] [address] * Vitamin D 25 hydroxy (10/27/2024 11:51 AM COMPUTER GAME DESIGNER) [facility] Vitamin D 25-OH 55 30 - 80 ng/mL Blood 10/27/2024 11:5 1 AM COMPUTER GAME DESIGNER 10/27/2024 3:42 PM COMPUTER GAME DESIGNER Farzana Philippe MD LAB BLOOD ORDERABLES Final Result Performing Organization Address City/[facility]/ZIP Co de Phone Number [facility] [address] [place] [place] [address] * Comprehensive metabolic panel (10/27/2024 11:51 AM COMPUTER GAME DESIGNER) [facility] Sodium 143 135 - 145 mmol/L Potassium, pl 4.4 3.3 - 4.9 mmol/L [facility] Chloride 105 97 - 110 mmol/L [facility] CO2 29 22 - 32 mmol/L [facility] Anion gap 9 2 - 15 mmol/L [facility] BUN 11 6 - 25 mg/dL [facility] Creatinine 0.71 0.60 - 1.10 mg/dL [facility] Glucose 91 70 - 199 mg/dL [facility] Comment: Interpretive Data Fasting glucose >/= 126 mg/dl [...] Current interpretive data was last revised 2022. Calcium 9.4 8.5 - 10.3 mg/dL [facility] Bilirubin, total 0.3 0.1 - 1.2 mg/dL [facility] Protein, pl 6.9 6.5 - 8.5 g/dL [facility] Albumin 4.1 3.5 - 5.0 g/dL [facility] Alk phos 114 40 - 130 Units/L [facility] ALT 24 7 - 45 Units/L [facility] AST 28 10 - 45 Units/L [facility] Blood 10/27/2024 11:5 1 AM COMPUTER GAME DESIGNER 10/27/2024 3:42 PM COMPUTER GAME DESIGNER us Farzana Philippe MD LAB BLOOD ORDERABLES Final Result Performing Organization Address City/State/[facility] Co de Phone Number [facility] [address] Department [place] [address] * Diagnostic Mammogram Bilateral W Darek (12/24/2023 8:24 AM CDT) Anatomical Region Laterality Modality Breast Bilateral Mammography 12/24/2023 9:13 AM CDT Impressions 12/24/2023 9:13 AM CDT 1. The palpable lump of concern in the left breast corresponds to a 5.1 cm cystic mass with circumscribed margins at the 11 o'clock position 15 cm from the nipple. The patient reports she first felt this 2 years after her surgery, which was performed in 2011. Imaging features are most consistent with a benign seroma or hematoma. No additional specific workup is required for this finding. 2. There are no new suspicious findings in either breast on mammogram. Continued monthly breast self-examination is recommended, and annual bilateral screening mammography in 12 months. BI-RADS: 2 - Benign. I discussed the findings and recommendations with the patient at time of the examination. Electronically signed by: BUSTER Pandey 12/24/2023 9:13 AM CDT EXAMINATION: DIAGNOSTIC MAMMOGRAM BILATERAL W DAREK, US BREAST LEFT LIMITED ORDERING HEALTHCARE PROVIDER: ERIC PECK HISTORY: 73-year-old woman with personal history of left breast cancer status post breast conservation therapy in 2011. She comes in today for evaluation of an area of palpable concern and tenderness near the lumpectomy site. COMPARISON: 03/22/2023, 02/23/2022, 02/22/2021. TECHNIQUE: CC and MLO views of both breasts were obtained with digital technique using digital breast tomosynthesis with C view. Computer aided detection was utilized. Targeted sonographic examination of the left breast was performed real-time grayscale images and color Doppler. FINDINGS: MAMMOGRAPHIC FINDINGS: There is scattered fibroglandular tissue. A triangular marker was placed on the left breast over the area of palpable concern. This is located in the upper inner aspect of the left breast at posterior depth. Stable Postoperative changes of previous lumpectomy are seen in the vicinity of the marker, but no new suspicious findings are identified. Overall, there are no new suspicious findings in either breast on mammogram. A few benign microcalcifications are unchanged, including vascular calcifications. SONOGRAPHIC FINDINGS: Targeted sonographic examination of the left breast is performed by both the electromechanical inspector and myself. At the level of palpable concern, located at the 11 o'clock position 15 cm from the nipple, in close proximity to the lumpectomy site, is an oval anechoic mass with circumscribed margins that is wider than taller and measures 5.1 x 2.7 x 4.3. There is posterior acoustic enhancement, and no internal blood flow seen on color Doppler. On real-time examination the imaging features are most consistent with a benign hematoma or seroma. us Eric Peck MD IMG MAMMO PROCEDURES Final Result * Dexa Axial Skeleton Bone Density 1 or 2 Site (11/20/2022 10:30 AM COMPUTER GAME DESIGNER) Anatomical Region Laterality Modality Body N/A Digital Radiogra phy 11/20/2022 10:3 5 AM COMPUTER GAME DESIGNER Impressions 11/20/2022 10:35 AM COMPUTER GAME DESIGNER Low bone mass (osteopenia) which depending on the clinical circumstances may result in a moderate increased risk of fragility fracture. If followup is to be done, for technical reasons, it should be performed on this same machine. Electronically signed by: Joe Flnanery M.D. Narrative 11/20/2022 10:35 AM COMPUTER GAME DESIGNER EXAM: Bone mineral density examination HISTORY: Osteopenia. Postmenopausal.. DXA BMD was done at [facility] on a [employer] W. Precision testing at this site is not yet available. BMD L1-L4 is 0.888 g/sq cm corresponding to a T score of -1.4. BMD left femoral neck is 0.612 g/sq cm corresponding to a T score of -2.1. BMD total left hip is 0.776 g/sq cm corresponding to a T score of -1.4. The 10-year fracture risk for major osteoporotic fracture: Not calculated. The 10-year fracture risk for hip fracture: Not calculated. COMPARISON: Comparison with the prior study is not entirely valid as it was done on a completely different machine. Procedure Note Joe Flannery MD - 11/20/2022 EXAM: Bone mineral density examination HISTORY: Osteopenia. Postmenopausal.. DXA BMD was done at [facility] on a [employer] Horizon W. Precision testing at this site is not yet available. BMD L1-L4 is 0.888 g/sq cm corresponding to a T score of -1.4. BMD left femoral neck is 0.612 g/sq cm corresponding to a T score of -2.1. BMD total left hip is 0.776 g/sq cm corresponding to a T score of -1.4. The 10-year fracture risk for major osteoporotic fracture: Not calculated. The 10-year fracture risk for hip fracture: Not calculated. COMPARISON: Comparison with the prior study is not entirely valid as it was done on a completely different machine. IMPRESSION: Low bone mass (osteopenia) which depending on the clinical circumstances may result in a moderate increased risk of fragility fracture. If followup is to be done, for technical reasons, it should be performed on this same machine. Electronically signed by: Joe Flannery M.D. us Yonny Ventura ZULETA IM DXA PROCEDURES Final Result * COLONOSCOPY (08/07/2021 12:32 PM CDT) Anatomical Region Laterality Modality Other Narrative Procedure Note Clifton Garcia MD - 08/07/2021 12:32 PM CDT ENDOSCOPY LAB Patient Name: Jody Kim Procedure Date: 08/07/2021 12:32 PM Admit Type: Outpatient Room: [facility] Date of : 1950 Instrument Name: [id number] Gender: Female Note Status: Finalized Procedure: Colonoscopy Indications: High risk colon cancer surveillance: Personalhistory of colonic polyps, Last colonoscopy: 2015 Providers: Clifton Garcia M.D. Referring MD: Farzana Philippe M.D. Medicines: Propofol per Anesthesia Complications: No immediate complications. Estimated Blood Loss: Estimated blood loss was minimal. Procedure: Pre-Anesthesia Assessment: - Prior to the procedure, a History and Physicalwas performed, and patient medications and allergieswere reviewed. The patient is competent. The risks and benefits of the procedure and the sedation optionsand risks were discussed with the patient. Allquestions were answered and informed consent was obtained. Patient identification and proposed procedure were verified by the physician, the nurse and the anesthesiologist in the pre-procedure area. Mental Status Examination: alert and oriented. Airway Examination: normal oropharyngeal airway and neck mobility. Respiratory Examination: clear to auscultation. CV Examination: normal. ASA Grade Assessment: II - A patient with mild systemicdisease. After reviewing the risks and benefits, the patient was deemed in satisfactory condition to undergo the procedure. The anesthesia plan was to use monitored anesthesia care (MAC). Immediately prior to administration of medications, the patient was re-assessed for adequacy to receive sedatives. The heart rate, respiratory rate, oxygen saturations, blood pressure, adequacy of pulmonary ventilation,and response to care were monitored throughout the procedure. The physical status of the patient was re-assessed after the procedure. - The risks and benefits of the procedure and the sedation options and risks were discussed with the patient. All questions were answered and informed consent was obtained. The benefits, risks and alternatives of theprocedure and sedation were discussed and informed consentwas obtained. All questions were answered. Please referto the signed informed consent document in the medical record. The scope was passed under direct vision.The Colonoscope was introduced through the anus and advanced to the the cecum, identified byappendiceal orifice and ileocecal valve. The colonoscopy was performed without difficulty. The patient tolerated the procedure well. The quality of the bowel preparation was evaluated using the BBPS (BostonBowel Preparation Scale) with scores of: Right Colon = 3, Transverse Colon = 3 and Left Colon = 3 (entiremucosa seen well with no residual staining, smallfragments of stool or opaque liquid). The total BBPS score equals 9. The bowel preparation used was sutab via split dose instruction. Findings: The terminal ileum appeared normal. A 2 mm polyp was found in the transverse colon. The polyp wassessile. The exam was otherwise without abnormality. Impression: - The examined portion of the ileum was normal. - One 2 mm polyp in the transverse colon. - The examination was otherwise normal. - No specimens collected. Recommendation: - Discharge patient to home. - Await pathology results. - Repeat colonoscopy in 5 years for surveillance. - Continue present medications. Attending Participation: I personally performed the entire procedure. Electronically signed by Clifton Garcia MD Clifton Garcia M.D. 08/07/2021 1:42:05 PM Number of Addenda: 0 Note Initiated On: 08/07/2021 12:32 PM Scope In: Scope Out: Clifton Garcia MD ENDOSCOPY PROCEDURES Final Re sult * Serum Hepatitis C ab (07/10/2016 4:26 PM CDT) HCV ab Negative Negative CDR HISTOR ICAL RESULTS Comment:Test performed at [facility], [address] [place] [address], [place], [place]., [facility] Serum 07/10/2016 4:26 PM CDT us Historical Provider LAB BLOOD ORDERABLES Gina mcfarlane Result CDR HISTORICAL RESULTS from Last 3 Months or Most Recently Relevant to Health Maintenance Insurance MEDICARE [facility] [place] [address] [facility] [employer] [facility] H[facility]/PPO Address: [address] [address] [place] [address] MEDICARE [facility] MEDICARE [facility] [place] [address] Advance Directives For more information, please contact: [phone] * Full Code (Latest Code Status on File) Date Activated Date Inactivated Comments 08/07/2021 11:37 AM 08/07/2021 6:34 PM Care Teams Commercial Real Estate Associate Relationship Specialty Start Date End Date Farzana Philippe MD [address] [place] [address] PCP - General 01/04/17 Ashlyn Prince MD [address] [place] [address] Obstetrics and Gynecology 07/15/17 Hang Mcfadden III, MD [address] [place] [address] Radiation Oncology 07/15/17 Yonny Whitehead MD [address] [place] [address] Medical Oncologist/Owner Operator Hematology 05/13/20 Eric Peck MD [address] [place] [address] Consulting Physician Surgical Oncology 12/18/23
--- OUTSIDE RECORDS SUMMARY | 2024-11-28 18:15 | XMS_ITS | Referral Summary ---
Author Organization [facility] Address [address] [place] [address] Care Team Providers Care Near [place] Archeology Professor Name Role Phone Torito Albrecht MD Unavailable [phone] Aleida Forde MD Primary Care Provider [phone] Source Comments [facility],non-owned Affiliates and Associated Physician Practices is amultiple site organization consisting of ambulatory clinics and hospital sitesin [place], [place], [place] and [place]. This disclosure is being madepursuant to the Care Everywhere program and may not contain all information available regarding this patient. Last updated 18.[facility] Allergies Active Allergy Reactions Criticality Noted Date [...] mg by mouth every 12 hours. Active [place]-3 Fatty Acids (FISH OIL) 500 MG CAPSIndications:Nont [...] 12/17/2019 11:41 AM CDT Plan of Treatment Not on file Care Teams Near [place] Archeology Professor Relationship Specialty Start Date End Date Aleida Forde MD [address] [facility] [address] [place] [id number] PCP - General 05/11/21 Torito Albrecht MD Orthopedic Surgery 07/06/13
--- OUTSIDE RECORDS SUMMARY | 2024-11-28 18:15 | XMS_ITS | Referral Summary ---
Author Organization [facility] Address [address] [place] [address] Care Team Providers Care Ultrasound Technologist Name Role Phone Farzana Philippe MD Primary Care Provider Ashlyn Prince MD Unavailable Lesa CHARLES MD, Hang Dorsey Unavailable + Yonny Whitehead MD Unavailable Eric Peck MD Unavailable Encounters Date Type Department Care Team Description 11/12/2024 Telephone [facility] Pulmonary at [address] [place] [phone] Mary Paz LPN Nucala 10/27/2024 1:52 PM CLINICAL ACADEMIC ALLERGIST - 10/27/2024 11:59 PM CLINICAL ACADEMIC ALLERGIST Hospital Encounter [facility] [address] [place] [address] Discharge Disposition: Discharge to home or self care 10/27/2024 1:00 PM CLINICAL ACADEMIC ALLERGIST Lab [place] [id number] [place] [address] 10/27/2024 11:30 AM CLINICAL ACADEMIC ALLERGIST Office Visit [facility] Primary Care at [address] [phone] Farzana Philippe MD Bony abnormality (Primary Dx); Rheumatoid arthritis involving multiple sites, unspecified whether rheumatoid factor present (HCC); Vitamin D deficiency; Moderate persistent asthma without complication; History of breast cancer; Bony sclerosis; 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; Chronic bilateral low back pain with bilateral sciatica 09/18/2024 9:30 AM CLINICAL ACADEMIC ALLERGIST Clinical Support [facility] Pulmonary at [address] [phone] Carson Arora MD 09/14/2024 Telephone [facility] Pulmonary at [address] [phone] Isabelle Paarda LPN 09/08/2024 Telephone [facility] Diabetes Endocrine Care at [address] [phone] Monica Strickland DO 09/02/2024 Orders Only [facility] Pulmonary at [address] [phone] Isabelle Parada LPN 09/02/2024 Telephone [facility] Pulmonary at [address] [phone] Isabelle Parada LPN Prior Auth; nucala from Last 3 Months Allergies Active Allergy Reactions Criticality Noted Date Comments Amoxicillin-Pot Clavulanate Rash Medium 08/06/2022 Kiwi Shortness of breath High 11/17/2020 Meperidine Unknown 01/30/2009 Sulfa (Sulfonamide Antibiotics) Itching Low Reaction: Itching, , , , Reaction: Itching, , , Sulfanilamide Itching Low Reaction: Itching, , Reaction: Itching, Sulfasalazine Unknown 01/03/2011 Medications [id number] n-FA-lutein (CENTRUM SILVER WOMEN) 8 mg iron-400 [...] with Bronchospasms 3 mL nebu 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) 06/27/2023 Activ e Active Problems Problem Noted Date Diagnosed Date Ringing in ears, bilateral 06/29/2024 Sensorineural hearing loss (SNHL) of both ears 0 06/29/2024 Assessment & Plan (06/30/2024 11:19 AM CDT): Mild to moderate hearing loss, protect hearing Mass of upper inner quadrant of left breast 12/05 Chronic bilateral low back pain with bilateral s ciatica 12/11/2021 Assessment & Plan (12/11/2021 9:08 AM CLINICAL ACADEMIC ALLERGIST): Worse Sees pain management Increase gabapentin Edema 06/15/2021 Assessment & Plan (12/11/2021 9:06 AM CLINICAL ACADEMIC ALLERGIST): Chronic worse Left greater than right Restart [...] is to wear mask when raking leaves assisted (current) use of aromatase inhibitors 11/28/2020 Localized [...] 2017 Assessment & Plan (12/11/2021 9:07 AM CLINICAL ACADEMIC ALLERGIST): Worse Increase gabapentin to tid 600mg Continue [...] prednisone Assessment & Plan (10/08/2019 10:05 AM CLINICAL ACADEMIC ALLERGIST): Stable aggravated at night when lying down. [...] Torre Assessment & Plan (10/21/2017 1:58 PM CLINICAL ACADEMIC ALLERGIST): cdai = 21 on plaquenil and leflunomide. 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 EKG NSR- RBBB present in 2019 Right calf pain 12/11/2021 10/27/2024 Assessment & Plan (12/11/2021 9:09 AM CLINICAL ACADEMIC ALLERGIST): New Pinpoint in left calf mid leg- medial Venous doppler today evaluate for DVT No finding- address edema and varicose veins Acute sinusitis 10/08/2019 03/22/2021 Assessment & Plan (07/08/2020 12:41 PM CDT): Rest, fluids antibiotics Assessment & Plan (10/08/2019 10:07 AM CLINICAL ACADEMIC ALLERGIST): Rest fluids start Augmentin Flonase witz-lur-thiysfe We discussed referral to allergy for control [...] 11/19/2018 Assessment & Plan (10/14/2018 1:14 PM CLINICAL ACADEMIC ALLERGIST): Check for pneumonia-cxr good lung sounds. + [...] 11/19/2018 Assessment & Plan (10/14/2018 1:14 PM CLINICAL ACADEMIC ALLERGIST): Try 100mg gabapentin during the day , 300 at night for pain Continue with pain management. Assessment & Plan (10/21/2017 2:01 PM CLINICAL ACADEMIC ALLERGIST): bilat shoulder and neck pain. Suspect degenerative [...] provided. Assessment & Plan (10/08/2019 10:04 AM CLINICAL ACADEMIC ALLERGIST): BMI Follow-up includes: education provided. Assessment & Plan (06/02/2019 4:39 PM CDT): BMI Follow-up includes: education provided. Assessment & Plan (05/13/2019 3:38 PM CDT): BMI Follow-up includes: education provided. Assessment & Plan (03/19/2019 4:03 PM CDT): BMI Follow-up includes: education provided. Assessment & Plan (10/14/2018 1:11 PM CLINICAL ACADEMIC ALLERGIST): BMI Follow-up includes: education provided. Assessment & Plan (10/02/2018 8:36 AM CLINICAL ACADEMIC ALLERGIST): BMI Follow-up includes: education provided. Assessment & [...] breast 01/25/2014 11/19/2018 Overview (01/10/2017): Breast cancer Immunizations Immunization Administration Dates Next Due Influenza, [...] 07/12/2018,05/25/2010 ZOSTER LIVE 06/28/2017 ZOSTER Recombinant 09/11/2022,03/01/2022 Social History Tobacco Use Types Packs/Day Years [...] on file Legal Sex Female 1:20 PM CLINICAL ACADEMIC ALLERGIST Gender Identity Not on file Sexual Orientation Not on file Last Filed Vital Signs Vital Sign Reading Time Taken Comments Blood Pressure 128/88 10/27/2024 11:11 AM CLINICAL ACADEMIC ALLERGIST Pulse 80 10/27/2024 11:11 AM CLINICAL ACADEMIC ALLERGIST Temperature 36.5 C (97.7 F) 09/18/2024 9:27 AM CLINICAL ACADEMIC ALLERGIST Respiratory Rate 18 10/27/2024 11:11 AM CLINICAL ACADEMIC ALLERGIST Oxygen Saturation 99% 10/27/2024 11:11 AM CLINICAL ACADEMIC ALLERGIST Inhaled Oxygen Concentration - - Weight 84.4 kg (186 lb) 10/27/2024 11:11 AM CLINICAL ACADEMIC ALLERGIST Height 160 cm (5' 2.99 ) 10/27/2024 11:11 AM CLINICAL ACADEMIC ALLERGIST Body Mass Index 32.96 10/27/2024 11:11 AM CLINICAL ACADEMIC ALLERGIST Plan of Treatment Not on file Procedures Procedure Name Priority Date/Time Associated Diagnosis Comments EGFR Routine 10/27/2024 1:04 PM CLINICAL ACADEMIC ALLERGIST COMPREHENSIVE METABOLIC PANEL Routine 10/27/2024 1:04 PM CLINICAL ACADEMIC ALLERGIST EGFR Routine 10/27/2024 11:51 AM CLINICAL ACADEMIC ALLERGIST Rheumatoid arthritis involving multiple sites, unspecified whether rheumatoid factor present (HCC) Moderate persistent asthma without complication DIFFERENTIAL AUTO Routine 10/27/2024 11: 51 AM CLINICAL ACADEMIC ALLERGIST Rheumatoid arthritis involving multiple sites, unspecified whether rheumatoid factor present (HCC) Moderate persistent asthma without complication VITAMIN D 25 HYDROXY Routine 10/27/2024 11:51 AM CLINICAL ACADEMIC ALLERGIST Vitamin D deficiency CBC WITH AUTO DIFFERENTIAL Routine 10/27/2024 11:51 AM CLINICAL ACADEMIC ALLERGIST Rheumatoid arthritis involving multiple sites, unspecified whether rheumatoid factor present (HCC) Moderate persistent asthma without complication COMPREHENSIVE METABOLIC PANEL Routine 10/27/2024 11:51 AM CLINICAL ACADEMIC ALLERGIST Rheumatoid arthritis involving multiple sites, unspecified whether rheumatoid factor present (HCC) Moderate persistent asthma without complication DIAGNOSTIC MAMMOGRAM BILATERAL W DAREK Schedule DHRUV, Read DHRUV (Appt Today, Awaiting Results) 12/24/2023 8:24 AM CDT BRCA1 gene mutation positive Personal history of breast cancer DEXA AXIAL SKELETON BONE DENSITY 1 OR MORE SITES Schedule Routine, Read Routine (OP Routine) 11/20/2022 10:30 AM CLINICAL ACADEMIC ALLERGIST Malignant neoplasm of upper-inner quadrant of right breast in female, estrogen receptor negative (CMS/HCC) (HCC) BRCA1 gene mutation positive COLONOSCOPY 08/07/2021 12:32 PM CDT SERUM HEPATITIS C AB Routine 07/10/2016 4:26 PM CDT from Last 3 Months or Most Recently Relevant to Health Maintenance Results * eGFR (10/27/2024 1:04 PM CLINICAL ACADEMIC ALLERGIST) Pathologist [facility] eGFR >90 >=60 mL/min/1. 73 m2 Comment: [...] last reviewed 2021. Blood 10/27/2024 1:04 PM CLINICAL ACADEMIC ALLERGIST 10/27/2024 3:35 PM CLINICAL ACADEMIC ALLERGIST us Rachelle Jay MD LAB BLOOD ORDERABLES Final Resul t [facility] [address] Department of Laboratories [place], [place] [id number] * Comprehensive metabolic panel (10/27/2024 1:04 PM CLINICAL ACADEMIC ALLERGIST) [facility] Sodium 142 135 - 145 mmol/L Potassium, pl 4.4 3.3 - 4.9 mmol/L [facility] Chloride 104 97 - 110 mmol/L [facility] CO2 30 22 - 32 mmol/L [facility] Anion gap 8 2 - 15 mmol/L [facility] BUN 12 6 - 25 mg/dL [facility] Creatinine 0.65 0.60 - 1.10 mg/dL [facility] Glucose 98 70 - 199 mg/dL [facility] Comment: Interpretive Data Fasting glucose >/= 126 [...] 2022. Calcium 9.3 8.5 - 10.3 mg/dL [facility] Bilirubin, total 0.3 0.1 - 1.2 mg/dL [facility] Protein, pl 6.7 6.5 - 8.5 g/dL [facility] Albumin 4.1 3.5 - 5.0 g/dL [facility] Alk phos 116 40 - 130 Units/L [facility] ALT 26 7 - 45 Units/L [facility] AST 28 10 - 45 Units/L [facility] Blood 10/27/2024 1:04 PM CLINICAL ACADEMIC ALLERGIST 10/27/2024 3:35 PM CLINICAL ACADEMIC ALLERGIST us Rachelle Jay MD LAB BLOOD ORDERABLES Final Resul t [facility] [address] Department [place] [address] * eGFR (10/27/2024 11:51 AM CLINICAL ACADEMIC ALLERGIST) eGFR 89 >=60 mL/min/1. 73 m2 Comment: [...] reviewed 2021. Blood 10/27/2024 11:5 1 AM CLINICAL ACADEMIC ALLERGIST 10/27/2024 3:42 PM CLINICAL ACADEMIC ALLERGIST us Farzana Philippe MD LAB BLOOD ORDERABLES Final Result [facility] [address] [place] [address] * Differential, auto (10/27/2024 11:51 AM CLINICAL ACADEMIC ALLERGIST) Neutrophil abs 3.2 1.5 - 6.5 K/cumm Imm gran abs 0.0 0.0 - 0.1 K/cumm [facility] Lymphocyte abs 1.1 0.8 - 3.3 K/cumm [facility] Monocyte abs 0.6 0.2 - 0.8 K/cumm [facility] Eosinophil abs 0.0 0.0 - 0.5 K/cumm [facility] Basophil abs 0.0 0.0 - 0.1 K/cumm [facility] Neutrophil pct 65.2 % [facility] Comment: Interpretive Data Percent cell count reference ranges are not reported, since discordance with absolute values may lead to misinterpretation of CBC data. Current Interpretive Data was last revised on 2018. Imm gran pct 0.2 % [facility] Comment: Interpretive Data Percent cell count reference ranges are not reported, since discordance with absolute values may lead to misinterpretation of CBC data. Current Interpretive Data was last revised on 2018. Lymphocyte pct 21.6 % [facility] Comment: Interpretive Data Percent cell count reference ranges are not reported, since discordance with absolute values may lead to misinterpretation of CBC data. Current Interpretive Data was last revised on 2018. Monocyte pct 11.6 % [facility] Comment: Interpretive Data Percent cell count reference ranges are not reported, since discordance with absolute values may lead to misinterpretation of CBC data. Current Interpretive Data was last revised on 2018. Eosinophil pct 0.8 % [facility] Comment: Interpretive Data Percent cell count reference ranges are not reported, since discordance with absolute values may lead to misinterpretation of CBC data. Current Interpretive Data was last revised on 2018. Basophil pct 0.6 % [facility] Comment: Interpretive Data Percent cell count reference ranges are not reported, since discordance with absolute values may lead to misinterpretation of CBC data. Current Interpretive Data was last revised on 2018. Blood 10/27/2024 11:5 1 AM CLINICAL ACADEMIC ALLERGIST 10/27/2024 3:42 PM CLINICAL ACADEMIC ALLERGIST us Farzana Philippe MD LAB BLOOD ORDERABLES Final Result [facility] [address] Department [place] [address] * (ABNORMAL) CBC with auto differential (10/27/2024 11:51 AM CLINICAL ACADEMIC ALLERGIST) WBC 4.9 3.8 - 9.9 K/cumm Hgb 13.9 11.9 - 15.5 g/dL [facility] Hct 44.1 35.6 - 45.5 % [facility] Plt 199 150 - 400 K/cumm [facility] MPV 10.7 9.1 - 12.3 fL [facility] RBC 4.50 3.90 - 5.20 M/cumm [facility] MCV 98.0(H) 81.3 - 96.4 fL [facility] MCH 30.9 27.1 - 33.3 pg [facility] MCHC 31.5(L) 32.3 - 35.7 g/dL [facility] RDW CV 13.4 11.1 - 14.9 % [facility] RDW SD 48.8(H) 35.7 - 48.1 fL [facility] NRBC abs 0.00 0.00 - 0.01 K/cumm [facility] Blood 10/27/2024 11:5 1 AM CLINICAL ACADEMIC ALLERGIST 10/27/2024 3:42 PM CLINICAL ACADEMIC ALLERGIST Farzana Philippe MD LAB BLOOD ORDERABLES Final Result Performing Organization Address City/[facility]/ZIP Co de Phone Number [facility] [address] [place] [address] * Vitamin D 25 hydroxy (10/27/2024 11:51 AM CLINICAL ACADEMIC ALLERGIST) [facility] Vitamin D 25-OH 55 30 - 80 ng/mL Blood 10/27/2024 11:5 1 AM CLINICAL ACADEMIC ALLERGIST 10/27/2024 3:42 PM CLINICAL ACADEMIC ALLERGIST Farzana Philippe MD LAB BLOOD ORDERABLES Final Result Performing Organization Address [facility] de Phone Number [facility] [address] [place] [address] * Comprehensive metabolic panel (10/27/2024 11:51 AM CLINICAL ACADEMIC ALLERGIST) [facility] Sodium 143 135 - 145 mmol/L Potassium, pl 4.4 3.3 - 4.9 mmol/L [facility] Chloride 105 97 - 110 mmol/L [facility] CO2 29 22 - 32 mmol/L [facility] Anion gap 9 2 - 15 mmol/L [facility] BUN 11 6 - 25 mg/dL [facility] Creatinine 0.71 0.60 - 1.10 mg/dL [facility] Glucose 91 70 - 199 mg/dL [facility] Comment: Interpretive Data Fasting glucose >/= 126 [...] 2022. Calcium 9.4 8.5 - 10.3 mg/dL [facility] Bilirubin, total 0.3 0.1 - 1.2 mg/dL [facility] Protein, pl 6.9 6.5 - 8.5 g/dL [facility] Albumin 4.1 3.5 - 5.0 g/dL [facility] Alk phos 114 40 - 130 Units/L [facility] ALT 24 7 - 45 Units/L [facility] AST 28 10 - 45 Units/L [facility] Blood 10/27/2024 11:5 1 AM CLINICAL ACADEMIC ALLERGIST 10/27/2024 3:42 PM CLINICAL ACADEMIC ALLERGIST us Farzana Philippe MD LAB BLOOD ORDERABLES Final Result [facility] [address] [place] [address] * Diagnostic Mammogram Bilateral W Darek (12/24/2023 [...] of the examination. Electronically signed by: BUSTER CASEY Narrative 12/24/2023 9:13 AM CDT EXAMINATION: DIAGNOSTIC MAMMOGRAM [...] left breast is performed by both the print production coordinator and myself. At the level of palpable [...] consistent with a benign hematoma or seroma. Eric Peck MD IMG MAMMO PROCEDURES Final Result * Dexa Axial Skeleton Bone Density 1 or 2 Site (11/20/2022 10:30 AM CLINICAL ACADEMIC ALLERGIST) Anatomical Region Laterality Modality Body N/A Digital Radiogra phy 11/20/2022 10:3 5 AM CLINICAL ACADEMIC ALLERGIST Impressions 11/20/2022 10:35 AM CLINICAL ACADEMIC ALLERGIST Low bone mass (osteopenia) which depending on the clinical circumstances may result in a moderate increased risk of fragility fracture. If followup is to be done, for technical reasons, it should be performed on this same machine. Electronically signed by: Joe Flannery M.D. Narrative 11/20/2022 10:35 AM CLINICAL ACADEMIC ALLERGIST EXAM: Bone mineral density examination HISTORY: Osteopenia. Postmenopausal.. DXA BMD was done at [facility] on a Hologic Horizon W. Precision testing [...] Osteopenia. Postmenopausal.. DXA BMD was done at [facility] on a Hologic Horizon W. Precision testing [...] machine. Electronically signed by: Joe Flannery M.D. Yonny Ventura ZULETA IM DXA PROCEDURES Final Result * COLONOSCOPY (08/07/2021 12:32 PM CDT) Anatomical Region Laterality Modality Other Narrative Procedure Note Clifton Garcia MD - 08/07/2021 12:32 PM CDT ENDOSCOPY LAB Patient Name: Jody Kim Procedure Date: 08/07/2021 12:32 PM Admit Type: Outpatient Room: [facility] Date of : 1950 Instrument Name: [id number] [...] 08/07/2021 12:32 PM Scope In: Scope Out: us Clifton Garcia MD ENDOSCOPY PROCEDURES Final Re sult * Serum Hepatitis C ab (07/10/2016 4:26 PM CDT) HCV ab Negative Negative CDR HISTOR ICAL RESULTS Comment:Test performed at [facility], [address] [place] [address], [place]., [address] Serum 07/10/2016 4:26 PM CDT us Historical Provider LAB BLOOD ORDERABLES Gina l Result CDR HISTORICAL RESULTS from Last 3 Months or Most Recently Relevant to Health Maintenance Insurance MEDICARE [facility] [place] [address] [facility] CHOICE PLUS [place] [address] MEDICARE [facility] [place] [address] [facility] [place] [address] Advance Directives For more information, please contact: [phone] * Full Code (Latest Code Status on File) Date Activated Date Inactivated Comments 08/07/2021 11:37 AM 08/07/2021 6:34 PM Care Teams Ultrasound Technologist Relationship Specialty Start Date End Date Farzana Philippe MD [address] [address] PCP - General 01/04/17 Ashlyn Prince MD [address] [place] [address] Obstetrics and Gynecology 07/15/17 Hang Mcfadden III, MD [address] [place] [address] Radiation Oncology 07/15/17 Yonny Whitehead MD [address] [place] [address] Medical Oncologist/Underground [employer] Section Foreman Hematology 05/13/20 Eric Peck MD [address] [place] [address] Consulting Physician Surgical Oncology 12/18/23
--- OUTSIDE RECORDS SUMMARY | 2024-11-28 18:15 | XMS_ITS | Continuity of Care Document ---
Author Organization [facility] Address [address] [facility] ut[place] [address] [place] [id number] Phone Care Team Providers Care Chore Worker Name Role Phone Kevyn Benton MD Unavailable [...] Diagnoses Date Provider Providers Copied on Encounter [facility], [address], [place], [place], [id number], [place] tel:[phone] SEC Anupam GOMEZ Professional No Information 9 Chetan Bagley. [address], [address], [place], [place], [address], [place]. tel:[phone] [facility], [address] [place] [address] [address], [place], [place], [address], [place] tel:[phone] SEC Anupam GOMEZ Professional No Information Apr-0 9 Chetan Bagley. [address] [facility], [facility] [address], [place], [place], [address], [place]. tel:[phone] Specialist: [place], [address] [facility] [address], [place], [address]. tel:[phone] [facility], [address] [place] [address] [address], [place], [place], [address], [place] tel:[phone] SEC Anupam GOMEZ Professional 6 month Complete (chief complaint) High risk medication useKeratoconj unctivitis siccaAge-rela jose miguel nuclear cataract, bilateralOpti c cupping of both eyes Oct-2 8 Chetan Bagley. [address] [facility], [facility] [place], [address], [place]. tel:[phone] Specialist: Elsi Torre MD, [address] [facility], [address], [place], [address]. tel:[phone] ring Provider: Cayla Angelo, [address] [facility], [place], [address]. tel:[phone] [facility], [address] [place] [address] [address], [place], [place], [address], [place] tel:[phone] SEC [facility] No Information Aug-2 8 Syd Montes. [address] [facility] [address], [place], [address], [place]. 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 [address] [place], [place], [facility], [place]. tel:[phone] Referring Provider: Cayla Angelo, [address] [place] [address], [address]. tel:[phone] [facility], [address], [place], [place], [address], [place] tel:[phone] SEC Anupam GOMEZ Professional Complete Exam (chief complaint) Other watermelon harvesting supervisor drug therapyAge-re lated nuclear cataract, bilateralDry eye syndrome of bilateral lacrimal glands 7 Petey Kulkarni. [address] [place], [address], [place]. tel:[phone] Referring Provider: Ari Dutta, [address] [place], [address]. tel:[phone] [facility], [address], [place], [place], [address], [place] tel:[phone] SEC [facility] No Information 7 Petey Kulkarni. [address] [place], [address], . tel:[phone] Office/outpa tient Visit, Est [facility], [address], [place], [place], [address], [place] tel:[phone] SEC Anupam GOMEZ Professional F/u exam, Plaquenil therapy (chief complaint) Other watermelon harvesting supervisor drug therapyPuncta te keratitis of both eyesDry eye syndrome of right lacrimal glandDry eye syndrome of left lacrimal gland Nov- 6 Mac Chapman. [address] [facility], [place], [place], [address], [place]. tel:[phone] Referring Provider: Ari Wankum A, [address], [place], [address]. tel:[phone] [facility], [address] [place] [address] [address], [place], [place], [address], tel:[phone] SEC Anupam [place] Professional F/u exam, Rheumatoid arthritis (chief complaint) No Information 6 Mac Chapman. [address], [place], [place], [address], [place]. tel:[phone] Referring Provider: Ariguido Laceyjayeshmakenna Dutta, [address], [place], [address]. tel:[phone] Office/outpa tient Visit, [facility], [address] [place] [address] [address], [place], [place], [address], tel:[phone] SEC [place] Professional Blurry vision (chief complaint) No Information 5 Mac Chapman. [address], [place], [address], . tel:[phone] Referring Provider: Ari Hallmakenna Dutta, [address], [place], [address]. tel:[phone] Office/outpa tient Visit, [facility], [address] [place] [address] [address], [place], [place], [address], [place] tel:[phone] SEC [place] Professional Dry eyes (chief complaint)F /u exam, Plaquenil therapy (chief complaint) No Information 0 4 Mac Chapman. [address], [place], [place], [address], [place]. tel:[phone] Referring Provider: Ari Dutta, [address], [place], [address]. tel:[phone] Office/outpa tient Visit, Est [facility], [address], [place], [place], [address], tel:[phone] SEC Anupam GOMEZ Professional 2 month check after starting restasis (chief complaint) No Information 4 Abhijitingris Chapman. [address], [facility] [place], [address], . tel:[phone] Referring Provider: Ari Dutta, [address] [facility] [place], [address]. [phone] [facility], [address], [place], [place], [address], tel:[phone] SEC Anupam GOMEZ Professional irritation (chief complaint) No Information 4 Mac Chapman. [address] [employer] [address], [facility] [address], [place], [place], [address], . tel:[phone] Referring Provider: Ari Dutta, [address] [place], [address]. [phone] Family History Family Member Type Diagnosis Age At Onset Problem (finding) Family history of Stoma ch cancer Sister Problem (finding) glaucoma Problem (finding) Family history of Breas t Problem (finding) Family history of malignant neoplasm of ovary Close relative Problem (finding) hypertension Payers Payer name Insurance type Covered libertarian ID Authoriza tion(s) [facility] Commercial CI [id number] Social History Type Description Quantity Date Captured [...] Educational material provided Re lated to Other assisted drug therapy Impression/Plan Return in 6 months w heavnely Angelo M.D. for follow up exam. Related to Other assisted drug therapy Impression/Plan - Di scussed cataracts with pt and treatment options. pt also understands at this time vision does not qualify to have CE with insurance coverage, will monitor. Related to Age-related nuclear cataract, bilateral Follow up - Return i n 6 months with Cayla Angelo M.D. 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 No signs of hydroxychloroquine toxicity, OK to continue medication. 10-2 Visual barnett are poor reliability, within normal range. Return to clinic in 6 months for Plaquenil check with OCT MAC or sooner with problems. Plaquenil letter sent to Dr Farzana Philippe. Related to Other assisted drug therapy Impression/Plan - Co ntinue Restasis BID OU, refills not needed at this time. Instructed patient to use refresh PM QHS OU. 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 Rx for Restasis sent to [facility]. RTC in 2 months after starting Restasis. Educational materials provided:about today's exam. Related to See impression: general plan Assessments Type Assessment Date No Information Patient Care Teams Name Effective Dates (start - stop) Status Members No Information
--- NOTE | 2024-11-28 19:41 | ED.GENADULT ---
HPI - General Adult General Chief complaint: Upper Respiratory Infection Stated complaint: cough, out of breath Source: patient Mode of arrival: ambulatory Limitations: no limitations History of Present Illness HPI narrative: Patient presents for evaluation of a chronic cough. She has experience symptoms for over 5 years. She recently saw equipment maint tech and had a CT scan. She has taken steroids in the past which gave temporary relief with almost immediate return of her symptoms or after. It sounds like she took prednisone but did not like the way that it made her feel. She has an underlying history of asthma. Which was recently started on 2 new medications by pulmonology, neither one of which seemed to work. She has taken Robitussin and start Mucinex DM last night. She indicates Mucinex DM seem to help. She states she has experienced longer relief in her symptoms when she took augmentin. She does not smoke. She is not on an mercedes inhibitor. She has reflux but takes omeprazole. She also has a history of thyroid nodules which are being surveillanced. She has some wheezing. She denies any chest pain or any infectious symptoms including but not limited to fever, chills, nausea, vomiting. Related Data Home Medications ?Medication ?Instructions ?Recorded ?Confirmed ?Last Taken ?Type leflunomide 20 mg tablet (Arava) 20 mg PO DAILY 06/23/22 12/21/23 Unknown History omeprazole 40 mg capsule,delayed 40 mg PO BID 06/23/22 12/21/23 Unknown History release albuterol sulfate 90 mcg/actuation 2 puff inhalation QID PRN 12/21/23 12/21/23 Unknown History aerosol inhaler Shortness Of Breath Or Wheezing tlmujunceov-acmensppr-atysuahw inhalation 11/28/24 Unknown History hydroxychloroquine PO 11/28/24 Unknown History loratadine 10 mg tablet (Claritin) 10 mg PO DAILY 11/28/24 Unknown History mepolizumab subcut 11/28/24 Unknown History montelukast .ROUTE 11/28/24 Unknown History zolpidem 10 mg tablet mg 11/28/24 Unknown History Allergies Allergy/AdvReac Type Severity Reaction Status Date / Time Sulfa (Sulfonamide Allergy Intermediate Itching Verified 11/28/24 18:21 Antibiotics) Review of Systems Review of Systems: CONSTITUTIONAL: Denies fever, chills, or sweats. EYES: Denies visual changes, redness, or discharge. ENT: Denies rhinorrhea, congestion, sore throat, or otalgia. CARDIOVASCULAR: Denies chest pain, palpitations, or edema. RESPIRATORY: Reports chronic cough. Reports wheezing. GASTROINTESTINAL: Denies abdominal pain, nausea, vomiting, or diarrhea. GENITOURINARY: Denies dysuria or hematuria. SKIN: Denies rash or itching. MUSCULOSKELETAL: Denies back pain, joint pain, or myalgia. NEUROLOGIC: Denies headache, numbness, dizziness, or weakness. PSYCHIATRIC: Denies anxiety or depression. [facility] Past Medical History Medical History Asthma Thyroid nodule Fracture of left wrist Breast cancer left GERD (gastroesophageal reflux disease) Rheumatoid arthritis Surgical History Surgical History S/P lumpectomy, left breast S/P removal of thyroid nodule History of bunionectomy H/O: hysterectomy Family History Family History Mother Family history non-contributory Social History Social History Smoking status: Never smoker Alcohol intake: current Alcohol use details: rare social Substance use type: does not use Living arrangements: alone Additional living arrangements comments: recent Gender identity (if verbalized by the patient): Female Exam Narrative: GENERAL: Well-appearing, well-nourished, and in no acute distress. HEAD: Normocephalic, atraumatic. EYES: PERRLA and EOMI. ENT: Nares clear, no rhinorrhea or epistaxis. Mucous membranes moist. Oropharynx without tonsillar hypertrophy exudate or other lesions. Bilateral TMs pearly leger nonbulging NECK: Supple. No adenopathy or masses. No carotid bruits or JVD CHEST: Mild wheezing noted in posterior lung barnett. Occasional cough present on exam HEART: Regular rate and rhythm. No murmur heard. Normal peripheral pulses. ABDOMEN: Soft, nontender, nondistended, normal active bowel sounds. EXTREMITIES: Normal range of motion. No edema. SKIN: Warm, dry, no rash. NEURO: No focal deficits. Alert and oriented x3. PSYCH: Normal mood and affect. Course Course Emergency Course: This is a 74-year-old female who presented for evaluation of chronic cough. She had a CT scan of her chest within the last 3 weeks and cough was going on then so we opted to forego imaging. She has no infectious symptoms warranting further workup. She did have improvement in the past with Augmentin so will treat with that today. It sounds like prednisone had some unpleasant side effects. We discussed that sometimes methylprednisolone is better tolerated so she agreed to a trial today. 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 She will follow-up with her equipment maint tech. She will continue take her PPI. She should go to the emergency department for worsening symptoms patient in agreement with plan of care. Level of Care: Express Care Visit Vital Signs Vital signs: Vital Signs Temperature 36.4 C L 11/28/24 18:15 Pulse Rate 113 H 11/28/24 18:15 Respiratory Rate 11/28/24 18:15 Blood Pressure 110/93 H 11/28/24 18:15 Pulse Oximetry 100 11/28/24 18:15 Oxygen Delivery Room Air 11/28/24 18:15 Temperature 36.4 C L 11/28/24 18:15 Pulse Rate 113 H 11/28/24 18:15 Respiratory Rate 20 11/28/24 18:15 Blood Pressure 110/93 H 11/28/24 18:15 Pulse Oximetry 100 11/28/24 18:15 Oxygen Delivery Room Air 11/28/24 18:15 Medical Decision Making Vital Signs Vital Signs: Vital Signs Temperature 36.4 C L 11/28/24 18:15 Pulse Rate 113 H 11/28/24 18:15 Respiratory Rate 11/28/24 18:15 Blood Pressure 110/93 H 11/28/24 18:15 Pulse Oximetry 100 11/28/24 18:15 Oxygen Delivery Room Air 11/28/24 18:15 Temperature 36.4 C L 11/28/24 18:15 Pulse Rate 113 H 11/28/24 18:15 Respiratory Rate 20 11/28/24 18:15 Blood Pressure 110/93 H 11/28/24 18:15 Pulse Oximetry 100 11/28/24 18:15 Oxygen Delivery Room Air 11/28/24 18:15 Discharge Plan Discharge Clinical Impression: Chronic cough Patient Disposition: Home, Self-Care Condition: Stable Instructions: Antibiotic Form, Chronic Cough (ED) Additional Instructions: TRY SLEEPING WITH A HUMIDIFIED PLEASE SPEAK WITH YOUR PERSONNEL TRAINING OFFICER TO DETERMINE WHETHER THEY THINK YOUR MEDICATION MAY BE CONTRIBUTING TO YOUR COUGH Patient Language: Algerian Prescriptions: New amoxicillin-pot clavulanate 875-125 mg tablet 1 tablet PO Q12H Qty: 20 0RF methylprednisolone [Medrol (Michele)] 4 mg tablets,dose pack See Rx Instructions .ROUTE .COMPLEX Qty: 21 0RF Rx Instructions: for 6 days No Action albuterol sulfate 90 mcg/actuation Hfa Aerosol Inhaler 2 puff INHALATION QID PRN (Reason: Shortness Of Breath Or Wheezing) omeprazole 40 mg Capsule,Delayed Release(Dr/Ec) 40 mg PO BID leflunomide [Arava] 20 mg Tablet 20 mg PO DAILY mepolizumab [Nucala] subcut hydroxychloroquine [Plaquenil] PO zolpidem 10 mg tablet hknvqllfmcg-afwndoity-zkkdxxlw [Trelegy Ellipta] inhalation loratadine [Claritin] 10 mg tablet 10 mg PO DAILY montelukast [Singulair] .ROUTE Follow-up/Referrals: Guido Augustine MD [Physician] - Time of Disposition: 19:32
== END 2024-11-28 19:36 | disposition home or self-care (01) ==
PROVIDERS: Emergency Provider Nurse Practitioner
DX: R05.3 Chronic cough (principal); J45.909 Unspecified asthma, uncomplicated; K21.9 Gastro-esophageal reflux disease without esophagitis; M06.9 Rheumatoid arthritis, unspecified; Z85.3 Personal history of malignant neoplasm of breast; Z90.12 Acquired absence of left breast and nipple
CPT/HCPCS: 99213; G0463

== ENCOUNTER 2024-12-17 10:19 | Emergency (ER) | payer MEDICARE, OTHER, SELFPAY ==
[2024-12-17 10:24] VITALS: BP 145/72; PULSE 85; RESP 20; TEMP 37.3; O2SAT 98
--- NOTE | 2024-12-17 10:38 | ED.GENADULT ---
HPI - General Adult General Chief complaint: Upper Respiratory Infection Stated complaint: body aches/headache/cough Time Seen by Provider: 12/17/24 10:55 Source: patient, RN notes reviewed and old records reviewed Mode of arrival: ambulatory Limitations: no limitations History of Present Illness HPI narrative: 74-year-old female presents to the [facility] with complaints of 2 day history of body aches, headache, cough. Reports she has taken does send and Aleve. Denies chest pain shortness breath Onset (ago): day(s) (2) Related Data Home Medications ?Medication ?Instructions ?Recorded ?Confirmed ?Last Taken ?Type leflunomide 20 mg tablet (Arava) 20 mg PO DAILY 06/23/22 12/21/23 Unknown History omeprazole 40 mg capsule,delayed 40 mg PO BID 06/23/22 12/21/23 Unknown History release albuterol sulfate 90 mcg/actuation 2 puff inhalation QID PRN 12/21/23 12/21/23 Unknown History aerosol inhaler Shortness Of Breath Or Wheezing idwtlgqmgbl-mgebfjuue-ujcblrly inhalation 11/28/24 Unknown History hydroxychloroquine PO 11/28/24 Unknown History loratadine 10 mg tablet (Claritin) 10 mg PO DAILY 11/28/24 Unknown History mepolizumab subcut 11/28/24 Unknown History montelukast .ROUTE 11/28/24 Unknown History zolpidem 10 mg tablet mg 11/28/24 Unknown History Allergies Allergy/AdvReac Type Severity Reaction Status Date / Time Sulfa (Sulfonamide Allergy Intermediate Itching Verified 11/28/24 18:21 Antibiotics) Review of Systems Review of Systems: All systems reviewed & are unremarkable except as noted in HPI and below Constitutional: Constitutional: Reports as per HPI, Reports body ache(s) and Reports headache(s) ENT: Reports system reviewed and no additional complaints, except as documented Cardiovascular: Cardiovascular: Reports no additional cardiovascular complaints, Denies chest pain and Denies dyspnea Respiratory: Respiratory: Reports as per HPI, Denies chest congestion, Reports cough and Denies dyspnea Musculoskeletal: Musculoskeletal: Reports no additional musculoskeletal complaints Integumentary/Breasts: Skin/Breast: Reports system reviewed and no additional complaints, except as docu PMFSH Past Medical History Medical History Asthma Thyroid nodule Fracture of left wrist Breast cancer left GERD (gastroesophageal reflux disease) Rheumatoid arthritis Surgical History Surgical History S/P lumpectomy, left breast S/P removal of thyroid nodule History of bunionectomy H/O: hysterectomy Family History Family History Mother Family history non-contributory Social History Social History Smoking status: Never smoker Alcohol intake: current Alcohol use details: rare social Substance use type: does not use Living arrangements: alone Additional living arrangements comments: recent Gender identity (if verbalized by the patient): Female Comments At the time of my signature, I reviewed and agree with the nursing past medical, surgical, social, and family history. There is no relevant family history pertinent to the patient complaint. Exam Const: General: cooperative, healthy appearing, comfortable, no acute distress, well developed, alert and well nourished Nutritional Appearance: well nourished Orientation/consciousness: patient oriented x3 Limitations: no limitations HENMT: Head: normal to inspection Ears: hearing grossly normal bilaterally, external ears normal, TM's normal bilaterally, mastoids normal, no periauricular adenopathy and Abnormal EAC present Face/Nose/Sinus: Normal external nose present, Normal nares present, No nasal polyps present and No nasal discharge present Mouth: Yes Normal oral and palatal mucosa present, Yes lip normal, Yes tongue normal and Yes moist mucous membranes Throat: posterior oropharynx normal, uvula midline and no uvular edema Eyes: General: appearance normal, both eyes and all related structures Alignment and Position: alignment normal Neck: Neck: normal visual inspection, full ROM, no lymphadenopathy and no meningeal signs Chest: Chest palpation & inspection: normal inspection of the chest Resp: Effort & Inspection: normal respiratory effort and able to speak in complete sentences Auscultation: no crackles, no rales, no rhonchi and wheezes expiratory wheezes and scattered wheezes Cardio: Rate: regular rate Skin: General skin exam: normal color and no rashes or lesions noted Neuro: General: patient oriented x3, gait normal, moves all extremities and no meningeal signs Cognition (Neuro): normal cognition Speech: normal speech Gait exam (Neuro): Normal gait present Extrem: General: normal to inspection, full ROM, capillary refill normal and normal gait Psych: Appearance: grossly normal and well kempt Mental Status: mental status grossly normal Speech and movement: Normal speech and movement present and Clear speech present Affect: normal affect Attitude: cooperative Course Course Level of Care: Express Care Visit Vital Signs Vital signs: Vital Signs Temperature 99.1 F 12/17/24 10:24 Pulse Rate 85 12/17/24 10:24 Respiratory Rate 20 12/17/24 10:24 Blood Pressure 145/72 H 12/17/24 10:24 Pulse Oximetry 98 12/17/24 10:24 Oxygen Delivery Room Air 12/17/24 10:24 Temperature 99.1 F 12/17/24 10:24 Pulse Rate 85 12/17/24 10:24 Respiratory Rate 20 12/17/24 10:24 Blood Pressure 145/72 H 12/17/24 10:24 Pulse Oximetry 98 12/17/24 10:24 Oxygen Delivery Room Air 12/17/24 10:24 Reviewed Medical Decision Making MDM Narrative Medical decision making narrative: Patient sitting comfortably in exam room. Nontoxic, vitals stable. Patient in no acute distress Patient presents for 2 day history of cough, body aches and headache. Flu and COVID are negative Mild wheezing noted expiratory. Patient states that she has enough inhaler at home to use. Patient is appropriate for outpatient treatment with follow-up. Discharge instructions reviewed with patient, as well as provided in writing per nursing staff. The instructions also include specific and strict return/GO TO THE ER as well as f/u information. All questions have been answered, and the patient deny any further questions with discharge and discharge plan. Some parts of this dictation were generated by voice recognition software and may contain typographical and/or grammatical inaccuracies. Differential Diagnosis Differential Diagnosis: Cough, bronchitis, flu, COVID Medical Records Medical records reviewed: Yes I reviewed the external patient's medical records. Vital Signs Vital Signs: Vital Signs Temperature 99.1 F 12/17/24 10:24 Pulse Rate 85 12/17/24 10:24 Respiratory Rate 20 12/17/24 10:24 Blood Pressure 145/72 H 12/17/24 10:24 Pulse Oximetry 98 12/17/24 10:24 Oxygen Delivery Room Air 12/17/24 10:24 Temperature 99.1 F 12/17/24 10:24 Pulse Rate 85 12/17/24 10:24 Respiratory Rate 20 12/17/24 10:24 Blood Pressure 145/72 H 12/17/24 10:24 Pulse Oximetry 98 12/17/24 10:24 Oxygen Delivery Room Air 12/17/24 10:24 Reviewed Lab Data Lab results reviewed: Yes I reviewed the patient's lab results. Labs: Lab Results 12/17/24 Range/Units 10:32 POC Influenza A Ag Negative (Negative) POC Influenza B Ag Negative (Negative) POC SARS CoV-2 Ag Negative (Negative) Reviewed Critical Care Time Critical Care Time Critical Care Time: No Discharge Plan Discharge Clinical Impression: Cough Qualifiers: Cough type: acute Qualified Code(s): R05.1 - Acute cough Patient Disposition: Home, Self-Care Condition: Stable Instructions: Antibiotic Form, Acute Cough (ED) Additional Instructions: Your rapid COVID test were negative Your rapid flu test was negative use your inhaler every 4-5 hours while awake for year wheezing today your blood pressure was 145/72. Recommended follow-up with your primary care provider to have it rechecked Your symptoms are likely due to a viral illness, which is not treated with antibiotics. Typically viral infections last 7-10 days, can linger for couple of weeks. It is very important to treat your symptoms. Drink plenty of water, Gatorade, Pedialyte, ice pops or Jell-O. -Alternate Tylenol and Motrin per package directions for fever or pain. You can alternate every 4 hours -Antihistamine medication such as Zyrtec/Claritin/Joan during the day can help improve symptoms. -Use Flonase daily to help reduce the inflammation and dry up your sinuses. -You can also use Mucinex. Be sure to drink plenty of water with this medication at least 8 ounces with every dose and it is important to drink 8 to 10 glasses of water per day. Water is a natural decongestant -Eat and drink things that are easy to swallow, like tea or soup, or popsicles. -Oral rinses such as: Salt water gargles and/or may use topical anesthetic (eg. Chloraseptic spray) or lozenges to relieve dryness or throat pain). -Frequent hand washing or hand database marketing analyst is one of the best ways to prevent spread of infection. -Using a vaporizer or humidifier at night will also help thin secretions and help with coughing up phlegm. -Follow up with primary care provider in 7-10 days if condition is not improving - For new or worsening symptoms go directly to the nearest ER Patient Language: Slovak Prescriptions: No Action albuterol sulfate 90 mcg/actuation Hfa Aerosol Inhaler 2 puff INHALATION QID PRN (Reason: Shortness Of Breath Or Wheezing) omeprazole 40 mg Capsule,Delayed Release(Dr/Ec) 40 mg PO BID leflunomide [Arava] 20 mg Tablet 20 mg PO DAILY mepolizumab [Nucala] subcut hydroxychloroquine [Plaquenil] PO zolpidem 10 mg tablet bislpdtzztg-smspgaiyw-xwobxxld [Trelegy Ellipta] inhalation loratadine [Claritin] 10 mg tablet 10 mg PO DAILY montelukast [Singulair] .ROUTE Follow-up/Referrals: PHYSICIAN NOT ON STAFF,NONSTAFF [Primary Care Provider] - Time of Disposition: 11:01
[2024-12-17 10:49] LABS: EDCOVIDSCREEN Negative (Negative); EDINFLUASCREEN Negative (Negative); EDINFLUBSCREEN Negative (Negative)
--- OUTSIDE RECORDS SUMMARY | 2024-12-17 11:54 | XMS_ITS | Patient Health Record ---
Author Organization [facility]on Address [address] [place] [address] Care Team Providers Care It Integration Architect Name Role Phone Farzana Philippe MD Primary Care Provider Unavailesteban JayRachelle Unavailable [phone] Allergies Allergen (clinical drug ingredient) Drug/Non Drug [...] date:04/30/2024 05:44:53 PM Interpretation:Lab Result Generalized Performing Lab:[facility] , [address] [place] [address]. [facility] [address] Notes/Report: WBC 5.9 3.8-9.9 K/cumm Hgb 13.4 [...] date:04/30/2024 05:44:53 PM Interpretation:Lab Result Generalized Performing Lab:[facility] , [facility] [facility]. [place] [address] Notes/Report: Sodium 143 135-145 mmol/L Plasma Potassium [...] 30 7-45 Units/L AST 31 10-45 Units/L eGFR Reviewed date:04/30/2024 05:46:26 PM Interpretation: Performing Lab:[facility] , [address] [facility]. [place] [address] Notes/Report: eGFR >90 >=60 mL/min/1.73 m2 Interpretive [...] was last reviewed 2021. Differential Automated Reviewed date:04/30/2024 05:46:26 PM Interpretation: Performing Lab:[facility] , [address] [facility] [address] Notes/Report: Neut Abs 3.2 1.5-6.5 K/cumm ImmGran Abs 0.0 0.0-0.1 K/cumm Lymphocyte Abs 1.1 0.8-3.3 K/cumm [place] Abs 0.7 0.2-0.8 K/cumm Eos Abs 0.8 [...] Interpretive Data was last revised on 2018. [place] Pct 12.3 Interpretive Data Percent cell count [...] Interpretive Data was last revised on 2018. Comprehensive metabolic pane l (CMP) Reviewed date:07/30/2024 09:42:15 PM Interpretation:Lab Result Generalized Performing Lab:[facility] , [address] [place] [address]. [place] [address] Notes/Report: Sodium 143 135-145 mmol/L Plasma Potassium [...] 33 7-45 Units/L AST 27 10-45 Units/L CBC w auto diff Reviewed date:07/30/2024 09:42:15 PM Interpretation:Lab Result Generalized Performing Lab:[facility] , [address] [place] [address]. [place] [address] Notes/Report: WBC 5.8 3.8-9.9 K/cumm Hgb 14.0 11.9-15.5 g/dL Hct 44.3 35.6-45.5 % Platelet Ct 196 150-400 K/cumm MPV 10.7 9.1-12.3 fL RBC 4.35 3.90-5.20 M/cumm MCV 101.8 81.3-96.4 fL MCH 32.2 27.1-33.3 pg MCHC 31.6 32.3-35.7 g/dL RDW CV 14.5 11.1-14.9 % RDW SD 54.2 35.7-48.1 fL NRBC Abs Auto 0.00 0.00-0.01 K/cumm eGFR Reviewed date:10/28/2024 08:30:59 AM Interpretation: Performing Lab:[facility] , [address] [facility]. [place] [address] Notes/Report: eGFR >90 >=60 mL/min/1.73 m2 Interpretive [...] data was last reviewed 2021. eGFR Reviewed date:07/30/2024 09:42:33 PM Interpretation: Performing Lab:[facility] , [address] [place] [address] Notes/Report: eGFR 80 >=60 mL/min/1.73 m2 Interpretive [...] Automated Reviewed date:07/30/2024 09:42:33 PM Interpretation: Performing Lab:[facility] , [address] [facility] [address] Notes/Report: Neut Abs 3.2 1.5-6.5 K/cumm ImmGran Abs 0.0 0.0-0.1 K/cumm Lymphocyte Abs 1.2 0.8-3.3 K/cumm [place] Abs 0.7 0.2-0.8 K/cumm Eos Abs 0.7 [...] Interpretive Data was last revised on 2018. [place] Pct 12.0 Interpretive Data Percent cell count [...] Interpretive Data was last revised on 2018. Comprehensive metabolic pane l (CMP) Reviewed date:10/28/2024 08:30:44 AM Interpretation:Lab Result Generalized Performing Lab:[facility] , [address] [place] [address]. [place] [address] Notes/Report: Sodium 142 135-145 mmol/L Plasma Potassium [...] 26 7-45 Units/L AST 28 10-45 Units/L Reason For Referral No Information Medications Medication SIG (Take, Route, Frequency, Duration) Notes Start Date End Date Status Gabapentin 600 MG take 1 tablet (600 mg) by oral route 3 times per day Oral 3 Active Culturelle - daily oral *Pick strength-form from [employer] for eRX* Active valACYclovir HCl 500 MG take 2 tablets (1,000 mg) by oral route once daily Oral 1 Active Albuterol Sulfate HFA 108 (90 Base) MCG/ACT 2 puffs QID prn Inhalation 05/03/2010 Active cyanocobalamin (vitamin B-12) 5,000 mcg take 1 capsule by oral route once oral 1 *Reorder from [employer] for eRx and Interaction Alerts* Active Leflunomide [...] oral route once oral 1 *Reorder from [employer] for eRx and Interaction Alerts* Active Montelukast [...] 1 Active Vitamin D (Ergocalciferol) 1.25 MG (41199 UT) take 2 capsules monthly Oral Active Loratadine 10 MG take 1 tablet (10 mg) by oral route once daily Oral 1 Active Zolpidem Tartrate 10 MG take 1 tablet (1 0 mg) by oral route once daily at bedtime Oral 1 Active Immunizations Vaccine Route Administration Date Status Comme nts Tdap Unknown 05/18/2010 Administered migrated Leg Patid= [id number] Date=05/18/2010 Vac= Tdap TB Skin Test Unknown 04/26/2008 Administered migrated L egPatid= [id number] Date=04/26/2008 Vac= TB Skin Test Pneumococcal conjugate PCV 13 Unknown 10/02/2007 Administered migrated LegPati d= [id number] Date=10/02/2007 Vac= Pneumonia vaccine Problems Problem Type SNOMED Code ICD Code Onset Dates Problem Status W/U Status Risk Notes Problem 985298311 Rheumatoid arthritis without rheumatoid factor, multiple sites (M06.09) Active confirmed Problem Personal history of primary malignant neoplasm of breast (932860303) History of breast cancer (Z85.3) Active confirmed Vital Signs Heart Rate 76 /min 07/30/2024 Temperature 97.3 degrees Fahrenheit 07/30/2024 Height-cm 160.02 cm 07/30/2024 Oximetry 97 % 07/30/2024 Blood pressure diastolic 74 mm Hg 07/30/2024 Weight-kg 86.89 kg 07/30/2024 Height 63 in 07/30/2024 Blood pressure systolic 124 mm Hg 07/30/2024 Weight 191.6 lbs 07/30/2024 BMI 33.94 kg/m2 07/30/2024 Encounters Encounter Location Date Provider Diagnosis [facility] [address] [place] [address] 01/28/2024 Rachelle Du Rheumatoid arthritis without rheumatoid factor, multiple sites M06.09 ; History of breast cancer Z85.3 and High risk medication use Z79.899 [facility] [address], [place] [address] 04/30/2024 Rachelle Du Rheumatoid arthritis without rheumatoid factor, multiple sites M06.09 ; History of breast cancer Z85.3 and High risk medication use Z79.899 [facility] [address], [place] [address] 07/30/2024 Rachelle Du Rheumatoid arthritis without rheumatoid factor, multiple sites M06.09 ; History of breast cancer Z85.3 and High risk medication use Z79.899 [facility] [address], [place] [address] 10/27/2024 Rachelle Du Rheumatoid arthritis without rheumatoid factor, multiple sites M06.09 ; History of breast cancer Z85.3 and High risk medication use Z79.899 [facility] [address], [place] [address] 03/04/2024 Rachelle Du [facility] [address] [place] [address] 04/20/2024 Rachelle Du [facility] [address], [place] [address] 04/27/2024 Rachelle Du [facility] [address] [place] [address] 04/27/2024 Rachelle Du Assessments Encounter Date Diagnosis [...] 01/28 10:45:00 AM, [address], [facility] [address], [place], [address], Insurance Providers Payer Name Payer Address Payer Phone Subscriber Number Group Number Insured Name Patient Relationship to Insured Coverage Start Date Coverage End Date Medicare [address] [address] [place] [address] [id number] Jody Perez Self - patient is the insured [address] [address] [place] [address] [id number] Jody Perez Self - patient is the [...]
--- OUTSIDE RECORDS SUMMARY | 2024-12-17 11:54 | XMS_ITS ---
Author Organization [facility]on Address [address] [place] [address] Care Team Providers Care Moisture Meter Reader Name Role Phone Farzana Philippe MD Primary Care Provider Melecio FuentesRachelle Unavailable [phone] Allergies Allergen (clinical drug ingredient) Drug/Non Drug [...] Notes Comprehensive metabolic pane l (CMP) Reviewed date:04/30/2024 05:44:53 PM Interpretation:Lab Result Generalized Performing Lab:[facility] , [address] [place] [address]. [facility] [address] Notes/Report: Sodium 143 135-145 mmol/L Plasma Potassium [...] 10-45 Units/L CBC w auto diff Reviewed date:04/30/2024 05:44:53 PM Interpretation:Lab Result Generalized Performing Lab:[facility] , [address] [place] [address]. [facility] [address] Notes/Report: WBC 5.9 3.8-9.9 K/cumm Hgb 13.4 11.9-15.5 g/dL Hct 42.5 35.6-45.5 % Platelet Ct 170 150-400 K/cumm MPV 10.2 9.1-12.3 fL RBC 4.35 3.90-5.20 M/cumm MCV 97.7 81.3-96.4 fL MCH 30.8 27.1-33.3 pg MCHC 31.5 32.3-35.7 g/dL RDW CV 13.8 11.1-14.9 % RDW SD 50.2 35.7-48.1 fL NRBC Abs Auto 0.00 0.00-0.01 K/cumm REASON FOR VISIT yd/3 month follow up/flc, RA Medications Medication SIG (Take, Route, Frequency, Duration) Notes Start Date End Date Status Zolpidem Tartrate 10 MG take 1 tablet (10 mg) by oral route once daily at bedtime Oral 1 Active Gabapentin 600 MG take 1 tablet (600 mg) by oral route 3 times per day Oral 3 Active Vitamin D (Ergocalciferol) 1.25 MG (90468 UT) take 2 capsules monthly Oral Active [...] Culturelle - daily oral *Pick strength-form from [employer] for eRX* Active valACYclovir HCl 500 MG take 2 tablets (1,000 mg) by oral route once daily Oral 1 Active Leflunomide 20 MG 1 tablet Orally Once a day for 90 days 03/04/2024 07/26/2024 Active OCUVITE ADULT 50 PLUS 250 mg (90 mg-160 mg) take 1 capsule by oral route once oral 1 *Reorder from [employer] for eRx and Interaction Alerts* Active Hydroxychloroquine Sulfate 200 MG 2 Orally daily for 90 days 07/26/2024 Active cyanocobalamin (vitamin B-12) 5,000 mcg take 1 capsule by oral route once oral 1 *Reorder from [employer] for eRx and Interaction Alerts* Active Restasis [...] evening Inhalation 2 Active Vitamin D (Ergocalciferol) 42876 UNIT Oral Active Melatonin 10 MG take [...] 04/30/2024 Encounters Encounter Location Date Provider Diagnosis [facility] [address] [place] [address] 04/30/2024 Rachelle Fuentes Rheumatoid arthritis without rheumatoid [...] Reason: Provider Name:Rachelle Fuentes, 01/28 10:45:00 AM, [address], [address], [place], [address], Progress Notes * JUDY Jody KDOB:[birth year] (73 yo F)Acc No.[id number]:04/30/2024 Progress Notes Patient: Jody FISHER Provider: Ever FUENTES MD :1950 A ge:73 Y S ex:Female Date:04/30/2024 [facility] Pcp:Farzana Philippe MD Subjective: * Chief Complaints: [...] History: * Surgical History: H ysterectomy: 1983; 9722-52-50Lpwl surgery; 9615-71-42Kmshi removal: right; 8742-94-90rnjw stripping; 9021-86-34kgaccvx lobectomy, Date of Procedure: 1992; 5078-53-26Tmc Surgery; 6601-00-79Eeqj surgery; 5229-52-60Lrzl Ligation; 4648-22-57Tvtpmmghbf, left breast; 3457-60-38mswxdpfdpryzx; 2023-07-24 * Hospitalization/Major Diagno stic Procedure: * [...] 1 , Notes to Pharmacist: *Reorder from [employer] for eRx and Interaction Alerts*Magnesium 250 MG Tablet take 1 tablet by oral route once Oral 1 Flonase Allergy Relief 50 MCG/ACT Suspension - Nasal Albuterol Sulfate HFA 108 (90 Base) MCG/ACT Aerosol Solution 2 puffs QID prn Inhalation Culturelle - daily oral , Notes to Pharmacist: *Pick strength-form from [employer] for eRX*Furosemide 20 MG Tablet take 1 [...] Oral 1 Vitamin D (Ergocalciferol) 1.25 MG (59780 UT) Capsule take 2 capsules monthly Oral Calcium Pantothenate 500 MG Tablet chew 1 tablet by oral route once Oral 1 Restasis 0.05 % Emulsion instill 1 drop into right eye by ophthalmic route every 12 hours Ophthalmic 2 Montelukast Sodium 10 MG Tablet take 1 tablet (10 mg) by oral route once daily in the evening Oral 1 Vitamin D (Ergocalciferol) 66941 UNIT Capsule Oral Symbicort 80-4.5 MCG/ACT Aerosol inhale 2 puffs by inhalation route 2 times per day in the morning and evening Inhalation 2 Melatonin 10 MG Capsule take 1 capsule by oral route once Oral 1 cyanocobalamin (vitamin B-12) 5,000 mcg capsule take 1 capsule by oral route once oral 1 , Notes to Pharmacist: *Reorder from [facility] for eRx and Interaction Alerts*valACYclovir HCl [...] 1 , Notes to Pharmacist: *Reorder from [facility] for eRx and Interaction Alerts*Taking Magnesium 250 MG Tablet take 1 tablet by oral route once Oral 1 Taking Flonase Allergy Relief 50 MCG/ACT Suspension - Nasal Taking Albuterol Sulfate HFA 108 (90 Base) MCG/ACT Aerosol Solution 2 puffs QID prn Inhalation Taking Culturelle - daily oral , Notes to Pharmacist: *Pick strength-form from [facility] for eRX*Taking Furosemide 20 MG Tablet [...] 1 Taking Vitamin D (Ergocalciferol) 1.25 MG (88367 UT) Capsule take 2 capsules monthly Oral [...] evening Oral 1 Taking Vitamin D (Ergocalciferol) 13852 UNIT Capsule Oral Taking Symbicort 80-4.5 MCG/ACT Aerosol inhale 2 puffs by inhalation route 2 times per day in the morning and evening Inhalation 2 Taking Melatonin 10 MG Capsule take 1 capsule by oral route once Oral 1 Taking cyanocobalamin (vitamin B-12) 5,000 mcg capsule take 1 capsule by oral route once oral 1 , Notes to Pharmacist: *Reorder from [employer] for eRx and Interaction Alerts*Taking valACYclovir HCl [...] Months * Billing Information: * Visit Code: 67513 Office Visit, Est Pt., Level 4. * Procedure Codes: G2211 Complex e/m visit add on. * Sign off status: Completed true * Provider: Ever FUENTES MD Date: 0 04/30/2024 Generated for Sung kendall/Aroldo/Nargisitting on: 0 12/17/2024 11:54 AM CDT History and Physical Notes * HPI (History [...]
--- OUTSIDE RECORDS SUMMARY | 2024-12-17 11:54 | XMS_ITS | Encounter Summary ---
Author Organization [facility] Address [address] [place] [address] Phone Care Team Providers Care Circular Saw Filer Name Role Phone Farzana Philippe MD Primary Care Provider Elsi Torre MD Unavailable Ashyln Prince MD Unavailable [phone] Iker Contreras MD Unavailable Hang Mcfadden MD Unavailable Yonny Whitehead MD Unavailable Eric Lopez MD Unavailable [phone] Encounter Details Date Type Department Care Team (Late st Contact Info) Description 11/18/2017 Orders Only [facility] ProviderSanket MD [address] [place] [address] Social History Tobacco Use Types Packs/Day Years Used Date Smoking Tobacco: Never Smokeless Tobacco: Never Alcohol Use Standard Drinks/Week Comments No 0 (1 standard drink = 0.6 oz pur e alcohol) Comments No Sex and Gender Information Value Date Recorded Sex Assigned at Not on file Legal Sex Female 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 us Historical Provider LAB BLOOD ORDERABLES Gina l Result documented in this encounter Visit Diagnoses Not on filedocumented in this encounter Additional Health Concerns Infection Onset Date Last Indicated Resolved Time COVID: Suspected 09/18/2022 09/18/2022 09/18/2022 6:50 PM STUDENT DRIVING INSTRUCTOR COVID: Suspected 06/27/2023 06/27/2023 06/28/2023 3:07 AM CDT documented as of this encounter Care Teams Circular Saw Filer Relationship Specialty Start Date End Date Farzana Philippe MD [address] [facility] [address] [place] [address] PCP - General 01/04/17 [place] [address] [facility] [address] [place] [address] Rheumatology 07/02/17 12/24/23 Ashlny Prince MD [address] [facility] [address] [place] [address] Obstetrics and Gynecology 07/15/17 Iker Contreras MD [address] [place] [address] Medical Oncology 07/15/17 05/12/20 Hang Mcfadden MD [address] [place] [address] Radiation Oncology 07/15/17 Yonny Whitehead MD [address] [place] [address] Medical Oncologist/Hematologis t Hematology 05/13/20 Eric Lopez MD [address] [place] [address] Consulting Physician Surgical Oncology 12/18/23 documented as of this encounter
--- OUTSIDE RECORDS SUMMARY | 2024-12-17 11:54 | XMS_ITS | Clinical Summary ---
Author Organization [facility] Address [facility] [place] [address] Care Team Providers Care Recruiting Specialist Name Role Phone Farzana Philippe MD Primary Care Provider [phone] Yonny Whitehead MD Unavailable [facility] Unavailable [phone] Allergies Active Allergy Reactions Criticality Noted Date [...] times daily. Active vitamin D2, ergocalciferol, (DRISDOL) 65413 UNITS capsule Take 1 capsule by mouth [...] Comments Blood Pressure 111/59 10/12/2022 8:26 AM MASTER CONTROL SUPERVISOR Pulse 73 10/12/2022 8:26 AM MASTER CONTROL SUPERVISOR Temperature 36.7 C (98.1 F) 10/12/2022 8:26 AM MASTER CONTROL SUPERVISOR Respiratory Rate 18 10/12/2022 8:26 AM MASTER CONTROL SUPERVISOR Oxygen Saturation 99% 10/12/2022 9:12 AM MASTER CONTROL SUPERVISOR Inhaled Oxygen Concentration - - Weight 81.4 kg (179 lb 7.3 oz) 10/11/2022 9:49 A M MASTER CONTROL SUPERVISOR Height 160 cm (5' 3 ) 10/11/2022 9:49 AM MASTER CONTROL SUPERVISOR Body Mass Index 31.79 10/11/2022 9:49 AM MASTER CONTROL SUPERVISOR Plan of Treatment Health Maintenance Due Date [...] Harrison mcgowan, Billy Mccullough RN Insurance MEDICARE [facility] Care Teams Recruiting Specialist Relationship Specialty Start Date End Date Farzana Philippe MD [address] [id number] PCP - General INTERNAL MEDICINE 07/23/22 Yonny Whitehead MD [address] [place] [address] HEMATOLOGY/ONCOLOGY 09/18/22 Nell Veronica NP [address] [address] NURSE PRACTITIONER ADULT HEALTH 09/20/22
--- OUTSIDE RECORDS SUMMARY | 2024-12-17 11:55 | XMS_ITS ---
Author Organization [facility] Address [address] [facility] [address] [place] [address] Care Team Providers Care Director Product Safety Name Role Phone Farzana Philippe MD Primary Care Provider Melecio FuentesRachelle Unavailable [phone] Allergies Allergen (clinical drug ingredient) Drug/Non Drug [...] date:10/28/2024 08:30:44 AM Interpretation:Lab Result Generalized Performing Lab:[facility] , [address] [place] [address]. [facility] [address] Notes/Report: Sodium 142 135-145 mmol/L Plasma Potassium [...] oral route once oral 1 *Reorder from [facility] for eRx and Interaction Alerts* Active Melatonin [...] 1 Active Vitamin D (Ergocalciferol) 1.25 MG (54765 UT) take 2 capsules monthly Oral Active [...] Culturelle - daily oral *Pick strength-form from [facility] for eRX* Active Albuterol Sulfate HFA 108 [...] oral route once oral 1 *Reorder from [facility] for eRx and Interaction Alerts* Active Nucala 100 MG as directed Subcutaneous Active Encounters Encounter Location Date Provider Diagnosis [facility] [address] [facility] [address] [place] [address] 10/27/2024 Rachelle Fuentes Rheumatoid arthritis without rheumatoid [...] AM, [address], [place], [address], Progress Notes * Jody KIM KDOB:[birth year] (74 yo F)Acc No.[id number]:10/27/2024 Progress Notes Patient: Jina Jody GAVIRIA Provider: Ever FUENTES MD :1950 A ge:74 Y S ex:Female Date:10/27/2024 Address:[address] [place] [address] , [facility] Pcp:Farzana Philippe MD Subjective: * Chief Complaints: [...] History: * Surgical History: H ysterectomy: 1983; 7103-54-85Bphw surgery; 5494-52-76Lqykm removal: right; 0978-13-18jtza stripping; 4359-27-40ytshiet lobectomy, Date of Procedure: 1992; 9788-62-45Bza Surgery; 5620-12-07Kgbx surgery; 0975-61-30Sirb Ligation; 5174-25-45Ejeimjtgde, left breast; 3700-05-48fapnrivimcfzi; 2023-07-24 * Hospitalization/Major Diagno stic Procedure: * [...] 1 , Notes to Pharmacist: *Reorder from [facility] for eRx and Interaction Alerts*Magnesium 250 MG Tablet take 1 tablet by oral route once Oral 1 Flonase Allergy Relief 50 MCG/ACT Suspension - Nasal Albuterol Sulfate HFA 108 (90 Base) MCG/ACT Aerosol Solution 2 puffs QID prn Inhalation Culturelle - daily oral , Notes to Pharmacist: *Pick strength-form from [facility] for eRX*Gabapentin 600 MG Tablet take 1 tablet (600 mg) by oral route 3 times per day Oral 3 Zolpidem Tartrate 10 MG Tablet take 1 tablet (10 mg) by oral route once daily at bedtime Oral 1 Loratadine 10 MG Tablet take 1 tablet (10 mg) by oral route once daily Oral 1 Vitamin D (Ergocalciferol) 1.25 MG (44861 UT) Capsule take 2 capsules monthly Oral [...] 1 , Notes to Pharmacist: *Reorder from [facility] for eRx and Interaction Alerts*valACYclovir [...] 1 , Notes to Pharmacist: *Reorder from [facility] for eRx and Interaction Alerts*Taking Magnesium 250 MG Tablet take 1 tablet by oral route once Oral 1 Taking Flonase Allergy Relief 50 MCG/ACT Suspension - Nasal Taking Albuterol Sulfate HFA 108 (90 Base) MCG/ACT Aerosol Solution 2 puffs QID prn Inhalation Taking Culturelle - daily oral , Notes to Pharmacist: *Pick strength-form from [facility] for eRX*Taking Gabapentin 600 MG Tablet [...] 1 Taking Vitamin D (Ergocalciferol) 1.25 MG (06102 UT) Capsule take 2 capsules monthly Oral [...] 1 , Notes to Pharmacist: *Reorder from [facility] for eRx and Interaction Alerts*Taking valACYclovir [...] Months * Billing Information: * Visit Code: 67280 Office Visit, Est Pt., Level 4. * Procedure Codes: G2211 Complex e/m visit add on. Images * PatientLetter 10/28/2024 08: 30:45 * MANAGER CPA Sign off status: Completed true * Provider: Ever FUENTES MD Date: 0 10/27/2024 Generated for Sung kendall/Aroldo/Nargisitting on: 0 12/17/2024 11:55 AM CDT History and Physical Notes * [...]
--- OUTSIDE RECORDS SUMMARY | 2024-12-17 11:55 | XMS_ITS | Continuity of Care Document ---
Author Organization [email or web address] Address [address] [facility] [address] [place] [address] Phone Care Team Providers Care Active Directory Systems Administrator Name Role Phone Kevyn Benton MD Unavailable [...] Diagnoses Date Provider Providers Copied on Encounter [facility], [address], [place], [place], [address], [place] tel:[phone] SEC Anupam GOMEZ Professional No Information 9 Chetan Bagley. [address], [place], [place], [address], [place]. tel:[phone] [facility], [address] [place] [address] [address], [place], [place], [address], [place] tel:[phone] SEC Anupam GOMEZ Professional No Information Apr-0 9 Chetan Bagley. [address] [facility], [place], [place], [address], [place]. tel:[phone] Specialist: [place], [address] [facility] [address], [place], [address]. tel:[phone] [facility], [address] [place] [address] [address], [place], [place], [address], [place] tel:[phone] SEC Anupam GOMEZ Professional 6 month Complete (chief complaint) High risk medication useKeratoconj unctivitis siccaAge-rela jose miguel nuclear cataract, bilateralOpti c cupping of both eyes Oct-2 8 Chetan Bagley. [address] [facility], [place], [place], [address], [place]. tel:[phone] Specialist: Elsi Torre MD, [address] [facility], [address], [place], [address]. tel:[phone] ring Provider: Cayla Angelo, [address] [facility], [place], [address]. tel:[phone] [facility], [address] [place] [address] [address], [place], [place], [address], [place] tel:[phone] SEC [facility] No Information Aug-2 8 Syd Montes. [address] [facility] [address], [place], [address], [place]. tel:[phone] Office/outpa tient Visit, Est [facility], [address] [place] [address] [address], [place], [place], [address], [place] tel:[phone] SEC Anupam GOMEZ Professional plaquenil check (chief complaint) Other senior care drug therapy 8 Petey Kulkarni. [address] [place], [place], [facility], [place]. tel:[phone] Referring Provider: Cayla Angelo, [address] [place] [address], [address]. tel:[phone] [facility], [address], [place], [place], [address], [place] tel:[phone] SEC Anupam GOMEZ Professional Complete Exam (chief complaint) Other keno terminal operator drug therapyAge-re lated nuclear cataract, bilateralDry eye syndrome of bilateral lacrimal glands 7 Petey Kulkarni. [address] [place], [address], [place]. tel:[phone] Referring Provider: Ari Dutta, [address] [place], [address]. tel:[phone] [facility], [address], [place], [place], [address], [place] tel:[phone] SEC [facility] No Information 7 Petey Kulkarni. [address] [place], [address], . tel:[phone] Office/outpa tient Visit, Est [facility], [address], [place], [place], [address], [place] tel:[phone] SEC Anupam GOMEZ Professional F/u exam, Plaquenil therapy (chief complaint) Other senior care drug therapyPuncta te keratitis of both eyesDry eye syndrome of right lacrimal glandDry eye syndrome of left lacrimal gland Nov- 6 Mac Chapman. [address] [facility], [place], [place], [address], [place]. tel:[phone] Referring Provider: Ari Wankum A, [address], [place], [address]. tel:[phone] [facility], [address] [place] [address] [address], [place], [place], [address], tel:[phone] SEC [place] Professional F/u exam, Rheumatoid arthritis (chief complaint) No Information 6 Mac Chapman. [address], [place], [place], [address], [place]. tel:[phone] Referring Provider: Ariguido Laceyjayeshmakenna Dutta, [address], [place], [address]. tel:[phone] Office/outpa tient Visit, [facility], [address] [place] [address] [address], [place], [place], [address], tel:[phone] SEC Anupam [place] Professional Blurry vision (chief complaint) No Information 5 Mac Chapman. [address], [place], [address], . tel:[phone] Referring Provider: Ari Hallmakenna Dutta, [address], [place], [address]. tel:[phone] Office/outpa tient Visit, [facility], [address] [place] [address] [address], [place], [place], [address], [place] tel:[phone] SEC Anupam [place] Professional Dry eyes (chief complaint)F /u exam, Plaquenil therapy (chief complaint) No Information 0 4 Mac Chapman. [address], [place], [place], [address], [place]. tel:[phone] Referring Provider: Ari Dutta, [address], [place], [address]. tel:[phone] Office/outpa tient Visit, [facility], [address], [place], [place], [address], tel:[phone] SEC Anupam GOMEZ Professional 2 month check after starting restasis (chief complaint) No Information 4 Abhijitingris Chapman. [address], [place], [place], [address], . tel:[phone] Referring Provider: Ari Dutta, [address] [place] [place], [address]. [phone] [facility], [address], [place], [place], [address], tel:[phone] SEC Anupam GOMEZ Professional irritation (chief complaint) No Information 4 Mac Chapman. [address] [email or web address] [address], [address], [place], [place], [address], . tel:[phone] Referring Provider: Ari Dutta, [address] [place], [address]. [phone] Family History Family Member Type Diagnosis Age At Onset Problem (finding) Family history of Stoma ch cancer Sister Problem (finding) glaucoma Problem (finding) Family history of Breas t Problem (finding) Family history of malignant neoplasm of ovary Close relative Problem (finding) hypertension Payers Payer name Insurance type Covered alliance party ID Authoriza tion(s) [facility] Commercial CI [id number] Social History Type Description Quantity Date Captured [...] Educational material provided Re lated to Other keno terminal operator drug therapy Impression/Plan Return in 6 months w heavenly Angelo M.D. for follow up exam. Related to Other keno terminal operator drug therapy Other keno terminal operator drug therapy - Educational material provided Related to Other keno terminal operator drug therapy Impression/Plan - Co ntinue Restasis BID OU, refills not needed at this time. Instructed patient to use refresh PM QHS OU. Related to Dry eye syndrome of bilateral lacrimal glands Impression/Plan - Hi story of Plaquenil use for 5 years, 200 mg BID PO. No signs of hydroxychloroquine toxicity, OK to continue medication. 10-2 Visual barnett are poor reliability, within normal range. Return to clinic in 6 months for Plaquenil check with OCT MAC or sooner with problems. Plaquenil letter sent to Dr Farznaa Philippe. Related to Other senior care drug therapy Follow up - Return i n 6 months with Cayla Angelo M.D. for Plaquenil follow up with OCT MAC Related to Other senior care drug therapy Impression/Plan - Di scussed cataracts with pt and treatment options. pt also understands at this time vision does not qualify to have CE with insurance coverage, will monitor. Related to Age-related nuclear cataract, bilateral Impression/Plan - No signs of hydroxychloroquine toxicity, OK to continue medication. Normal IOP with optic disc cupping. Stop Restasis, Start Xiidra BID OU. Called into [facility]. Use in-home humidifier during winter months for dry eyes relief. Rx for glasses given. Return to clinic in 6 months for Plaquenil check with 24-2 visual barnett or sooner with any problems. Follow up - Return i n 2 months with Ari Watts M.D. for follow up exam Other keno terminal operator drug therapy - Educational material given Related to Other keno terminal operator drug therapy Impression/Plan - No signs of hydroxychloroquine toxicity, OK to continue medication. Normal visual barnett OU. Dry eyes and SPK discussed, restart Restasis BID OU. Bilateral cataracts discussed no treatment needed at this time. Return to clinic in 6 months for Plaquenil follow up or sooner with any problems. Follow up - Return i n 6 months with Ari Watts M.D. for follow up exam. Other keno terminal operator drug therapy - Educational material given Related to Other senior care drug therapy - No signs of toxici ty, OK to continue medication. No treatment for cataracs recommended at this time. Discussed NICOL and the use of Restasis. RTC in 6 months for plaq check and VF. Educational materials provided:about today's exam. Medication instillation reviewed and understood. Related to See list of assessments above - RTC in 6 months for plaq check and VF Related to See list of assessments above NICOL-helped with rest asis - restasis bid Educational materials provided to patient. Related to TEAR FILM INSUFFIC NOS - [id number] hydroxychloroq uin Related to TEAR FILM INSUFFIC NOS General plan -SENILE NUCLEAR CATARACT -TEAR FILM INSUFFIC NOS -HIGH-RISK RX NEC EXAM - Discussed plaquenil and the affects on vision. Discussed dry eyes and the use of a humidifier and ATs for relief. Rx for glasses provided to pt today. Baseline VF reviewed - no toxicity. Discussed signs of ocular migraines. Discussed using Restasis BID OU. Rx for Restasis sent to [facility]. RTC in 2 months after starting Restasis. Educational materials provided:about today's exam. Related to See impression: general plan - RTC in [address] starting Restasis Related to See impression: general plan Assessments Type Assessment Date No Information Patient Care Teams Name Effective Dates (start - stop) Status Members No Information
--- OUTSIDE RECORDS SUMMARY | 2024-12-17 11:55 | XMS_ITS ---
Author Organization [facility] Address [address] [facility] [address] [place] [address] Care Team Providers Care Web Developer Name Role Phone Farzana Philippe MD Primary Care Provider Melecio FuentesOlgag Unavailable [phone] Allergies Allergen (clinical drug ingredient) Drug/Non Drug [...] date:07/30/2024 09:42:15 PM Interpretation:Lab Result Generalized Performing Lab:[facility] , [address] [place] [address]. [facility] [address] Notes/Report: WBC 5.8 3.8-9.9 K/cumm Hgb 14.0 [...] date:07/30/2024 09:42:15 PM Interpretation:Lab Result Generalized Performing Lab:[facility] , [address] [place] [address]. [place] [address] Notes/Report: Sodium 143 135-145 mmol/L Plasma Potassium [...] oral route once oral 1 *Reorder from [employer] for eRx and Interaction Alerts* Active Restasis [...] 1 Active Vitamin D (Ergocalciferol) 1.25 MG (92764 UT) take 2 capsules monthly Oral Active Flonase Allergy Relief 50 MCG/ACT - Nasal Active Albuterol Sulfate HFA 108 (90 Base) MCG/ACT 2 puffs QID prn Inhalation 05/03/2010 Active Culturelle - daily oral *Pick strength-form from [employer] for eRX* Active OCUVITE ADULT 50 PLUS 250 mg (90 mg-160 mg) take 1 capsule by oral route once oral 1 *Reorder from [employer] for eRx and Interaction Alerts* Active Magnesium 250 MG take 1 tablet by oral route once Oral 1 Active Problems Problem Type SNOMED Code ICD Code Onset Dates Problem Status W/U Status Risk Notes Problem Personal history of primary malignant neoplasm of breast (864594838) History of breast cancer (Z85.3) Active confirmed Vital Signs Temperature 97.3 degrees Fahrenheit 07/30/20 Blood pressure systolic 124 mm Hg 07/30/20 Blood pressure diastolic 74 mm Hg 024 Heart Rate 76 /min 07/30/2024 Height 63 in 07/30/2024 Weight 191.6 lbs 07/30/2024 BMI 33.94 kg/m2 07/30/2024 Oximetry 97 % 07/30/2024 Height-cm 160.02 cm 07/30/2024 Weight-kg 86.89 kg 07/30/2024 Encounters Encounter Location Date Provider Diagnosis [facility] [address] [facility] [address] [place] [address] 07/30/2024 Rachelle Fuentes Rheumatoid arthritis without rheumatoid [...] 01/28 10:45:00 AM, [address] , [facility] [address], [place], [address], Progress Notes * Jody KIM KDOB:[birth year] (74 yo F)Acc No.[id number]:07/30/2024 Progress Notes Patient: Jina Jody GAVIRIA K Provider: Ever FUENTES MD :1950 A ge:74 Y S ex:Female Date:07/30/2024 Address:[address] [place] [address], [place] [address] Pcp:Farzana Philippe MD Subjective: * Chief Complaints: [...] History: * Surgical History: H ysterectomy: 1983; 8558-93-86Zcxz surgery; 9249-70-73Kfheg removal: right; 6508-82-48kkkm stripping; 2673-23-52zsxjkgh lobectomy, Date of Procedure: 1992; 1734-67-78Nxl Surgery; 5971-09-46Nsrb surgery; 0940-82-02Zyyi Ligation; 4535-36-49Wutsoyezaz, left breast; 4878-83-31ntjmhetnllggk; 2023-07-24 * Hospitalization/Major Diagno stic Procedure: * [...] 1 , Notes to Pharmacist: *Reorder from [employer] for eRx and Interaction Alerts*Magnesium 250 MG Tablet take 1 tablet by oral route once Oral 1 Flonase Allergy Relief 50 MCG/ACT Suspension - Nasal Albuterol Sulfate HFA 108 (90 Base) MCG/ACT Aerosol Solution 2 puffs QID prn Inhalation Culturelle - daily oral , Notes to Pharmacist: *Pick strength-form from [employer] for eRX*Gabapentin 600 MG Tablet take 1 tablet (600 mg) by oral route 3 times per day Oral 3 Zolpidem Tartrate 10 MG Tablet take 1 tablet (10 mg) by oral route once daily at bedtime Oral 1 Loratadine 10 MG Tablet take 1 tablet (10 mg) by oral route once daily Oral 1 Vitamin D (Ergocalciferol) 1.25 MG (96527 UT) Capsule take 2 capsules monthly Oral [...] 1 , Notes to Pharmacist: *Reorder from [facility] for eRx and Interaction Alerts*valACYclovir HCl 500 MG Tablet take 2 tablets (1,000 mg) by oral route once daily Oral 1 Taking OCUVITE ADULT 50 PLUS 250 mg (90 mg-160 mg) capsule take 1 capsule by oral route once oral 1 , Notes to Pharmacist: *Reorder from [facility] for eRx and Interaction Alerts*Taking Magnesium 250 MG Tablet take 1 tablet by oral route once Oral 1 Taking Flonase Allergy Relief 50 MCG/ACT Suspension - Nasal Taking Albuterol Sulfate HFA 108 (90 Base) MCG/ACT Aerosol Solution 2 puffs QID prn Inhalation Taking Culturelle - daily oral , Notes to Pharmacist: *Pick strength-form from [facility] for eRX*Taking Gabapentin 600 MG Tablet take 1 tablet (600 mg) by oral route 3 times per day Oral 3 Taking Zolpidem Tartrate 10 MG Tablet take 1 tablet (10 mg) by oral route once daily at bedtime Oral 1 Taking Loratadine 10 MG Tablet take 1 tablet (10 mg) by oral route once daily Oral 1 Taking Vitamin D (Ergocalciferol) 1.25 MG (99830 UT) Capsule take 2 capsules monthly Oral [...] 1 , Notes to Pharmacist: *Reorder from [facility] for eRx and Interaction Alerts*Taking valACYclovir HCl 500 MG Tablet take 2 tablets (1,000 mg) by oral route once daily Oral 1 DiscontinuedFurosemide 20 MG Tablet take 1 tablet (20 mg) by oral route once daily Oral 1 Vitamin D (Ergocalciferol) 15086 UNIT Capsule Oral Medication List reviewed and reconciled with the patientDiscontinued Furosemide 20 MG Tablet take 1 tablet (20 mg) by oral route once daily Oral 1 Discontinued Vitamin D (Ergocalciferol) 25905 UNIT Capsule Oral Medication List reviewed and [...] Months * Billing Information: * Visit Code: 47323 Office Visit, Est Pt., Level 4. * Procedure Codes: G2211 Complex e/m visit add on. * Sign off status: Completed true * Provider: Ever FUENTES MD Date: 1 Generated for Sung kendall/Aroldo/Nargisitting on: 0 12/17/2024 [...]
--- OUTSIDE RECORDS SUMMARY | 2024-12-17 11:55 | XMS_ITS | Encounter Summary ---
Author Organization [facility] Address [address] [place] [address] Care Team Providers Care Casserole Preparer Name Role Phone Farzana Philippe MD Primary Care Provider Ashlyn Prince MD Unavailable Hang Mcfadden MD Unavailable [phone] Yonny Whitehead MD Unavailable Eric Lopez MD Unavailable [phone] Encounter Details Date Type Department Care Team (Late st Contact Info) Description 12/03/2024 Results Follow-Up [facility] Primary Care at [facility] [address] [facility] [address] [place] [phone] Farzana Philippe MD [address] [facility] [address], [place] [address] Social History Tobacco Use Types Packs/Day Years [...] on file 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 Gender Identity Not on file Sexual Orientation Not on file documented as of this encounter Plan of Treatment Not on file documented as of this encounter Visit Diagnoses Not on filedocumented in this encounter Care Teams Casserole Preparer Relationship Specialty Start Date End Date Farzana Philippe MD [address] [facility] [address], [place] [address] PCP - General 01/04/17 Ashlyn Prince MD [address] [facility] [address], [place] [address] Obstetrics and Gynecology 07/15/17 Hang Mcfadden MD [address] [facility] [address], [place] [address] Radiation Oncology 07/15/17 Yonny Whitehead MD [address] [place] [address] Medical Oncologist/Order Picker/Assembler Hematology 05/13/20 Eric Lopez MD [address] [facility] [address] [place] [address] Consulting Physician Surgical Oncology 12/18/23 documented as of this encounter
--- OUTSIDE RECORDS SUMMARY | 2024-12-17 11:55 | XMS_ITS | Clinical Summary ---
Author Organization [facility] Address [address] [place] [address] Care Team Providers Care Sweatband Maker Name Role Phone Torito Albrecht MD Unavailable Aleida Forde MD Primary Care Provider Source Comments [facility],non-owned Affiliates and Associated Physician Practices is amultiple site organization consisting of ambulatory clinics and hospital sitesin [place], [place], [place] and [place]. This disclosure is being madepursuant to the Care Everywhere program and may not contain all information available regarding this patient. Last updated 18.[facility] Allergies Active Allergy Reactions Criticality Noted [...] mg by mouth every 12 hours. Active [place]-3 Fatty Acids (FISH OIL) 500 MG CAPSIndications:Nont [...] complete this topic MENINGOCOCCAL (Group B) VACCINE SHARED DECISION-MAKING Aged Out No longer eligible based on patient's age to complete this topic MENINGOCOCCAL GROUPS A/C/Y/W VACCINE Aged Out No longer eligible based on patient's age to complete this topic Care Teams Sweatband Maker Relationship Specialty Start Date End Date Aleida Forde MD [address] [phone] PCP - General 05/11/21 Torito Albrecht MD Orthopedic Surgery 07/06/13
--- OUTSIDE RECORDS SUMMARY | 2024-12-17 11:55 | XMS_ITS | Patient Health Summary ---
Author Organization [facility] Address [address] [facility] [place] [address] Care Team Providers Care Tandem Mill Operator Name Role Phone Torito Albrecht MD Unavailable Aleida Forde MD Primary Care Provider Note from [facility],non-owned Affiliates and Associated Physician Practices is amultiple site organization consisting of ambulatory clinics and hospital sitesin [place], [place], [place] and [place]. This disclosure is being madepursuant to the Care Everywhere program and may not contain all information available regarding this patient. Last updated 18.[facility] Allergies * Sulfa Drugs Medications * Be [...] mg by mouth every 12 hours. * Clover-3 Fatty Acids (FISH OIL) 500 MG CAPS [...] AM CDT) Case Report Dermatopathology Report Case: [id number] Authorizing Provider: Miky Klein Jr., MD Collected: 05/10/2021 12:00 AM Ordering Location: [facility] Lab Received: 05/11/2021 12:59 PM Pathologist: [...] specimen consists of a shave biopsy measuring [id number]. Jar 0. 3:00 PM CDT DERMATOPATHOLOGY LABORATORY [...] characteristic determined by the Dermatopathology Laboratory at [facility], directed by Dr. Polo Plasencia. These tests need not be, and therefore are not, approved by the [place] Food and Drug Administration. The tests are used for clinical purposes. Billing Codes Specimen Charges Stain Charges 82833 1 3:00 PM CDT DERMATOPATHOLOGY LABORATORY Embedded Images 3:00 PM CDT DERMATOPATHOLOGY LABORATORY Pathology/Cytolog y TISSUE SPECIMEN FROM SKIN / Unknown 05/10/2021 05/11/2021 12:59 PM CDT Miky Klein Jr., MD LAB - PATHOLOGY /CYTOLOGY ORDERABLES DERMATOPATHOLOGY LABORATORY [facility] - Department of Dermatology [address] [phone] * IMAGING RADIOLOGY XRAY RESULTS ORDER (12/18/2019 [...] CDT) Case Report Surgical Pathology Report Case: [id number] Authorizing Provider: Tommy Bender DPM Collected: 12/17/2019 01:44 PM Ordering Location: Received: 12/18/2019 01:15 PM Pathologist: Zhang Jay MD Specimen: Tissue, ulceration left foot 12/21/2019 3:47 PM CDT [facility] Final Diagnosis Ulceration, left foot, excision: - Hyperplastic squamous epithelium and underlying stroma with ulceration, granulation tissue, and abscess formation SD/ns 12/21/2019 3:47 PM T [facility] Clinical History Ulceration of left foot. 12/21/2019 3:47 PM CDT [facility] Gross Description Received in a container [...] Sectioning displays a dukes-leger, friable cut surface. Paste Worker sections are submitted as follows: A1 - ulcer A2 - tips of both ends A3 - smaller piece, submitted entirely JS/ns 12/21/2019 3:47 PM CDT [facility] Microscopic Description The inflammation is exuberant. There is no evidence of dysplasia or malignancy. SD/ns 12/21/2019 3:47 PM CDT [facility] Disclaimer All histochemical and/or immunohistochemical results are interpreted with controls that demonstrate appropriate staining reactions before reporting results. Note on use of immunocytochemistry reagents: This test was developed and its performance characteristic determined by [facility], Department of Laboratory Medicine. It has not [...] interpreted with caution. 12/21/2019 3:47 PM CDT [facility] Embedded Images 12/21/2019 3:47 PM CDT [facility] Pathology/Cytolo gy TISSUE SPECIMEN / Unknown 12/17/2019 1:44 PM CDT 12/18/2019 1:15 PM CDT Tommy Bender DPM LAB - PATHOLOGY/CYTO LOGY ORDERABLES [facility] [address] [place] [address] * Peripheral Nerve Block (12/17/2019 [...] (ABNORMAL) C-REACTIVE PROTEIN SENSITIVE (12/05/2009 3:40 PM CRITICAL CARE REGISTERED NURSE) C-Reactive Protein High Sensitivity 0.737(H) 0.000 - 0.500 mg/dl [facility] BLOOD SPECIMEN / Unknown 12/05/2009 3:40 PM CRITICAL CARE REGISTERED NURSE Jaylon Carlson III, MD LAB - CHEMISTRY PETAR HERNANDEZ [facility] [address] [place] [address] * SED RATE WESTERGREN AUTO (12/05/2009 3:40 PM CRITICAL CARE REGISTERED NURSE) Erythrocyte Sedimentation Rate Westergren 13 0 - 30 mm/Hr [facility] Hematocrit 41.8 37.0 - 47.0 % [facility] BLOOD SPECIMEN / Unknown 12/05/2009 3:40 PM CRITICAL CARE REGISTERED NURSE Jaylon Carlson III, MD LAB - HEMATOLOGY ALENA HOOKER Performing Organization Address [facility] Co de Phone Number [facility] [address] [place] [address] * (ABNORMAL) CBC W AUTO DIFFERENTIAL (12/05/2009 3:40 PM CRITICAL CARE REGISTERED NURSE) WBC 4.8 4.0 - 10.0 K/CUMM [facility] RBC 4.72 3.80 - 5.80 M/CUMM [facility] Hemoglobin 14.1 12.0 - 16.0 gm/dl [facility] Hematocrit 41.8 37.0 - 47.0 % [facility] MCV 88.6 80.0 - 100.0 fl [facility] MCH 29.9 26.0 - 34.0 pg [facility] MCHC 33.7 31.0 - 37.0 gm/dl [facility] Platelet Count 164 150 - 400 K/CUMM [facility] RDW 13.9 11.5 - 14.5 % [facility] Granulocytes % 48.8(L) 50 - 70 % [facility] Lymphocytes % 35.4 20 - 40 % [facility] Monocytes % 10.2 0 - 12 % [facility] Eosinophils % 4.8 0 - 5 % [facility] Basophils % 0.6 0 - 2 % [facility] Granulocytes Absolute 2.34 2.00 - 7.00 x1000/cmm [facility] Lymphocytes Absolute 1.70 0.80 - 4.00 x1000/cmm [facility] Monocytes Absolute 0.49 0.00 - 1.20 x1000/cmm [facility] Eosinophils Absolute 0.23 0.00 - 0.50 x1000/cmm [facility] Basophils Absolute 0.03 0.00 - 0.20 x1000/cmm [facility] BLOOD SPECIMEN / Unknown 12/05/2009 3:40 PM CRITICAL CARE REGISTERED NURSE Jaylon Carlson III, MD LAB - HEMATOLOGY ORD ERABLES Performing Organization Address [facility] Co de Phone Number [facility] [address] [place] [address] * (ABNORMAL) COMPREHENSIVE METABOLIC PANEL (12/05/2009 3:40 PM CRITICAL CARE REGISTERED NURSE) Sodium 145 137 - 145 mmol/L [facility] Potassium 4.0 3.6 - 5.0 mmol/L [facility] Chloride 102 98 - 107 mmol/L [facility] BUN 11 7 - 17 mg/dl [facility] Creatinine 0.79 0.52 - 1.04 mg/dl [facility] Glucose 62(L) 65 - 105 mg/dl [facility] Calcium 9.8 8.4 - 10.2 mg/dl [facility] Alkaline Phosphatase 85 38 - 126 U/L [facility] AST 54(H) 8 - 39 U/L [facility] Bilirubin Total 0.3 0.2 - 1.3 mg/dl [facility] Protein Total 8.4(H) 6.3 - 8.2 gm/dl [facility] Albumin 4.3 3.9 - 5.0 gm/dl [facility] CO2 32(H) 22 - 30 mmol/L [facility] ALT 67(H) 9 - 52 U/L [facility] eGFR by MDRD 74 >60 mL/min/1.7 3m2 [facility] Comment eGFR [facility] Comment: The eGFR does not apply to patients who are younger than 18 or older than 70. BLOOD SPECIMEN / Unknown 12/05/2009 3:40 PM CRITICAL CARE REGISTERED NURSE Jaylon Carlson III, MD LAB - CHEMISTRY PETAR HERNANDEZ Performing Organization Address [facility] Co de Phone Number [facility] [address] [place] [address] * GROSS + MICRO EXAM (04/08/2008 5:04 [...] There are no luminal masses or lesions. Paste Worker sections are submitted in cassettes A through [...] evidence of active inflammation or hemorrhage GM/na Tree Surgeon na Pathologist Pamella Alvarado M.D. Snomed. 04/12/2008 1514 <1> CPT code 22071 MISCELLANEOUS SAMPLES / Unknown 04/08/2008 5:04 PM CDT 04/10/2008 8:08 AM CDT Historical Provider LAB - PATHOLOGY/C YTOLOGY ORDERABLES Care Teams Tandem Mill Operator Relationship Specialty Start Date End Date Aleida Forde MD [address] [facility] [address] [place] [address] PCP - General 05/11/21 Torito Albrecht MD Orthopedic Surgery 07/06/13
--- OUTSIDE RECORDS SUMMARY | 2024-12-17 11:55 | XMS_ITS ---
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 Malignant neoplasm of upper- inner quadrant of right breast in female, estrogen receptor negative 02/10/2013 Overview (01/10/2017): MAL JOEY BREAST UP-INNER Rheumatoid arthritis involving multiple sites Overview (02/04/2018): +RF, CCP, ALIN neg HLA-B27 [...] HTN, increase blood glucose and osteopenia with mcfp use 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 Patient is to continue [...] Torre Assessment & Plan (10/21/2017 1:58 PM SALES AND SERVICE ASSOCIATE): cdai = 21 on plaquenil and leflunomide. 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 EKG NSR- RBBB present in 2019 Right calf pain 12/11/2021 10/27/2024 Assessment & Plan (12/11/2021 9:09 AM SALES AND SERVICE ASSOCIATE): New Pinpoint in left calf mid leg- medial Venous doppler today evaluate for DVT No finding- address edema and varicose veins Acute sinusitis 10/08/2019 03/22/2021 Assessment & Plan (07/08/2020 12:41 PM CDT): Rest, fluids antibiotics Assessment & Plan (10/08/2019 10:07 AM SALES AND SERVICE ASSOCIATE): Rest fluids start Augmentin Flonase [id number] We discussed referral to allergy for control [...] 11/19/2018 Assessment & Plan (10/14/2018 1:14 PM SALES AND SERVICE ASSOCIATE): Check for pneumonia-cxr good lung sounds. + [...] 11/19/2018 Assessment & Plan (10/14/2018 1:14 PM SALES AND SERVICE ASSOCIATE): Try 100mg gabapentin during the day , 300 at night for pain Continue with pain management. Assessment & Plan (10/21/2017 2:01 PM SALES AND SERVICE ASSOCIATE): bilat shoulder and neck pain. Suspect degenerative [...] provided. Assessment & Plan (10/08/2019 10:04 AM SALES AND SERVICE ASSOCIATE): BMI Follow-up includes: education provided. Assessment & Plan (06/02/2019 4:39 PM CDT): BMI Follow-up includes: education provided. Assessment & Plan (05/13/2019 3:38 PM CDT): BMI Follow-up includes: education provided. Assessment & Plan (03/19/2019 4:03 PM CDT): BMI Follow-up includes: education provided. Assessment & Plan (10/14/2018 1:11 PM SALES AND SERVICE ASSOCIATE): BMI Follow-up includes: education provided. Assessment & Plan (10/02/2018 8:36 AM SALES AND SERVICE ASSOCIATE): BMI Follow-up includes: education provided. Assessment & [...]
--- OUTSIDE RECORDS SUMMARY | 2024-12-17 11:55 | XMS_ITS | Referral Summary ---
Author Organization [facility] Address [address] [place] [address] Care Team Providers Care Ware Carrier Name Role Phone Torito Albrecht MD Unavailable Aleida Forde MD Primary Care Provider Source Comments [facility],non-owned Affiliates and Associated Physician Practices is amultiple site organization consisting of ambulatory clinics and hospital sitesin [place], [place], [place] and [place]. This disclosure is being madepursuant to the Care Everywhere program and may not contain all information available regarding this patient. Last updated 18.[facility] Allergies Active Allergy Reactions Criticality Noted Date [...] mg by mouth every 12 hours. Active [place]-3 Fatty Acids (FISH OIL) 500 MG CAPSIndications:Nont [...] of Treatment Not on file Care Teams Ware Carrier Relationship Specialty Start Date End Date Aleida Forde MD [address] [facility] [address] [place] [phone] PCP - General 05/11/21 Torito Albrecht MD Orthopedic Surgery 07/06/13
--- OUTSIDE RECORDS SUMMARY | 2024-12-17 11:55 | XMS_ITS | Encounter Summary ---
Author Organization [facility] Address [address] [place] [address] Care Team Providers Care Alining Inspector Name Role Phone Torito Albrecht MD Unavailable [phone] Aleida Forde MD Primary Care Provider Encounter Details Date Type Department Care Team (Late st Contact Info) Description 05/11/[address] [facility] DermPath Lab [address] [facility] [place] [id number] Miky Klein Jr., MD [address] [place] [address] Social History Tobacco Use Types Packs/Day Years [...] AM CDT) Case Report Dermatopathology Report Case: [id number] Authorizing Provider: Miky Klein Jr., MD Collected: 05/10/2021 12:00 AM Ordering Location: [facility] DermPath Lab Received: 05/11/2021 12:59 PM Pathologist: [...] specimen consists of a shave biopsy measuring [id number]. Jar 0. 3:00 PM CDT DERMATOPATHOLOGY LABORATORY [...] characteristic determined by the Dermatopathology Laboratory at [facility], directed by Dr. Polo Plasencia. These tests need not be, and therefore are not, approved by the [place] Food and Drug Administration. The tests are used for clinical purposes. Billing Codes Specimen Charges Stain Charges 38578 1 1 3:00 PM CDT DERMATOPATHOLOGY LABORATORY Embedded Images 1 3:00 PM CDT DERMATOPATHOLOGY LABORATORY Pathology/Cytolog y TISSUE SPECIMEN FROM SKIN / Unknown 05/10/2021 05/11/2021 12:59 PM CDT Miky Klein Jr., MD LAB - PATHOLOGY /CYTOLOGY ORDERABLES DERMATOPATHOLOGY LABORATORY [facility] - Department of Dermatology [facility] Medicine [address] [phone] documented in this encounter Visit Diagnoses Not on filedocumented in this encounter Care Teams Alining Inspector Relationship Specialty Start Date End Date Aleida Forde MD [address] [facility] [address] [place] [address] PCP - General 05/11/21 Torito Albrecht MD Orthopedic Surgery 07/06/13 documented as of this encounter
--- OUTSIDE RECORDS SUMMARY | 2024-12-17 11:56 | XMS_ITS | Clinical Summary ---
Author Organization [facility] Address [address] [place] [address] Care Team Providers Care Beam Warper Name Role Phone Farzana Philippe MD Primary Care Provider Ashlyn Prince MD Unavailable [phone] Hang Mcfadden MD Unavailable Yonny Whitehead MD Unavailable rEic Peck MD Unavailable [phone] Allergies Active Allergy Reactions Criticality Noted Date Comments Amoxicillin-Pot Clavulanate Rash Medium 08/06/2022 Kiwi Shortness of breath High 11/17/2020 Meperidine Unknown 01/30/2009 Sulfa (Sulfonamide Antibiotics) Itching Low Reaction: Itching, , , , Reaction: Itching, , , Sulfanilamide Itching Low Reaction: Itching, , Reaction: Itching, Sulfasalazine Unknown 01/03/2011 Medications prtyhopg-etz-mo [id number]-[id number] (CENTRUM SILVER WOMEN) 8 mg iron-400 mcg-300 [...] (250 mg total) by mouth daily Active hydroxychloroqu ine (PLAQUENIL) 200 mg tablet Take 1 tablet (200 mg total) by mouth daily 90 tablet 3 11/08/19 24 Active leflunomide (ARAVA) 20 mg tabletIndicatio ns:Rheumatoid Arthritis Take 1 tablet (20 mg total) by mouth daily 100 tablet 1 02/26/20 24 2024 Active albuterol 2.5 mg /3 mL (0.083 %) nebulizer solutionIndicat ions:Moderate persistent chronic asthma without complication Take 3 mL (2.5 mg total) by nebulization 4 (four) times a day as needed for wheezing or shortness of breath 150 mL 04/13/20 24 2024 Active Comp-Air Nebulizer Compressor device USE WITH NEBULIZER SOLUTION DIRECTED J45.909 04/13/20 24 Active fluticasone-ume clidin-vilanter (Trelegy Ellipta) 100-62.5-25 mcg inhaler Inhale 1 puff daily 60 each 11 07/22/20 24 Active mepolizumab (Nucala) 100 mg/mL auto-injector Inject 1 mL (100 mg total) under the skin every 4 (four) weeks 1 mL 11 09/02/20 24 Active UNABLE TO FIND Take 6 each by mouth daily Med Name: Balance of nature Active gabapentin (NEURONTIN) 600 mg tabletIndicatio ns: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,Ch ronic bilateral low back pain with bilateral sciatica [...] needed (cold sores) 60 tablet 2 10/27/19 Active albuterol HFA (ProAir HFA) 90 mcg/actuation inhaler Inhale 2 puffs every 4 (four) hours as needed for wheezing or shortness of breath 3 each 3 10/27/19 Active montelukast (SINGULAIR) 10 mg tablet Take 1 tablet (10 mg total) by mouth nightly 90 tablet 3 11/06/19 Active amoxicillin-cla vulanate (AUGMENTIN) 875-125 mg per tablet Take 1 tablet by mouth every 12 (twelve) hours 11/28/19 Active zolpidem (AMBIEN) 10 mg tabletIndicatio ns:Sleep-Onset Insomnia Take 1 tablet (10 mg total) by mouth nightly as needed for sleep 90 tablet 12/11/19 25 2024 Active zolpidem (AMBIEN) 10 mg tabletIndicatio ns:Sleep-Onset Insomnia Take 1 tablet (10 mg total) by mouth nightly as needed for sleep 90 tablet 11/07/19 25 2024 Discontinued Hospital, Clinic, or Other Facility Administered Medication Ordered Dose Route Frequency Start Date End Date Status ipratropium-albuteroL (DUO-NEB) 0.5-2.5 mg/3 mL nebulizer solution 3 mLIndications:Chronic Obstructive Pulmonary Disease with Bronchospasms 3 mL nebu Once (group therapist) 06/27/2023 Activ e Active Problems Problem Noted Date Diagnosed Date Ringing in ears, bilateral 06/29/2024 Sensorineural hearing loss (SNHL) of both ears 0 06/29/2024 Assessment & Plan (06/30/2024 11:19 AM CDT): Mild to moderate hearing loss, protect hearing Mass of upper inner quadrant of left breast 12/05 Chronic bilateral low back pain with bilateral s ciatica 12/11/2021 Assessment & Plan (12/11/2021 9:08 AM SKETCH ARTIST): Worse Sees pain management Increase gabapentin Edema 06/15/2021 Assessment & Plan (12/11/2021 9:06 AM SKETCH ARTIST): Chronic worse Left greater than right Restart [...] is to wear mask when raking leaves [facility] (current) use of aromatase inhibitors 11/28/2020 Localized [...] 2017 Assessment & Plan (12/11/2021 9:07 AM SKETCH ARTIST): Worse Increase gabapentin to tid 600mg Continue [...] prednisone Assessment & Plan (10/08/2019 10:05 AM SKETCH ARTIST): Stable aggravated at night when lying down. 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 Patient is to continue [...] Torre Assessment & Plan (10/21/2017 1:58 PM SKETCH ARTIST): cdai = 21 on plaquenil and leflunomide. [...] She has hx of palpiations her senior radiation therapist has retired- Dr. 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 EKG NSR- RBBB present in 2019 Right calf pain 12/11/2021 10/27/2024 Assessment & Plan (12/11/2021 9:09 AM SKETCH ARTIST): New Pinpoint in left calf mid leg- medial Venous doppler today evaluate for DVT No finding- address edema and varicose veins Acute sinusitis 10/08/2019 03/22/2021 Assessment & Plan (07/08/2020 12:41 PM CDT): Rest, fluids antibiotics Assessment & Plan (10/08/2019 10:07 AM SKETCH ARTIST): Rest fluids start Augmentin Flonase [id number] We discussed referral to allergy for control [...] 11/19/2018 Assessment & Plan (10/14/2018 1:14 PM SKETCH ARTIST): Check for pneumonia-cxr good lung sounds. + [...] 11/19/2018 Assessment & Plan (10/14/2018 1:14 PM SKETCH ARTIST): Try 100mg gabapentin during the day , 300 at night for pain Continue with pain management. Assessment & Plan (10/21/2017 2:01 PM SKETCH ARTIST): bilat shoulder and neck pain. Suspect degenerative [...] provided. Assessment & Plan (10/08/2019 10:04 AM SKETCH ARTIST): BMI Follow-up includes: education provided. Assessment & Plan (06/02/2019 4:39 PM CDT): BMI Follow-up includes: education provided. Assessment & Plan (05/13/2019 3:38 PM CDT): BMI Follow-up includes: education provided. Assessment & Plan (03/19/2019 4:03 PM CDT): BMI Follow-up includes: education provided. Assessment & Plan (10/14/2018 1:11 PM SKETCH ARTIST): BMI Follow-up includes: education provided. Assessment & Plan (10/02/2018 8:36 AM SKETCH ARTIST): BMI Follow-up includes: education provided. Assessment & [...] Encounters Date Type Department Care Team Description 12/09/2024 11:15 AM SKETCH ARTIST Office Visit [facility] Pulmonary at [address] [place] [id number] Carson Arora MD Eosinophilic asthma (Primary Dx); Peripheral eosinophilia; Rheumatoid arthritis of other site, unspecified whether rheumatoid factor present (HCC) 12/03/2024 Results Follow-Up [facility] Primary Care at [facility] [address] [facility] [address] [place] [phone] Farzana Philippe MD 12/02/2024 10:01 AM SKETCH ARTIST - 12/02/2024 11:59 PM SKETCH ARTIST Hospital Encounter [address] [address] Discharge Disposition: Discharge to home or self care 12/02/2024 10:00 AM SKETCH ARTIST - 12/02/2024 11:59 PM SKETCH ARTIST Hospital Encounter [address] [address] Bony abnormality; History of breast cancer; Bony sclerosis Discharge Disposition: Discharge to home or self care 11/12/2024 Telephone [facility] Pulmonary at [address] [place] [phone] Mary Paz LPN Nucala 10/27/2024 1:52 PM SKETCH ARTIST - 10/27/2024 11:59 PM SKETCH ARTIST Hospital Encounter [facility] [address] [place] [address] Discharge Disposition: Discharge to home or self care 10/27/2024 1:00 PM SKETCH ARTIST Lab [facility] [address] [facility] [place] [address] 10/27/2024 11:30 AM SKETCH ARTIST Office Visit [facility] Primary Care at [facility] [address] [facility] [address], [place] [address] Farzana Philippe MD Bony abnormality (Primary Dx); Rheumatoid arthritis involving multiple sites, unspecified whether rheumatoid factor present (HCC); Vitamin D deficiency; Moderate persistent asthma without complication; History of breast cancer; Bony sclerosis; 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; Chronic bilateral low back pain with bilateral sciatica 09/18/2024 9:30 AM SKETCH ARTIST Clinical Support [facility] Pulmonary at [address] [place] [phone] Carson rAora MD from Last 3 Months Immunizations Immunization Administration [...] Other Medical arm fx Hx Other Medical 2011 lump in breast Hx Other Medical 2008 sigmoidectomy Arthritis Arthritis Asthma Asthma; Comments : [facility] 08/30/2014 - Malignant neoplasm of female breast (HCC) Cancer, breast; Comments: [facility] 08/30/2014 - Hx Other Medical rheumatoid arth ritis; Comments: [facility] 08/30/2014 - Hx Other Medical thyroid lumpect coral; Comments: [facility] 08/30/2014 - Malignant neoplasm of female breast (HCC) 2011 Cancer, breast; Laterality: left Malignant neoplasm of female breast (HCC) Cancer, breast; Comments: [facility] 10/24/2015 - Rheumatoid arthritis (HCC) RA; C omments: [facility] 10/24/2015 - Osteopenia Osteopenia; Comm ents: [facility] 10/24/2015 - Tear film insufficiency Dry eyes ; Comments: [facility] 10/24/2015 - Disorder of liver Liver disease Hx Other Medical Glaucoma Hx Other Medical Intestinal Coli tis Gastric reflux Hiatal hernia Kidney stone Osteoarthritis Breast CA (HCC) Rbbb Diverticulitis S/P thyroid surgery 1992 lobectomy History of radiation therapy 2011 Lef t Breast Cancer History of chemotherapy [...] on file Legal Sex Female 1:20 PM SKETCH ARTIST Gender Identity Not on file Sexual Orientation Not on file Obstetrics History Para Term AB IAB SAB Ectopic Multiple Livin g Live Births 3 3 3 3 3 Date Outcome GA Total Labor Labor/2nd/3rd Weight Sex Type Anes PTL Joanie A1 A5 Name Clin SAB SAB SAB Last Filed Vital Signs Vital Sign Reading Time Taken Comments Blood Pressure 130/70 12/09/2024 11:13 AM SKETCH ARTIST Pulse 87 12/09/2024 11:13 AM SKETCH ARTIST Temperature 36.3 C (97.3 F) 12/09/2024 11:13 AM SKETCH ARTIST Respiratory Rate 18 10/27/2024 11:11 AM SKETCH ARTIST Oxygen Saturation 98% 12/09/2024 11:13 AM SKETCH ARTIST Inhaled Oxygen Concentration - - Weight 86.2 kg (190 lb 1.6 oz) 12/09/2024 11:13 AM SKETCH ARTIST Height 160 cm (5' 3 ) 12/09/2024 11:13 AM SKETCH ARTIST Body Mass Index 33.67 12/09/2024 11:13 AM SKETCH ARTIST Plan of Treatment Health Maintenance Due Date [...] 08/07/2021, 07/16/2016 Colon Cancer Screening-DNA Stool Discontinued 08/07/20 21, 07/16/2016 Colon Cancer Screening-FIT Discontinued 08/07/2021, Colon Cancer Screening-Sigmoidoscopy Discontinued 08/07/2021, 07/16/2016 Zoster Vaccine Completed 09/11/2022, 02/05, 06/28/2017 Procedures Procedure Name Priority Date/Time Associated Diagnosis Comments NM BONE IMAGING WHOLE BODY Schedule Routine, Read Routine (OP Routine) 12/02/2024 2:40 PM SKETCH ARTIST Bony abnormality History of breast cancer Bony sclerosis EGFR Routine 10/27/2024 1:04 PM SKETCH ARTIST COMPREHENSIVE METABOLIC PANEL Routine 10/27/2024 1:04 PM SKETCH ARTIST EGFR Routine 10/27/2024 11:51 AM SKETCH ARTIST Rheumatoid arthritis involving multiple sites, unspecified whether rheumatoid factor present (HCC) Moderate persistent asthma without complication DIFFERENTIAL AUTO Routine 10/27/2024 11: 51 AM SKETCH ARTIST Rheumatoid arthritis involving multiple sites, unspecified whether rheumatoid factor present (HCC) Moderate persistent asthma without complication VITAMIN D 25 HYDROXY Routine 10/27/2024 11:51 AM SKETCH ARTIST Vitamin D deficiency CBC WITH AUTO DIFFERENTIAL Routine 10/27/2024 11:51 AM SKETCH ARTIST Rheumatoid arthritis involving multiple sites, unspecified whether rheumatoid factor present (HCC) Moderate persistent asthma without complication COMPREHENSIVE METABOLIC PANEL Routine 10/27/2024 11:51 AM SKETCH ARTIST Rheumatoid arthritis involving multiple sites, unspecified whether rheumatoid factor present (HCC) Moderate persistent asthma without complication DIAGNOSTIC MAMMOGRAM BILATERAL W DAREK Schedule DHRUV, Read DHRUV (Appt Today, Awaiting Results) 12/24/2023 8:24 AM CDT BRCA1 gene mutation positive Personal history of breast cancer DEXA AXIAL SKELETON BONE DENSITY 1 OR MORE SITES Schedule Routine, Read Routine (OP Routine) 11/20/2022 10:30 AM SKETCH ARTIST Malignant neoplasm of upper-inner quadrant of right breast in female, estrogen receptor negative (HCC) BRCA1 gene mutation positive COLONOSCOPY 08/07/2021 12:32 PM CDT SERUM HEPATITIS C AB Routine 07/10/2016 4:26 PM CDT from Last 3 Months or Most Recently Relevant to Health Maintenance Results * NM Bone Imaging Whole Body (12/02/2024 2:40 PM SKETCH ARTIST) Anatomical Region Laterality Modality N/A Nuclear Medicine 12/03/2024 12:2 9 PM SKETCH ARTIST Narrative 12/03/2024 12:43 PM SKETCH ARTIST EXAM DESCRIPTION: NM BONE IMAGING WHOLE BODY RADIOPHARMACEUTICAL: 25 mCi Tc-99m MDP via a right antecubital vein IV site REASON FOR STUDY: Sternal sclerotic lesion. History of breast cancer. TECHNIQUE: Delayed whole-body scintigrams were obtained. COMPARISON: Prior Bone Scan: None Prior Anatomic imaging: CT chest 08/05/2024 FINDINGS: Delayed total body images and spot views of the pelvis and calvarium were obtained. There is mild uptake within the upper sternum corresponding to the abnormality on the prior CT scan. Uptake in the left upper lumbar spine and in the mid lumbar spine has a pattern most typical of degenerative change although no corresponding cross-sectional imaging of this area is available. Uptake in the maxillary sinuses is likely reactive. There is normal genitourinary and soft tissue uptake. IMPRESSION: 1. Mild uptake in the upper sternum corresponding to the patchy sclerosis on the CT scan. The uptake from metastatic disease would be expected to be more intense. The mild uptake favors a more chronic process and could include prior trauma with remodeling or even prior infection (possibly related to the chronic seroma/hematoma in the adjacent soft tissues). Metastatic disease is thought less likely but not entirely excluded. Could repeat bone scan in 3-6 months. Could also consider a PET-CT. 2. Presumed degenerative type uptake within the lumbar spine. These areas can be reassessed on follow-up imaging. THIS IS AN ELECTRONICALLY VERIFIED FINAL REPORT 12/03/2024 12:43 PM - Electronically signed by Kang Tijerina M.D. LB: YIN Report ID: [id number] Reading Location: [id number] Procedure Note Kang Tijerina MD - 12/03/2024 EXAM DESCRIPTION: NM BONE IMAGING WHOLE BODY RADIOPHARMACEUTICAL: 25 mCi Tc-99m MDP via a right antecubital veinIV site REASON FOR STUDY: Sternal sclerotic lesion. History of breast cancer. TECHNIQUE: Delayed whole-body scintigrams were obtained. COMPARISON: Prior Bone Scan: None Prior Anatomic imaging: CT chest 08/05/2024 FINDINGS: Delayed total body images and spot views of the pelvis and calvariumwere obtained. There is mild uptake within the upper sternum corresponding tothe abnormality on the prior CT scan. Uptake in the left upper lumbar spineand in the mid lumbar spine has a pattern most typical of degenerative change although no corresponding cross-sectional imaging of this area isavailable. Uptake in the maxillary sinuses is likely reactive. There is normal genitourinary and soft tissue uptake. IMPRESSION: 1. Mild uptake in the upper sternum corresponding to the patchysclerosis on the CT scan. The uptake from metastatic disease would be expected to bemore intense. The mild uptake favors a more chronic process and could include prior trauma with remodeling or even prior infection (possibly related tothe chronic seroma/hematoma in the adjacent soft tissues). Metastatic diseaseis thought less likely but not entirely excluded. Could repeat bone scan in3-6 months. Could also consider a PET-CT. 2. Presumed degenerative type uptake within the lumbar spine. Theseareas can be reassessed on follow-up imaging. THIS IS AN ELECTRONICALLY VERIFIED FINAL REPORT 12/03/2024 12:43 PM - Electronically signed by Kang Tijerina M.D. LB: LB Report ID: [id number] Reading Location: [place] [address] us Farzana Philippe MD IMG NM PROCEDURES Final Res ult * eGFR (10/27/2024 1:04 PM SKETCH ARTIST) eGFR >90 >=60 mL/min/1. 73 m2 Comment: [...] last reviewed 2021. Blood 10/27/2024 1:04 PM SKETCH ARTIST 10/27/2024 3:35 PM SKETCH ARTIST us Rachelle Jay MD LAB BLOOD ORDERABLES Final Resul t [facility] [address] Department of [place] [address] * Comprehensive metabolic panel (10/27/2024 1:04 PM SKETCH ARTIST) Sodium 142 135 - 145 mmol/L Potassium, pl 4.4 3.3 - 4.9 mmol/L [facility] Chloride 104 97 - 110 mmol/L [facility] CO2 30 22 - 32 mmol/L [facility] Anion gap 8 2 - 15 mmol/L [facility] BUN 12 6 - 25 mg/dL [facility] Creatinine 0.65 0.60 - 1.10 mg/dL [facility] Glucose 98 70 - 199 mg/dL [facility] Comment: Interpretive Data Fasting glucose >/= 126 [...] 8.5 - 10.3 mg/dL [facility] Bilirubin, total 0.3 0.1 - 1.2 mg/dL [facility] Protein, pl 6.7 6.5 - 8.5 g/dL [facility] Albumin 4.1 3.5 - 5.0 g/dL [facility] Alk phos 116 40 - 130 Units/L [facility] ALT 26 7 - 45 Units/L [facility] AST 28 10 - 45 Units/L [facility] Blood 10/27/2024 1:04 PM SKETCH ARTIST 10/27/2024 3:35 PM SKETCH ARTIST us Rachelle Jay MD LAB BLOOD ORDERABLES Final Resul t [facility] [address] Department [place] [address] * eGFR (10/27/2024 11:51 AM SKETCH ARTIST) [facility] eGFR 89 >=60 mL/min/1. 73 m2 Comment: [...] reviewed 2021. Blood 10/27/2024 11:5 1 AM SKETCH ARTIST 10/27/2024 3:42 PM SKETCH ARTIST us Farzana Philippe MD LAB BLOOD ORDERABLES Final Result [facility] [address] Department [place] [address] * Differential, auto (10/27/2024 11:51 AM SKETCH ARTIST) Pathologist [facility] Neutrophil abs 3.2 1.5 - 6.5 K/cumm Imm gran abs 0.0 0.0 - 0.1 K/cumm [facility] Lymphocyte abs 1.1 0.8 - 3.3 K/cumm [facility] Monocyte abs 0.6 0.2 - 0.8 K/cumm [facility] Eosinophil abs 0.0 0.0 - 0.5 K/cumm [facility] Basophil abs 0.0 0.0 - 0.1 K/cumm [facility] Neutrophil pct 65.2 % [facility] Comment: Interpretive Data Percent cell count reference ranges are not reported, since discordance with absolute values may lead to misinterpretation of CBC data. Current Interpretive Data was last revised on 2018. Imm gran pct 0.2 % [facility] Comment: Interpretive Data Percent cell count reference ranges are not reported, since discordance with absolute values may lead to misinterpretation of CBC data. Current Interpretive Data was last revised on 2018. Lymphocyte pct 21.6 % [facility] Comment: Interpretive Data Percent cell count reference ranges are not reported, since discordance with absolute values may lead to misinterpretation of CBC data. Current Interpretive Data was last revised on 2018. Monocyte pct 11.6 % [facility] Comment: Interpretive Data Percent cell count reference ranges are not reported, since discordance with absolute values may lead to misinterpretation of CBC data. Current Interpretive Data was last revised on 2018. Eosinophil pct 0.8 % [facility] Comment: Interpretive Data Percent cell count reference ranges are not reported, since discordance with absolute values may lead to misinterpretation of CBC data. Current Interpretive Data was last revised on 2018. Basophil pct 0.6 % [facility] Comment: Interpretive Data Percent cell count reference ranges are not reported, since discordance with absolute values may lead to misinterpretation of CBC data. Current Interpretive Data was last revised on 2018. Blood 10/27/2024 11:5 1 AM SKETCH ARTIST 10/27/2024 3:42 PM SKETCH ARTIST us Farzana Philippe MD LAB BLOOD ORDERABLES Final Result [facility] [address] Department [place] [address] * (ABNORMAL) CBC with auto differential (10/27/2024 11:51 AM SKETCH ARTIST) WBC 4.9 3.8 - 9.9 K/cumm Hgb 13.9 11.9 - 15.5 g/dL [facility] Hct 44.1 35.6 - 45.5 % [facility] Plt 199 150 - 400 K/cumm [facility] MPV 10.7 9.1 - 12.3 fL [facility] RBC 4.50 3.90 - 5.20 M/cumm [facility] MCV 98.0(H) 81.3 - 96.4 fL [facility] MCH 30.9 27.1 - 33.3 pg [facility] MCHC 31.5(L) 32.3 - 35.7 g/dL [facility] RDW CV 13.4 11.1 - 14.9 % [facility] RDW SD 48.8(H) 35.7 - 48.1 fL [facility] NRBC abs 0.00 0.00 - 0.01 K/cumm [facility] Blood 10/27/2024 11:5 1 AM SKETCH ARTIST 10/27/2024 3:42 PM SKETCH ARTIST Farzana Philippe MD LAB BLOOD ORDERABLES Final Result Performing Organization Address [facility]/ZIP Co de Phone Number [facility] [address] [facility] [place] [address] * Vitamin D 25 hydroxy (10/27/2024 11:51 AM SKETCH ARTIST) [facility] Vitamin D 25-OH 55 30 - 80 ng/mL Blood 10/27/2024 11:5 1 AM SKETCH ARTIST 10/27/2024 3:42 PM SKETCH ARTIST Farzana Philippe MD LAB BLOOD ORDERABLES Final Result Performing Organization Address City/[facility]/ZIP Co de Phone Number [facility] [address] Department [place] [address] * Comprehensive metabolic panel (10/27/2024 11:51 AM SKETCH ARTIST) [facility] Sodium 143 135 - 145 mmol/L Potassium, pl 4.4 3.3 - 4.9 mmol/L [facility] Chloride 105 97 - 110 mmol/L [facility] CO2 29 22 - 32 mmol/L [facility] Anion gap 9 2 - 15 mmol/L [facility] BUN 11 6 - 25 mg/dL [facility] Creatinine 0.71 0.60 - 1.10 mg/dL [facility] Glucose 91 70 - 199 mg/dL [facility] Comment: Interpretive Data Fasting glucose >/= 126 [...] 8.5 - 10.3 mg/dL [facility] Bilirubin, total 0.3 0.1 - 1.2 mg/dL [facility] Protein, pl 6.9 6.5 - 8.5 g/dL [facility] Albumin 4.1 3.5 - 5.0 g/dL [facility] Alk phos 114 40 - 130 Units/L [facility] ALT 24 7 - 45 Units/L [facility] AST 28 10 - 45 Units/L [facility] Blood 10/27/2024 11:5 1 AM SKETCH ARTIST 10/27/2024 3:42 PM SKETCH ARTIST us Farzana Philippe MD LAB BLOOD ORDERABLES Final Result [facility] [address] Department [place] [address] * Diagnostic Mammogram Bilateral W Darek (12/24/2023 [...] the examination. Electronically signed by: BUSTER CASEY Dannie 12/24/2023 9:13 AM CDT EXAMINATION: DIAGNOSTIC MAMMOGRAM [...] left breast is performed by both the fountain operator and myself. At the level of palpable [...] 1 or 2 Site (11/20/2022 10:30 AM SKETCH ARTIST) Anatomical Region Laterality Modality Body N/A Digital Radiogra phy 11/20/2022 10:3 5 AM SKETCH ARTIST Impressions 11/20/2022 10:35 AM SKETCH ARTIST Low bone mass (osteopenia) which depending on the clinical circumstances may result in a moderate increased risk of fragility fracture. If followup is to be done, for technical reasons, it should be performed on this same machine. Electronically signed by: Joe Flannery M.D. Narrative 11/20/2022 10:35 AM SKETCH ARTIST EXAM: Bone mineral density examination HISTORY: Osteopenia. Postmenopausal.. DXA BMD was done at [facility] on a [employer]. Precision testing at this site is [...] Osteopenia. Postmenopausal.. DXA BMD was done at [facility] on a [employer] W. Precision testing at this site is [...] signed by: Joe Flannery M.D. us Yonny Whitehead MD IMG DXA PROCEDURES Final Result * COLONOSCOPY (08/07/2021 12:32 PM CDT) Anatomical Region Laterality Modality Other Narrative Procedure Note Clifton Garcia MD - 08/07/2021 12:32 PM CDT ENDOSCOPY LAB Patient Name: Jody Kim Procedure Date: 08/07/2021 12:32 PM Admit Type: Outpatient Room: [facility] 3 Date of : 1950 Instrument Name: [id number] [...] HISTOR ICAL RESULTS Comment:Test performed at [facility], [address] [place] [address], [facility] Serum 07/10/2016 4:26 PM CDT Historical Provider LAB BLOOD ORDERABLES Gina mcfarlane Result CDR HISTORICAL RESULTS from Last 3 Months or Most Recently Relevant to Health Maintenance Insurance MEDICARE [facility] [place] [address] [facility] CHOICE PLUS MEDICARE [facility] Address: [address] [address] [place] [address] [facility] [place] [address] [facility] [address] MEDICARE [facility] [place] [address] Advance Directives For more information, please contact: [phone] * Full Code (Latest Code Status on File) Date Activated Date Inactivated Comments 08/07/2021 11:37 AM 08/07/2021 6:34 PM Care Teams Beam Warper Relationship Specialty Start Date End Date Farzana Philippe MD [address] [place] [address] PCP - General 01/04/17 Ashlyn Prince MD [address] [place] [address] Obstetrics and Gynecology 07/15/17 Hang Mcfadden MD [address] [place] [address] Radiation Oncology 07/15/17 Yonny Whitehead MD [address] [place] [address] Medical Oncologist/Paleontology Teacher Hematology 05/13/20 Eric Peck MD [address] [place] [address] Consulting Physician Surgical Oncology 12/18/23
--- OUTSIDE RECORDS SUMMARY | 2024-12-17 11:56 | XMS_ITS | Referral Summary ---
Author Organization [facility] Address [address] [place] [address] Care Team Providers Care Hospital Aides And Assistants Teacher Name Role Phone Farzana Philippe MD Primary Care Provider Ashlyn Prince MD Unavailable Hang Mcfadden MD Unavailable Yonny Whitehead MD Unavailable Eric Peck MD Unavailable [phone] Encounters Date Type Department Care Team Description 12/09/2024 11:15 AM MEDIA ASSOCIATE Office Visit [facility] Pulmonary at [place] [address] [place] [phone] Carson Arora MD Eosinophilic asthma (Primary Dx); Peripheral eosinophilia; Rheumatoid arthritis of other site, unspecified whether rheumatoid factor present (HCC) 12/03/2024 Results Follow-Up [facility] Primary Care at [facility] [address] [address] Farzana Philippe MD 12/02/2024 10:01 AM MEDIA ASSOCIATE - 12/02/2024 11:59 PM MEDIA ASSOCIATE Hospital Encounter [facility] [address] [place] [address] Discharge Disposition: Discharge to home or self care 12/02/2024 10:00 AM MEDIA ASSOCIATE - 12/02/2024 11:59 PM MEDIA ASSOCIATE Hospital Encounter [facility] [address] [place] [address] Bony abnormality; History of breast cancer; Bony sclerosis Discharge Disposition: Discharge to home or self care 11/12/2024 Telephone [facility] Pulmonary at [address] [place] [phone] Mary Paz LPN [place] 10/27/2024 1:52 PM MEDIA ASSOCIATE - 10/27/2024 11:59 PM MEDIA ASSOCIATE Hospital Encounter [facility] [address] [place] [phone] Discharge Disposition: Discharge to home or self care 10/27/2024 1:00 PM MEDIA ASSOCIATE Lab [facility] [address] [place] [address] 10/27/2024 11:30 AM MEDIA ASSOCIATE Office Visit [facility] Primary Care at [facility] 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; Chronic bilateral low back pain with bilateral sciatica 09/18/2024 9:30 AM MEDIA ASSOCIATE Clinical Support [facility] Pulmonary at [address] [place] [address] Carson Arora MD from Last 3 Months Allergies Active Allergy Reactions Criticality Noted Date Comments Amoxicillin-Pot Clavulanate Rash Medium 08/06/2022 Kiwi Shortness of breath High 11/17/2020 Meperidine Unknown 01/30/2009 Sulfa (Sulfonamide Antibiotics) Itching Low Reaction: Itching, , , , Reaction: Itching, , , Sulfanilamide Itching Low Reaction: Itching, , Reaction: Itching, Sulfasalazine Unknown 01/03/2011 Medications [id number]-[id number]-md [id number] (CENTRUM SILVER WOMEN) 8 mg iron-400 mcg-300 [...] USE WITH NEBULIZER SOLUTION DIRECTED J45.909 04/13/20 Active fluticasone-ume clidin-vilanter (Trelegy Ellipta) 100-62.5-25 mcg inhaler Inhale 1 puff daily 60 each 07/22/20 24 Active mepolizumab (Nucala) 100 mg/mL auto-injector Inject 1 mL (100 mg total) under the skin every 4 (four) weeks 1 mL 09/02/20 24 Active UNABLE TO FIND Take [...] by mouth every 12 (twelve) hours 11/28/19 25 Active zolpidem (AMBIEN) 10 mg tabletIndicatio ns:Sleep-Onset [...] with Bronchospasms 3 mL nebu Once (respiratory therapist) 06/27/2023 Activ e Active Problems Problem [...] 12/11/2021 Assessment & Plan (12/11/2021 9:08 AM MEDIA ASSOCIATE): Worse Sees pain management Increase gabapentin Edema 06/15/2021 Assessment & Plan (12/11/2021 9:06 AM MEDIA ASSOCIATE): Chronic worse Left greater than right [...] is to wear 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 EKG NSR- RBBB present in 2019 Right calf pain 12/11/2021 10/27/2024 Assessment & Plan (12/11/2021 9:09 AM MEDIA ASSOCIATE): New Pinpoint in left calf mid leg- medial Venous doppler today evaluate for DVT No finding- address edema and varicose veins Acute sinusitis 10/08/2019 03/22/2021 Assessment & Plan (07/08/2020 12:41 PM CDT): Rest, fluids antibiotics Assessment & Plan (10/08/2019 10:07 AM MEDIA ASSOCIATE): Rest fluids start Augmentin Flonase ffca-tht-[id number] We discussed referral to allergy for control [...] 11/19/2018 Assessment & Plan (10/14/2018 1:14 PM MEDIA ASSOCIATE): Check for pneumonia-cxr good lung sounds. [...] 11/19/2018 Assessment & Plan (10/14/2018 1:14 PM MEDIA ASSOCIATE): Try 100mg gabapentin during the day , 300 at night for pain Continue with pain management. Assessment & Plan (10/21/2017 2:01 PM MEDIA ASSOCIATE): bilat shoulder and neck pain. Suspect [...] provided. Assessment & Plan (10/08/2019 10:04 AM MEDIA ASSOCIATE): BMI Follow-up includes: education provided. Assessment & Plan (06/02/2019 4:39 PM CDT): BMI Follow-up includes: education provided. Assessment & Plan (05/13/2019 3:38 PM CDT): BMI Follow-up includes: education provided. Assessment & Plan (03/19/2019 4:03 PM CDT): BMI Follow-up includes: education provided. Assessment & Plan (10/14/2018 1:11 PM MEDIA ASSOCIATE): BMI Follow-up includes: education provided. Assessment & Plan (10/02/2018 8:36 AM MEDIA ASSOCIATE): BMI Follow-up includes: education provided. Assessment [...] on file Legal Sex Female 1:20 PM MEDIA ASSOCIATE Gender Identity Not on file Sexual Orientation Not on file Last Filed Vital Signs Vital Sign Reading Time Taken Comments Blood Pressure 130/70 12/09/2024 11:13 AM MEDIA ASSOCIATE Pulse 87 12/09/2024 11:13 AM MEDIA ASSOCIATE Temperature 36.3 C (97.3 F) 12/09/2024 11:13 AM MEDIA ASSOCIATE Respiratory Rate 18 10/27/2024 11:11 AM MEDIA ASSOCIATE Oxygen Saturation 98% 12/09/2024 11:13 AM MEDIA ASSOCIATE Inhaled Oxygen Concentration - - Weight 86.2 kg (190 lb 1.6 oz) 12/09/2024 11:13 AM MEDIA ASSOCIATE Height 160 cm (5' 3 ) 12/09/2024 11:13 AM MEDIA ASSOCIATE Body Mass Index 33.67 12/09/2024 11:13 AM MEDIA ASSOCIATE Plan of Treatment Not on file Procedures Procedure Name Priority Date/Time Associated Diagnosis Comments NM BONE IMAGING WHOLE BODY Schedule Routine, Read Routine (OP Routine) 12/02/2024 2:40 PM MEDIA ASSOCIATE Bony abnormality History of breast cancer Bony sclerosis EGFR Routine 10/27/2024 1:04 PM MEDIA ASSOCIATE COMPREHENSIVE METABOLIC PANEL Routine 10/27/2024 1:04 PM MEDIA ASSOCIATE EGFR Routine 10/27/2024 11:51 AM MEDIA ASSOCIATE Rheumatoid arthritis involving multiple sites, unspecified whether rheumatoid factor present (HCC) Moderate persistent asthma without complication DIFFERENTIAL AUTO Routine 10/27/2024 11: 51 AM MEDIA ASSOCIATE Rheumatoid arthritis involving multiple sites, unspecified whether rheumatoid factor present (HCC) Moderate persistent asthma without complication VITAMIN D 25 HYDROXY Routine 10/27/2024 11:51 AM MEDIA ASSOCIATE Vitamin D deficiency CBC WITH AUTO DIFFERENTIAL Routine 10/27/2024 11:51 AM MEDIA ASSOCIATE Rheumatoid arthritis involving multiple sites, unspecified whether rheumatoid factor present (HCC) Moderate persistent asthma without complication COMPREHENSIVE METABOLIC PANEL Routine 10/27/2024 11:51 AM MEDIA ASSOCIATE Rheumatoid arthritis involving multiple sites, unspecified whether rheumatoid factor present (HCC) Moderate persistent asthma without complication DIAGNOSTIC MAMMOGRAM BILATERAL W DAREK Schedule DHRUV, Read DHRUV (Appt Today, Awaiting Results) 12/24/2023 8:24 AM CDT BRCA1 gene mutation positive Personal history of breast cancer DEXA AXIAL SKELETON BONE DENSITY 1 OR MORE SITES Schedule Routine, Read Routine (OP Routine) 11/20/2022 10:30 AM MEDIA ASSOCIATE Malignant neoplasm of upper-inner quadrant of right breast in female, estrogen receptor negative (HCC) BRCA1 gene mutation positive COLONOSCOPY 08/07/2021 12:32 PM CDT SERUM HEPATITIS C AB Routine 07/10/2016 4:26 PM CDT from Last 3 Months or Most Recently Relevant to Health Maintenance Results * NM Bone Imaging Whole Body (12/02/2024 2:40 PM MEDIA ASSOCIATE) Anatomical Region Laterality Modality N/A Nuclear Medicine 12/03/2024 12:2 9 PM MEDIA ASSOCIATE Narrative 12/03/2024 12:43 PM MEDIA ASSOCIATE EXAM DESCRIPTION: NM BONE IMAGING WHOLE BODY [...] - Electronically signed by Kang Tijerina M.D. : YIN Report ID: [id number] Reading Location: [id number] Procedure Note Kang Tijerina MD - 12/03/2024 [...] 12:43 PM - Electronically signed by Kang ESQUEDA: YIN Report ID: [id number] Reading Location: [id number] us Farzana Philippe MD IM NM PROCEDURES Final Res ult * eGFR (10/27/2024 1:04 PM MEDIA ASSOCIATE) eGFR >90 >=60 mL/min/1. 73 m2 Comment: [...] last reviewed 2021. Blood 10/27/2024 1:04 PM MEDIA ASSOCIATE 10/27/2024 3:35 PM MEDIA ASSOCIATE us Rachelle Jay MD LAB BLOOD ORDERABLES Final Resul t [facility] [address] Department [place] [address] * Comprehensive metabolic panel (10/27/2024 1:04 PM MEDIA ASSOCIATE) Pathologist [facility] Sodium 142 135 - 145 mmol/L Potassium, pl 4.4 3.3 - 4.9 mmol/L [facility] Chloride 104 97 - 110 mmol/L [facility] CO2 30 22 - 32 mmol/L [facility] Anion gap 8 2 - 15 mmol/L [facility] BUN 12 6 - 25 mg/dL [facility] Creatinine 0.65 0.60 - 1.10 mg/dL [facility] Glucose 98 70 - 199 mg/dL [facility] Comment: Interpretive Data Fasting glucose >/= 126 [...] 2022. Calcium 9.3 8.5 - 10.3 mg/dL [facility] Bilirubin, total 0.3 0.1 - 1.2 mg/dL [facility] Protein, pl 6.7 6.5 - 8.5 g/dL [facility] Albumin 4.1 3.5 - 5.0 g/dL [facility] Alk phos 116 40 - 130 Units/L [facility] ALT 26 7 - 45 Units/L [facility] AST 28 10 - 45 Units/L [facility] Blood 10/27/2024 1:04 PM MEDIA ASSOCIATE 10/27/2024 3:35 PM MEDIA ASSOCIATE us Rachelle Jay MD LAB BLOOD ORDERABLES Final Resul t [facility] [address] Department [place] [address] * eGFR (10/27/2024 11:51 AM MEDIA ASSOCIATE) eGFR 89 >=60 mL/min/1. 73 m2 Comment: [...] reviewed 2021. Blood 10/27/2024 11:5 1 AM MEDIA ASSOCIATE 10/27/2024 3:42 PM MEDIA ASSOCIATE us Farzana Philippe MD LAB BLOOD ORDERABLES Final Result [facility] [address] Department [place] [address] * Differential, auto (10/27/2024 11:51 AM MEDIA ASSOCIATE) Neutrophil abs 3.2 1.5 - 6.5 K/cumm Imm gran abs 0.0 0.0 - 0.1 K/cumm [facility] Lymphocyte abs 1.1 0.8 - 3.3 K/cumm [facility] Monocyte abs 0.6 0.2 - 0.8 K/cumm [facility] Eosinophil abs 0.0 0.0 - 0.5 K/cumm [facility] Basophil abs 0.0 0.0 - 0.1 K/cumm [facility] Neutrophil pct 65.2 % [facility] Comment: Interpretive Data Percent cell count reference ranges are not reported, since discordance with absolute values may lead to misinterpretation of CBC data. Current Interpretive Data was last revised on 2018. Imm gran pct 0.2 % [facility] Comment: Interpretive Data Percent cell count reference ranges are not reported, since discordance with absolute values may lead to misinterpretation of CBC data. Current Interpretive Data was last revised on 2018. Lymphocyte pct 21.6 % [facility] Comment: Interpretive Data Percent cell count reference ranges are not reported, since discordance with absolute values may lead to misinterpretation of CBC data. Current Interpretive Data was last revised on 2018. Monocyte pct 11.6 % [facility] Comment: Interpretive Data Percent cell count reference ranges are not reported, since discordance with absolute values may lead to misinterpretation of CBC data. Current Interpretive Data was last revised on 2018. Eosinophil pct 0.8 % [facility] Comment: Interpretive Data Percent cell count reference ranges are not reported, since discordance with absolute values may lead to misinterpretation of CBC data. Current Interpretive Data was last revised on 2018. Basophil pct 0.6 % [facility] Comment: Interpretive Data Percent cell count reference ranges are not reported, since discordance with absolute values may lead to misinterpretation of CBC data. Current Interpretive Data was last revised on 2018. Blood 10/27/2024 11:5 1 AM MEDIA ASSOCIATE 10/27/2024 3:42 PM MEDIA ASSOCIATE us Farzana Philippe MD LAB BLOOD ORDERABLES Final Result Performing Organization Address City/[facility]/ZIP Co de Phone Number [facility] [address] Department [place] [address] * (ABNORMAL) CBC with auto differential (10/27/2024 11:51 AM MEDIA ASSOCIATE) WBC 4.9 3.8 - 9.9 K/cumm Hgb 13.9 11.9 - 15.5 g/dL [facility] Hct 44.1 35.6 - 45.5 % [facility] Plt 199 150 - 400 K/cumm [facility] MPV 10.7 9.1 - 12.3 fL [facility] RBC 4.50 3.90 - 5.20 M/cumm [facility] MCV 98.0(H) 81.3 - 96.4 fL [facility] MCH 30.9 27.1 - 33.3 pg [facility] MCHC 31.5(L) 32.3 - 35.7 g/dL [facility] RDW CV 13.4 11.1 - 14.9 % [facility] RDW SD 48.8(H) 35.7 - 48.1 fL [facility] NRBC abs 0.00 0.00 - 0.01 K/cumm [facility] Blood 10/27/2024 11:5 1 AM MEDIA ASSOCIATE 10/27/2024 3:42 PM MEDIA ASSOCIATE us Farzana Philippe MD LAB BLOOD ORDERABLES Final Result [facility] [address] Department [place] [address] * Vitamin D 25 hydroxy (10/27/2024 11:51 AM MEDIA ASSOCIATE) [facility] Vitamin D 25-OH 55 30 - 80 ng/mL Blood 10/27/2024 11:5 1 AM MEDIA ASSOCIATE 10/27/2024 3:42 PM MEDIA ASSOCIATE Farzana Philippe MD LAB BLOOD ORDERABLES Final Result Performing Organization Address [facility] Co de Phone Number [facility] [address] [place] [address] * Comprehensive metabolic panel (10/27/2024 11:51 AM MEDIA ASSOCIATE) [facility] Sodium 143 135 - 145 mmol/L Potassium, pl 4.4 3.3 - 4.9 mmol/L [facility] Chloride 105 97 - 110 mmol/L [facility] CO2 29 22 - 32 mmol/L [facility] Anion gap 9 2 - 15 mmol/L [facility] BUN 11 6 - 25 mg/dL [facility] Creatinine 0.71 0.60 - 1.10 mg/dL [facility] Glucose 91 70 - 199 mg/dL [facility] Comment: Interpretive Data Fasting glucose >/= 126 [...] 2022. Calcium 9.4 8.5 - 10.3 mg/dL [facility] Bilirubin, total 0.3 0.1 - 1.2 mg/dL [facility] Protein, pl 6.9 6.5 - 8.5 g/dL [facility] Albumin 4.1 3.5 - 5.0 g/dL [facility] Alk phos 114 40 - 130 Units/L [facility] ALT 24 7 - 45 Units/L [facility] AST 28 10 - 45 Units/L [facility] Blood 10/27/2024 11:5 1 AM MEDIA ASSOCIATE 10/27/2024 3:42 PM MEDIA ASSOCIATE us Farzana Philippe MD LAB BLOOD ORDERABLES Final Result [facility] [address] Department [place] [address] * Diagnostic Mammogram Bilateral W Darek (12/24/2023 [...] left breast is performed by both the green building energy engineer and myself. At the level of palpable [...] 1 or 2 Site (11/20/2022 10:30 AM MEDIA ASSOCIATE) Anatomical Region Laterality Modality Body N/A Digital Radiogra phy 11/20/2022 10:3 5 AM MEDIA ASSOCIATE Impressions 11/20/2022 10:35 AM MEDIA ASSOCIATE Low bone mass (osteopenia) which depending on the clinical circumstances may result in a moderate increased risk of fragility fracture. If followup is to be done, for technical reasons, it should be performed on this same machine. Electronically signed by: Joe Flannery M.D. Narrative 11/20/2022 10:35 AM MEDIA ASSOCIATE EXAM: Bone mineral density examination HISTORY: Osteopenia. Postmenopausal.. DXA BMD was done at [facility] on a [employer] W. Precision testing at this site is [...] Osteopenia. Postmenopausal.. DXA BMD was done at [facility] on a [employer] W. Precision testing at this site is [...] machine. Electronically signed by: Joe Flannery M.D. [facility] DXA PROCEDURES Final Result * COLONOSCOPY (08/07/2021 12:32 PM CDT) Anatomical Region Laterality Modality Other Narrative Procedure Note Clifton Garcia MD - 08/07/2021 12:32 PM CDT ENDOSCOPY LAB Patient Name: Jody Kim Procedure Date: 08/07/2021 12:32 PM Admit Type: Outpatient Room: [facility] [address] 3 Date of : 1950 Instrument Name: -[id number] Gender: Female Note Status: Finalized Procedure: Colonoscopy Indications: High risk colon cancer surveillance: Personalhistory of colonic polyps, Last colonoscopy: 2015 Providers: Clifton Garcia M.D. Referring MD: Fazrana Philippe M.D. Medicines: Propofol per Anesthesia Complications: [...] CDR HISTOR ICAL RESULTS Comment:Test performed at [facility], [address] [place] [address], [place]., [address] Serum 07/10/2016 4:26 PM CDT us Historical Provider LAB BLOOD ORDERABLES Gina mcfarlane Result CDR HISTORICAL RESULTS from Last 3 Months or Most Recently Relevant to Health Maintenance Insurance MEDICARE [facility] [place] [address] [facility] CHOICE PLUS MEDICARE [employer] [place] [address] MEDICARE [facility] [place] [address] Advance Directives For more information, please contact: [phone] * Full Code (Latest Code Status on File) Date Activated Date Inactivated Comments 08/07/2021 11:37 AM 08/07/2021 6:34 PM Care Teams Hospital Aides And Assistants Teacher Relationship Specialty Start Date End Date Farzana Philippe MD [address] [place] [address] PCP - General 01/04/17 Ashlyn Prince MD [address] [place], [place] [id number] Obstetrics and Gynecology 07/15/17 Hang Mcfadden MD [address] [place] [address] Radiation Oncology 07/15/17 Yonny Whitehead MD [address] [place] [address] Medical Oncologist/[employer] Car Loader Hematology 05/13/20 Eric Peck MD [address] [facility] [address] [place] [address] Consulting Physician Surgical Oncology 12/18/23
--- OUTSIDE RECORDS SUMMARY | 2024-12-17 11:57 | XMS_ITS | Continuity of Care Document ---
Author Organization [employer] [facility] Address [address] [facility] utibilly [place] [address] [place] [phone] Phone Care Team Providers Care Veterinary Attendant Name Role Phone Kevyn Benton MD Unavailable [...] Diagnoses Date Provider Providers Copied on Encounter [facility], [address], [place], [place], [address], [place] tel:[phone] SEC Anupam GOMEZ Professional No Information 9 Chetan Bagley. [address], [address], [place], [place], [address], [place]. tel:[phone] [facility], [id number] [place] [address] [address], [place], [place], [address], [place] tel:[phone] SEC Anupam GOMEZ Professional No Information Apr-0 9 Chetan Bagley. [address] [facility], [facility] [address], [place], [place], [address], [place]. tel:[phone] Specialist: [place], [address] [facility] [address], [place], [address]. tel:[phone] Formerly [facility], [address] [place] [address] [address], [place], [place], [address], [place] tel:[phone] SEC Anupam GOEMZ Professional 6 month Complete (chief complaint) High risk medication useKeratoconj unctivitis siccaAge-rela jose miguel nuclear cataract, bilateralOpti c cupping of both eyes Oct-2 8 Chetan Bagley. [address] [facility], [facility] [place], [address], [place]. tel:[phone] Specialist: Elsi Torre MD, [address] [facility], [address], [place], [address]. tel:[phone] ring Provider: Cayla Angelo, [address] [facility], [place], [address]. tel:[phone] Formerly [facility], [address] [place] [address] [address], [place], [place], [address], [place] tel:[phone] SEC [facility] No Information Aug-2 8 Syd Montes. [address] [facility] [address], [place], [address], [place]. tel:[phone] Office/outpa tient Visit, Est [facility], [address] [place] [address] [address], [place], [place], [address], [place] tel:[phone] SEC Anupam GOMEZ Professional plaquenil check (chief complaint) Other fdc drug therapy 8 Petey Kulkarni. [address] [place], [place], [facility], [place]. tel:[phone] Referring Provider: Cayla Angelo, [address] [place] [address], [address]. tel:[phone] [facility]ly [facility], [address], [place], [place], [address], [place] tel:[phone] SEC Anupam GOMEZ Professional Complete Exam (chief complaint) Other cotton classer drug therapyAge-re lated nuclear cataract, bilateralDry eye syndrome of bilateral lacrimal glands 7 Petey Kulkarni. [address] [place], [address], [place]. tel:[phone] Referring Provider: Ari Dutta, [address] [place], [address]. tel:[phone] [facility], [address], [place], [place], [address], [place] tel:[phone] SEC [facility] No Information 7 Petey Kulkarni. [address] [place], [address], . tel:[phone] Office/outpa tient Visit, Est [facility], [address], [place], [place], [address], [place] tel:[phone] SEC Anupam GOMEZ Professional F/u exam, Plaquenil therapy (chief complaint) Other fdc drug therapyPuncta te keratitis of both eyesDry eye syndrome of right lacrimal glandDry eye syndrome of left lacrimal gland Nov- 6 Mac Chapman. [address] [facility], [place], [place], [address], [place]. tel:[phone] Referring Provider: Ari Wankum A, [address], [place], [address]. tel:[phone] [facility], [address] [place] [address] [address], [place], [place], [address], tel:[phone] SEC [place] Professional F/u exam, Rheumatoid arthritis (chief complaint) No Information 6 Mac Chapman. [address], [place], [place], [address], [place]. tel:[phone] Referring Provider: Ariguido Laceyjayeshmakenna Dutta, [address], [place], [address]. tel:[phone] Office/outpa tient Visit, [facility], [address] [place] [address] [address], [place], [place], [address], tel:[phone] SEC Anupam [place] Professional Blurry vision (chief complaint) No Information 5 Mac Chapman. [address], [place], [address], . tel:[phone] Referring Provider: Ari Hallmakenna Dutta, [address], [place], [address]. tel:[phone] Office/outpa tient Visit, [facility], [address] [place] [address] [address], [place], [place], [address], [place] tel:[phone] SEC Anupam [place] Professional Dry eyes (chief complaint)F /u exam, Plaquenil therapy (chief complaint) No Information 0 4 Mac Chapman. [address], [place], [place], [address], [place]. tel:[phone] Referring Provider: Ari Dutta, [address], [place], [address]. tel:[phone] Office/outpa tient Visit, [facility], [address], [place], [place], [address], tel:[phone] SEC Anupam GOMEZ Professional 2 month check after starting restasis (chief complaint) No Information 4 Abhijitingris Chapman. [address], [facility] [place], [place], [address], . tel:[phone] Referring Provider: Ari Dutta, [address] [facility] [place], [address]. [phone] [facility], [address], [place], [place], [address], tel:[phone] SEC Anupam GOMEZ Professional irritation (chief complaint) No Information 4 Mac Chapman. [address], [facility] [address], [place], [place], [address], . tel:[phone] Referring Provider: Ari Dutta, [address] [place] [place], [address]. [phone] Family History Family Member Type Diagnosis Age At Onset Problem (finding) Family history of Stoma ch cancer Sister Problem (finding) glaucoma Problem (finding) Family history of Breas t Problem (finding) Family history of malignant neoplasm of ovary Close relative Problem (finding) hypertension Payers Payer name Insurance type Covered constitution party ID Authoriza tion(s) [facility] Commercial CI [id number] Social History Type Description Quantity Date Captured [...] Educational material provided Re lated to Other cotton classer drug therapy Impression/Plan Return in 6 months w heavenly Angelo M.D. for follow up exam. Related to Other cotton classer drug therapy Impression/Plan - Di scussed cataracts with pt and treatment options. pt also understands at this time vision does not qualify to have CE with insurance coverage, will monitor. Related to Age-related nuclear cataract, bilateral Follow up - Return i n 6 months with Cayla Angelo M.D. for Plaquenil follow up with OCT MAC Related to Other cotton classer drug therapy Impression/Plan - Hi story of Plaquenil use for 5 years, 200 mg BID PO. No signs of hydroxychloroquine toxicity, OK to continue medication. 10-2 Visual barnett are poor reliability, within normal range. Return to clinic in 6 months for Plaquenil check with OCT MAC or sooner with problems. Plaquenil letter sent to Dr Farzana Philippe. Related to Other cotton classer drug therapy Impression/Plan - Co ntinue Restasis BID OU, refills not needed at this time. Instructed patient to use refresh PM QHS OU. Related to Dry eye syndrome of bilateral lacrimal glands Other fdc drug therapy - Educational material provided Related to Other cotton classer drug therapy Follow up - Return i [...] barnett or sooner with any problems. Other cotton classer drug therapy - Educational material given Related to Other cotton classer drug therapy Other fdc drug therapy - Educational material given Related to Other fdc drug therapy Follow up - Return i [...] to See list of assessments above - 0areb-hlzvld-oz hydroxychloroq uin Related to TEAR FILM INSUFFIC [...] BID OU. Rx for Restasis sent to [place]. RTC in 2 months after starting Restasis. Educational materials provided:about today's exam. Related to See impression: general plan Assessments Type Assessment Date No Information Patient Care Teams Name Effective Dates (start - stop) Status Members No Information
== END 2024-12-17 11:08 | disposition home or self-care (01) ==
PROVIDERS: Emergency Provider Nurse Practitioner
DX: R05.1 Acute cough (principal); Z85.3 Personal history of malignant neoplasm of breast; Z20.822 Contact with and (suspected) exposure to COVID-19
CPT/HCPCS: 87426; 87804; 99213; G0463